=== PATIENT | female | born 1990 | race Caucasian/White ===

== ENCOUNTER 2020-06-01 07:45 | Emergency (ER) | payer MEDICAID, SELFPAY ==
[2020-06-01 07:48] VITALS: BP 160/118; PULSE 83; RESP 16; TEMP 36.3; O2SAT 98; BMI 36.2
--- NOTE | 2020-06-01 09:06 | ED.GENADULT ---
HPI - General Adult General Chief complaint: General Medical Stated complaint: breast issue Time Seen by Provider: 06/01/20 09:06 Source: patient Mode of arrival: ambulatory Limitations: no limitations History of Present Illness MD complaint: R breast pain Onset (ago): month(s) (3) Location: chest (R breast) Radiation: non-radiation Severity: moderate Quality: aching Pain Consistency: constant Relieving factors: none Exacerbating factors: none Associated symptoms: other (lump felt, red area, removed nipple ring in February and noted discharge at that time, + fam hx of breast cancer) Treatments prior to arrival: none Related Data Previous Rx's Medication Instructions Recorded cephalexin 500 mg PO TID 7 Days #21 cap 06/01/20 doxycycline hyclate 100 mg PO BID 7 Days #14 cap 06/01/20 hydrocodone-acetaminophen 1 tab PO Q6H PRN #12 tab 06/01/20 ondansetron 4 mg PO Q8H PRN #20 tab 06/01/20 Allergies Allergy/AdvReac Type Severity Reaction Status Date / Time No Known Allergies Allergy Unverified 03/05/20 15:55 Review of Systems Review of Systems: Constitutional : No Fever, No Chills ENT/Mouth : No sore throat, No Rhinorrhea Eyes: No Eye Pain, No Swelling, No Redness Cardiovascular : No Chest Pain, No SOB Respiratory : No Cough, No Sputum Gastrointestinal : No Nausea, No Vomiting, No Diarrhea, No abdominal Pain Genitourinary : No Dysuria, No Hematuria Musculoskeletal : No joint pain, No Myalgias, No Joint Swelling Skin : No Skin Lesions, no skin rash Neuro : No Weakness, No Numbness, No Headache Psych : No Anxiety, No Depression Heme/Lymph: No Bruising, No Bleeding,No Lymphadenopathy Endocrine : No Polyuria, No Polydipsia All other systems reviewed and are negative PMFSH Past Medical History Attestation statement: The following information was validated with the patient. Medical History Hypertension Social History Social History (Updated 06/01/20 @ 09:17 by Uma Emery DO) Smoking Status: Current every day smoker Use of substances other than those prescribed or required for medical reasons: No Advance Directives: No Advance Directives Information Provided: No Physical Exam Vital Signs: Vital Signs: Last Vital Signs Temp 97.3 F 06/01/20 07:48 Pulse 83 06/01/20 07:48 Resp 16 06/01/20 07:48 BP 160/118 H 06/01/20 07:48 Pulse Ox 98 06/01/20 07:48 Body Mass Index 36.2 Appearance: Alert. Oriented X3. No acute distress. Eyes: Pupils equal, round and reactive to light. ENT: Pharynx normal. Neck: Normal inspection. Neck supple. CVS: Normal heart rate and rhythm. Pulses normal. Chest: R breast lump felt 4cm under R areola, mild erythema, no discharge, no retraction of skin, ttp Respiratory: No respiratory distress. Breath sounds normal. Abdomen: Soft and nontender. Skin: Skin warm and dry. Normal skin color. Normal skin turgor. Extremities: No lower extremity edema. No calf ttp Neuro: Oriented X 3. No motor deficit. No sensory deficit. Course Course Course Narrative: will start on antibiotics and refer to Dr. Oakes for aspiration, I/D. Medical Decision Making MDM Narrative Medical decision making narrative: 29 yo female with R breast lump more painful now for the past few months, could be cyst/abscess though no extensive cellulitis, aware she needs to see PCP for mammogram, will order US and refer to Dr. Oakes for further management. Discharge Plan Discharge Clinical Impression: Abscess of breast Patient Disposition: Home, Self-Care Instructions: Abscess (ED) Additional Instructions: return to ED for any worsening symptoms or concerns PLEASE CALL DR. OAKES SOON POSSIBLE Prescriptions: New hydrocodone-acetaminophen 5-325 mg tablet 1 tab PO Q6H PRN (Reason: pain) Qty: 12 RF: 0 ondansetron 4 mg tablet,disintegrating 4 mg PO Q8H PRN (Reason: nausea and vomiting) Qty: 20 RF: 0 cephalexin 500 mg capsule 500 mg PO TID 7 Days Qty: 21 RF: 0 doxycycline hyclate 100 mg capsule 100 mg PO BID 7 Days Qty: 14 RF: 0 Referrals: Loretta Oakes MD [Physician] - 2 days Stand Alone Forms: Work/School Release
--- NOTE | 2020-06-01 09:13 | US_ITS ---
EXAMINATION: US DIAGNOSTIC ULTRASOUND BREAST, RIGHT CLINICAL INFORMATION: 29-year-old with pain discharge anterior right breast since nipple piercing removal. Emergency room visit. COMPARISON: None. TECHNIQUE: Ultrasound was performed of the hospital. Grayscale imaging and color Doppler are targeted to the area of clinical concern. [facility] FINDINGS: There is an irregular subareolar hypoechoic area with strong increased peripheral or internal vascularity and overall size approximately 2.6 x 2.1 x 2.5 cm. Finding is consistent with abscess and probable associated granulation tissue. There is no additional edema tracking in soft tissue planes. No other finding on submitted images. Results are discussed with the patient at time of visit. US/US breast RT limited IMPRESSION: Subareolar access and probable associated granulation tissue 2.6 x 2.1 x 2.5 cm. ASSESSMENT: BI-RADS 3: Probably Benign RECOMMENDATION: 1. Antibiotic coverage for subareolar abscess/granulation tissue and clinical follow-up. 2. Area would be amenable to ultrasound-guided fine-needle aspiration for Gram stain, culture and sensitivity. 3. Suggest follow up targeted ultrasound in 5- 14 days to confirm improvement.
--- NOTE | 2020-06-01 09:20 | PC.NURSE ---
ambulatory to main ed rm 19, changed in to hospital gown awaiting us
--- NOTE | 2020-06-01 09:42 | PC.NURSE ---
bedside us in progress
== END 2020-06-01 10:53 | disposition home or self-care (01) ==
PROVIDERS: Emergency Provider Emergency Medicine; PCP Internal Medicine
DX: N61.1 Abscess of the breast and nipple (principal); I10 Essential (primary) hypertension; Z80.3 Family history of malignant neoplasm of breast; F17.200 Nicotine dependence, unspecified, uncomplicated
CPT/HCPCS: 76642; 99202; 99283; 99284

== ENCOUNTER 2020-06-02 08:01 | Outpatient (REF) | payer MEDICAID, SELFPAY ==
--- NOTE | 2020-06-02 08:06 | US_ITS ---
EXAMINATION: US ULTRASOUND-GUIDED ASPIRATION BREAST, RIGHT CLINICAL INFORMATION: 29-year-old with pain anterior right breast since nipple piercing removal several months ago. Subareolar abscess/granulation tissue noted on diagnostic ultrasound performed at ER visit.. Patient has appointment with surgeon yesterday. Antibiotics begun last evening 2000 hours. COMPARISON: Diagnostic ultrasound right breast 06/01/2020 FINDINGS: Proper informed consent is obtained from the patient after discussion of the procedure, potential risks and complications, and alternatives. Patient was given an opportunity for questions. The patient appeared to understand. The patient consented to the procedure and signed the consent form. LOCATION: Retroareolar GUIDANCE: Ultrasound-guided; aseptic technique. LESION: Retroareolar abscess and probable associated granulation tissue irregular shaped, approximately 2.6 cm in greatest dimension with hyperemia on color Doppler. APPROACH: Lateral medial ANESTHESIA: 10 mL 1% lidocaine NEEDLE: 18-gauge straight. ASPIRATION: 1 CC cloudy blood-tinged fluid aspirated and sent to lab for Gram stain, culture and sensitivity. No additional fluid able to be aspirated. Aspiration at approximately 0853 hours. Procedure findings discussed with patient. Patient has upcoming appointment with surgeon next week. US/US breast cyst asp RT IMPRESSION: 1 CC cloudy blood-tinged fluid aspirated. Microbiology pending. No additional fluid able to be aspirated. ASSESSMENT: BI-RADS 3: Probably Benign RECOMMENDATION: 1. Continue with prescribed antibiotics. 2. Follow-up appointment with surgeon (scheduled next week), with follow-up ultrasound.
== END 2020-06-02 08:02 | disposition home or self-care (01) ==
LOC: HO.MAMMO 08:01
PROVIDERS: PCP Internal Medicine; Visit Provider Surgery
DX: N61.1 Abscess of the breast and nipple (principal); B96.89 Other specified bacterial agents as the cause of diseases classified elsewhere
CPT/HCPCS: 19000; 87071; 87205

== ENCOUNTER 2020-06-26 11:41 | Outpatient (REF) | payer MEDICAID, SELFPAY ==
[2020-06-26 13:53] LABS: MANUAL DIFF FLAG NO
[2020-06-26 14:01] LABS: Basophils Absolute Auto 0.1 X10*3/uL (0.0-0.2); Basophils Percent Auto 0.7 % (0-2); Eosinophils Absolute Auto 0.4 X10*3/uL (0.0-0.4); Eosinophils Percent Auto 3.3 % (0-4); Hematocrit 37.9 % (37-47); Hemoglobin 12.5 g/dl (12.0-16.0); Imm Gran Abs Auto 0.04 X10*3/uL (0.00-0.03); Imm Gran Pct Auto 0.4 % (0.0-0.4); Lymphocytes Absolute Auto 2.4 X10*3/uL (1.2-4.9); Lymphocytes Percent Auto 22.1 % (20-40); Mean Corpuscular Hemoglobin 30.4 pg (27.0-33.0); Mean Corpuscular Volume 92.2 fL (80-98); Mean Platelet Volume 10.7 fL (9.4-12.3); Monocytes Absolute Auto 0.7 X10*3/uL (0.1-1.2); Monocytes Percent Auto 6.4 % (2-11); Neutrophils Absolute Auto 7.1 X10*3/uL (2.0-8.3); Neutrophils Percent Auto 67.1 % (45-73); Platelet Count 282 X10*3/uL (160-400); Red Blood Count 4.11 X10*6/uL (4.20-5.50); White Blood Count 10.6 X10*3/uL (4.8-10.8)
[2020-06-26 14:29] LABS: Anion Gap 12 (12-20); Blood Urea Nitrogen 11 mg/dL (9-16); C Reactive Protein 0.26 mg/dL (< or = 0.50); Calcium 9.9 mg/dL (8.4-10.2); Carbon Dioxide 22 mmol/L (22-29); Chloride 105 mmol/L (96-108); Estimated Glomerular Filt Rate > 60; Glucose Fasting 110 mg/dL (60-99); Potassium 4.3 mmol/l (3.3-5.1); Sodium 135 mmol/L (135-145)
[2020-06-26 14:54] LABS: Thyroid Stimulating Hormone 0.81 uIU/mL (0.32-4.0)
== END 2020-06-26 11:42 | disposition home or self-care (01) ==
LOC: HO.10HDL 11:41
PROVIDERS: Visit Provider Internal Medicine
DX: I10 Essential (primary) hypertension (principal); R51.9 Headache, unspecified; R63.4 Abnormal weight loss
CPT/HCPCS: 36415; 80048; 84443; 85025; 86140

== ENCOUNTER → 2020-07-01 15:35 | Outpatient (BNVA) | payer MEDICAID, SELFPAY | PROVIDERS: PCP Internal Medicine; Visit Provider Surgery | DX: N61.1 Abscess of the breast and nipple (principal) | CPT/HCPCS: 99212 ==

== ENCOUNTER 2020-07-02 15:07 | Outpatient (REF) | payer MEDICAID, SELFPAY ==
--- NOTE | 2020-07-02 15:14 | US_ITS ---
EXAMINATION: US DIAGNOSTIC ULTRASOUND BREAST, RIGHT US ULTRASOUND-GUIDED ASPIRATION BREAST, RIGHT CLINICAL INFORMATION: Subareolar abscess and granulation tissue right breast with significant persistent pain. Symptoms since nipple piercing. Prior ultrasound guided aspiration 06/02/2020 (Gram stain: 4+ polys; 2+ gram-positive cocci. Routine culture: no growth after 2 days). Antibiotics completed several weeks ago. Request follow-up ultrasound and re-aspirate prior to new coarse antibiotics. COMPARISON: Ultrasound right breast 06/01/2020, ultrasound guided aspiration right breast 06/02/2020. DIAGNOSTIC ULTRASOUND, RIGHT TECHNIQUE: Ultrasound right breast is performed using real time eldridge scale imaging and color Doppler without and with harmonics. FINDINGS: There is a irregular shaped subareolar strongly hypoechoic area with surrounding hyperemia similar to prior ultrasound. Dimensions are approximately 2.0 x 1.8 x 1.6 cm compared with prior measurements 2.6 x 2.5 x 2.1 cm. No new fluid collection. Results are discussed with the patient at time of visit and also called and discussed with Dr. Malcolm. ULTRASOUND-GUIDED ASPIRATION, RIGHT: FINDINGS: Proper informed consent is obtained from the patient after discussion of the procedure, potential risks and complications, and alternatives. Patient was given an opportunity for questions. The patient appeared to understand. The patient consented to the procedure and signed the consent form. LOCATION: Subareolar GUIDANCE: Ultrasound-guided; aseptic technique. LESION: Irregular strongly hypoechoic area of fluid/granulation tissue with surrounding hyperemia. APPROACH: Lateral medial ANESTHESIA: 5 mL 1% lidocaine NEEDLE: 18-gauge straight. ASPIRATION: Only several drops of bloody fluid are retrieved. Material sent to lab for Gram stain and culture. US/US breast cyst asp RT IMPRESSION: 1. Subareolar abscess/granulation tissue with surrounding hyperemia slightly decreased in size. 2. Aspiration only provided several drops of bloody fluid. Microbiology pending. ASSESSMENT: BI-RADS 3: Probably Benign RECOMMENDATION: Clinical follow-up with Dr. Malcolm next week and follow-up right breast ultrasound same day.
== END 2020-07-02 15:08 | disposition home or self-care (01) ==
LOC: HO.MAMMO 15:07
PROVIDERS: Visit Provider Surgery
DX: N61.1 Abscess of the breast and nipple (principal)
CPT/HCPCS: 19000; 76642; 87071; 87205

== ENCOUNTER 2020-07-09 13:02 | Outpatient (REF) | payer MEDICAID, SELFPAY ==
--- NOTE | 2020-07-09 13:07 | US_ITS ---
EXAMINATION: US DIAGNOSTIC ULTRASOUND BREAST, RIGHT CLINICAL INFORMATION: Right breast subareolar abscess. COMPARISON: 07/02/2020 and studies dating back to 06/01/2020. TECHNIQUE: Ultrasound of the breast is performed with real-time eldridge scale imaging and color Doppler. FINDINGS: There is again noted to be heterogeneous hypoechoic structure in the subareolar region of the right breast which is smaller in size and now measures approximately 1.6 x 1.3 cm, previously on study of 07/02/2020, 2.0 x 1.8 x 1.6 cm, and on prior study of 06/01/2022, 2.6 x 2.5 x 2.1 cm in size. There is no significant fluid component. No new fluid collections identified. On the provided imaging I do not see any Doppler images so I cannot comment on if there is hyperemia or not. There is improvement in previously noted adjacent edema. Results are discussed with the patient at time of visit. US/US breast RT limited IMPRESSION: Resolving retroareolar right breast abscess with residual component as described. ASSESSMENT: BI-RADS 2: Benign. RECOMMENDATION: Patient to follow up with Dr. Malcolm.
== END 2020-07-09 13:03 | disposition home or self-care (01) ==
LOC: HO.MAMMO 13:02
PROVIDERS: Visit Provider Surgery
DX: N61.1 Abscess of the breast and nipple (principal)
CPT/HCPCS: 76642; 99212

== ENCOUNTER → 2020-08-12 08:21 | Outpatient (BNVA) | payer MEDICAID, SELFPAY | PROVIDERS: PCP Internal Medicine; Visit Provider Surgery | DX: N61.1 Abscess of the breast and nipple (principal) | CPT/HCPCS: 99212 ==

== ENCOUNTER → 2020-08-13 10:18 | Day surgery (SDC) | payer MEDICAID, SELFPAY ==
--- NOTE | 2020-08-12 10:48 | HO.ANESPROP2 ---
HPI - Anesthesia Eval Consult details Narrative: 30yo F for Right I&D Abscess breast Cx'd 08/13/20 d/t elevated bp. Declined ED. PMF Active Problems Active Problems: All Active Problems (Updated 06/02/20 @ 10:38 by Taz Schafer RN) Abscess of breast, right (Acute) Past Medical History Medical History Hypertension Family History Family History Maternal Grandmother History of breast cancer Surgical History Surgical History (Updated 08/13/20 @ 10:41 by Hannah Perry RN) H/O tubal ligation History of bunionectomy History of facial surgery Social History Social History Smoking Status: Current every day smoker Cigarettes Per Day: 8 Use of substances other than those prescribed or required for medical reasons: Yes Substance Use Frequency: Daily Advance Directives: No Advance Directives Information Provided: Yes Meds Allergies Allergy/AdvReac Type Severity Reaction Status Date / Time No Known Allergies Allergy Verified 08/13/20 10:41 Home Medications Medication Instructions Recorded Confirmed Last Taken Type lisinopril 1 tab PO DAILY 08/13/20 08/13/20 Unknown History Exam Exam Date and Time: August 12, 2020 1048 Pertinent Lab Results Pertinent Lab Results: Laboratory Tests 06/26/20 06/26/20 11:50 11:50 WBC 10.6 Hgb 12.5 Hct 37.9 Plt Count 282 Sodium 135 Potassium 4.3 Chloride 105 Carbon Dioxide 22 BUN 11 Creatinine 0.81 Assessment and Plan Assessment Anesthesia Assessment: Chart Reviewed
[2020-08-13 11:24] VITALS: BP 183/107; PULSE 61; RESP 18; O2SAT 97; BMI 37.5
[2020-08-13] MEDS: Lactated Ringers 1,000 ML 100 ML IVCONT (11:30)
--- NOTE | 2020-08-13 11:33 | PC.NURSE ---
anesthesia made aware of bp 183/107at 1110. no new orders at present. will come back to evauate.
--- NOTE | 2020-08-13 12:12 | PC.NURSE ---
bp remains high at 180/108. anesthesia made aware.
--- NOTE | 2020-08-13 12:37 | PC.NURSE ---
bp rechecked again while anesthesia present. 193/128 lt arm sitting, hr in low 60's, occ pvcs still seen.. anes to speak with surgeon.
--- NOTE | 2020-08-13 12:50 | PC.NURSE ---
surgeon at bedside and cancelled surgery due to high bp's, chance of stroke under anesthesia. told pt to go to emergency room for evaluation but pt refusing and going home. after surgeon left bedside, asked about what she should do about pain. md texted and pt told he will send a prescription to her pharmacy. pt aware . left home.
== END | disposition home or self-care (01) ==
PROVIDERS: PCP Internal Medicine; Visit Provider Surgery
DX: N61.1 Abscess of the breast and nipple (principal); Z53.9 Procedure and treatment not carried out, unspecified reason
CPT/HCPCS: J0690

== ENCOUNTER → 2020-08-25 15:52 | Outpatient (BNVA) | payer MEDICAID, SELFPAY | PROVIDERS: PCP Internal Medicine; Visit Provider Surgery | DX: N61.1 Abscess of the breast and nipple (principal) | CPT/HCPCS: 99212 ==

== ENCOUNTER 2021-06-24 11:44 | Outpatient (REF) | payer MEDICAID, SELFPAY ==
[2021-06-24 11:57] LABS: COVID-19 Test Positive (Negative)
== END 2021-06-24 11:45 | disposition home or self-care (01) ==
LOC: HO.LNP 11:44
PROVIDERS: Visit Provider Internal Medicine
DX: R51.9 Headache, unspecified (principal); R68.83 Chills (without fever); Z20.822 Contact with and (suspected) exposure to COVID-19
CPT/HCPCS: 87635

== ENCOUNTER 2022-03-08 14:19 | Outpatient (REF) | payer MEDICAID, SELFPAY ==
[2022-03-08 15:46] LABS: Influenza A PCR NEGATIVE (Negative); Influenza B PCR NEGATIVE (Negative); Resp Syncy Virus RNA Qual PCR NEGATIVE (Negative); SARS COV2 PCR INHOUSE NEGATIVE (Negative)
== END 2022-03-08 14:20 | disposition home or self-care (01) ==
LOC: HO.LNP 14:19
PROVIDERS: Visit Provider Internal Medicine
DX: Z20.822 Contact with and (suspected) exposure to COVID-19 (principal); J02.9 Acute pharyngitis, unspecified; R51.9 Headache, unspecified
CPT/HCPCS: 0241U

== ENCOUNTER 2022-10-05 13:58 | Outpatient (REF) | payer MEDICAID, SELFPAY ==
[2022-10-05 14:10] LABS: MANUAL DIFF FLAG NO
[2022-10-05 15:31] LABS: Basophils Absolute Auto 0.1 X10*3/uL (0.0-0.2); Basophils Percent Auto 0.6 % (0-2); Eosinophils Absolute Auto 0.3 X10*3/uL (0.0-0.4); Eosinophils Percent Auto 2.8 % (0-4); Hemoglobin 12.8 g/dl (12.0-16.0); Imm Gran Abs Auto 0.03 X10*3/uL (0.00-0.03); Imm Gran Pct Auto 0.3 % (0.0-0.4); Lymphocytes Absolute Auto 2.2 X10*3/uL (1.2-4.9); Lymphocytes Percent Auto 22.3 % (20-40); Mean Corpuscular HGB Conc 32.8 g/dl (31.0-35.0); Mean Corpuscular Hemoglobin 29.1 pg (27.0-33.0); Mean Corpuscular Volume 88.6 fL (80.0-98.0); Monocytes Absolute Auto 0.7 X10*3/uL (0.1-1.2); Monocytes Percent Auto 6.8 % (2-11); Neutrophils Absolute Auto 6.6 x10*3/uL (2.0-8.3); Neutrophils Percent Auto 67.2 % (45-73); Platelet Count 295 X10*3/uL (160-400); Red Cell Distribution Width 12.8 % (11.0-16.0); White Blood Count 9.8 X10*3/uL (4.8-10.8)
[2022-10-05 15:41] LABS: Estimated Average Glucose 105 mg/dL; Hemoglobin A1c % 5.3 %
[2022-10-05 15:59] LABS: Alanine Aminotransferase 27 U/L (0-31); Albumin Level 4.1 g/dL (3.5-5.0); Alkaline Phosphatase 98 U/L (39-117); Anion Gap 9 (12-20); Aspartate Amino Transferase 22 U/L (5-31); Bilirubin Total 0.5 mg/dL (0.0-1.0); Blood Urea Nitrogen 13 mg/dL (9-16); Calcium 10.1 mg/dL (8.4-10.2); Carbon Dioxide 28 mmol/L (22-29); Chloride 105 mmol/L (96-108); Cholesterol 131 mg/dL; Estimated Glomerular Filt Rate > 60; Glucose Random 89 mg/dL (60-115); Potassium 4.2 mmol/L (3.3-5.1); Sodium 138 mmol/L (135-145); Total Protein 7.1 g/dL (6.5-8.0)
[2022-10-05 16:15] LABS: Thyroid Stimulating Hormone 0.71 uIU/mL (0.32-4.0)
[2022-10-05 16:16] LABS: Free T4 (Free Thyroxine) 0.94 ng/dL (0.71-1.85)
== END 2022-10-05 13:59 | disposition home or self-care (01) ==
LOC: HO.LAB 13:58
PROVIDERS: PCP Internal Medicine; Visit Provider Internal Medicine
DX: I10 Essential (primary) hypertension (principal); R63.5 Abnormal weight gain; R53.83 Other fatigue; E11.9 Type 2 diabetes mellitus without complications
CPT/HCPCS: 36415; 80053; 82465; 83036; 84439; 84443; 85025; 86140

== ENCOUNTER 2022-12-06 12:38 | Emergency (ER) | payer MEDICAID, SELFPAY ==
--- NOTE | ~2022-12-06 | XR_ITS ---
EXAMINATION: XR LUMBOSACRAL SPINE CLINICAL INFORMATION: Pain COMPARISON: None available. TECHNIQUE: Three views of the lumbosacral spine. FINDINGS: The vertebral bodies and posterior elements are normal. The disc spaces are preserved and the vertebral alignment is normal. The paraspinal soft tissues are normal. XR/XR lumbar spine 2-3V IMPRESSION: Unremarkable examination.
[2022-12-06 13:16] VITALS: BP 188/116; PULSE 69; RESP 16; TEMP 36.4; O2SAT 98; BMI 41.6
[2022-12-06] MEDS: Ketorolac Tromethamine 30 MG/ML VIAL IM (14:25)
[2022-12-06 14:29] VITALS: BP 218/124; PULSE 70; RESP 16; O2SAT 99
[2022-12-06] MEDS: lisinopriL 10 MG TABLET PO (14:42)
[2022-12-06] MEDS: Acetaminophen 325 MG TABLET 975 MG PO (15:51)
[2022-12-06 15:55] VITALS: BP 181/118; PULSE 90; RESP 20; TEMP 36.7; O2SAT 98
--- NOTE | 2022-12-06 16:04 | ED_ITS ---
HPI - Back Pain/Injury General Chief Complaint: Back Pain/Injury Stated Complaint: work injury Time Seen by Provider: 12/06/22 13:39 Source: patient and RN notes reviewed Mode of arrival: ambulatory Limitations: no limitations History of Present Illness HPI Narrative: This is a 32-year-old female, with a past medical history of hypertension, presenting to the emergency department for evaluation of back pain since today. Patient reports that she was caring a large heavy been 1 and suddenly she developed back pain. Denies any weakness. Denies saddle anesthesia. No urinary or bowel incontinence. No numbness tingling or weakness. Denies history of similar symptoms in the past. Denies taking any medications at home to treat her current symptoms. Denies any other complaints or concerns at this time. MD elicited complaint: back pain Timing: constant Similar Symptoms Previously: No Quality: aching Location: lumbar spine Radiation: none Exacerbating factors: movement Relieving factors: immobilization Context: while lifting Associated symptoms: denies other symptoms Work related injury: Yes Related Data Home Medications Medication Instructions Recorded Confirmed lisinopril 5 mg tablet 1 tab PO DAILY 08/13/20 08/25/20 Previous Rx's Medication Instructions Recorded ondansetron 4 mg disintegrating 4 mg PO Q8H PRN nausea and 06/01/20 tablet vomiting #20 tabs oxycodone 5 mg tablet 5 mg PO Q6H PRN pain #10 tabs 08/13/20 amoxicillin 500 mg-potassium 1 tab PO Q8H #30 tabs 08/25/20 clavulanate 125 mg tablet (Augmentin) cyclobenzaprine 5 mg tablet 5 mg PO TID PRN muscle spasm #14 12/06/22 tabs ibuprofen 600 mg tablet 600 mg PO Q6H PRN pain #45 tabs 12/06/22 lisinopril 10 mg tablet 10 mg PO DAILY #10 tabs 12/06/22 prednisone 20 mg tablet 40 mg PO DAILY 3 days #6 tabs 12/06/22 Allergies Allergy/AdvReac Type Severity Reaction Status Date / Time No Known Allergies Allergy Verified 08/13/20 10:41 Review of Systems Review of Systems: Constitutional: No Weight loss, No Fever, No Chills ENT/Mouth: No Ear Pain, No Nasal Congestion, No Sinus Pain, No Hoarseness, No sore throat, No Rhinorrhea, No Swallowing Difficulty Cardiovascular: No Chest Pain, No SOB Respiratory: No Cough, No Sputum, No Wheezing Gastrointestinal: No Nausea, No Vomiting, No Diarrhea, No Constipation, No Abdominal pain Genitourinary: No Dysuria, No Urinary Frequency, No Hematuria, No Urinary Incontinence/retention, No Urgency, No Flank Pain Musculoskeletal: +Back pain, No joint pain, No Myalgias, No Joint Swelling Skin: No Skin Lesions, No rash Neuro: No Weakness, No Numbness, No Paresthesias Yes all other systems are reviewed and are negative Constitutional: Constitutional: Reports as per [facility] Past Medical History Medical History (Updated 12/06/22 @ 17:15 by SERENITY Rodas) Hypertension Surgical History (Updated 08/13/20 @ 10:41 by Hannah Perry RN) H/O tubal ligation History of bunionectomy History of facial surgery Family History Family History Maternal Grandmother History of breast cancer Social History Social History Cigarettes Per Day: 8 Advance Directives: No Advance Directives Information Provided: Yes Physical Exam Vital Signs: Vital Signs: Last Vital Signs Temp 98.1 F 12/06/22 15:55 Pulse 90 12/06/22 15:55 Resp 20 12/06/22 15:55 BP 181/118 H 12/06/22 15:55 Pulse Ox 98 12/06/22 15:55 O2 Del Method Room Air 12/06/22 15:55 BMI result Body Mass Index 41.6 Const: General: cooperative, comfortable and no acute distress Orientation/consciousness: patient oriented x3 Limitations: no limitations HEENT: Head: Yes normal to inspection, Yes normocephalic and Yes atraumatic Ears: hearing grossly normal bilaterally General nose exam: Normal external nose present Face and sinus: Yes normal facial exam Mouth: Normal oral and palatal mucosa present, oropharynx normal and moist mucous membranes Throat: Yes posterior oropharynx normal Eyes: General: appearance normal, both eyes and all related structures Eyelids: Yes eyelids normal Conjunctivae: conjunctivae normal Sclerae: sclerae normal Pupils: Equal, round and reactive pupils present EOM: EOMs intact bilaterally Neck: Neck: Yes normal visual inspection, Yes full ROM and Yes no lymphadenopathy Lymphatic: no lymphadenopathy noted Chest: Chest palpation & inspection: normal inspection of the chest Resp: Effort & Inspection: normal respiratory effort and able to speak in complete sentences Auscultation: clear to auscultation bilaterally, no crackles, no rales, no rhonchi and no wheezes Cardio: Rate: regular rate Rhythm: regular rhythm Heart sounds: S1 normal heart sound present and S2 normal heart sound present GI: Inspection: Yes normal to inspection Back/Spine/Pelvis: Other: Tenderness palpation along the midline lumbar spine, and lumbar paraspinous muscles. Able to flex knee and flex at hip bilaterally. Negative straight leg raise. Distal sensation circulation intact. Patellar reflexes 2+ Skin: General skin exam: no rashes or lesions noted Trauma: no lacerations or abrasions Wounds: no wounds Neuro: General: patient oriented x3 and moves all extremities Cranial nerves: Yes Equal, round and reactive pupils present Extrem: General: Yes normal to inspection Right upper extremity: normal to inspection Left upper extremity: normal to inspection Right lower extremity: normal to inspection Left lower extremity: normal to inspection Course Reevaluation(s) Reevaluation #1: Patient's pain improves slightly. Patient's blood pressure improved after receiving lisinopril however still high. Patient has no blurred vision, chest pain, headaches, dizziness. I advised patient to follow-up with her primary care physician as lisinopril may not be the appropriate drug of choice for management of her high blood pressure. However given patient is asymptomatic, elevated blood pressure today may be secondary due to pain. Patient given red flag warning signs of when to return. Patient understands and agrees with plan. Discharge patient with 1 week course of lisinopril as patient ran out and is waiting for her doctor to refill this medication. Patient stable for discharge. Medications Administered Discontinued Medications Generic Name Dose Route Start Last Admin Trade Name Sammyq PRN Reason Stop Dose Admin Acetaminophen 975 mg 12/06/22 15:36 12/06/22 15:51 Acetaminophen 325 Mg Tablet PO 12/06/22 15:37 975 mg ONCE ONE Administration Ketorolac Tromethamine 30 mg 12/06/22 14:22 12/06/22 14:25 Ketorolac Tromethamine 30 Mg/Ml Vial IM 12/06/22 14:23 30 mg ONCE ONE Administration Lisinopril 10 mg 12/06/22 14:37 12/06/22 14:42 Lisinopril 10 Mg Tablet PO 12/06/22 14:38 10 mg ONCE ONE Administration Protocol Medical Decision Making Medical Decision Making MDM Narrative: 32-year-old female presenting to the emergency department for evaluation of back pain since today after lifting a heavy object at work. On arrival, patient's blood pressure 188/116. She reports that she has a history of high blood pressure and has been without her medications for the last week. I suspect that her blood pressure is elevated due to pain as well as medication noncompliance. On examination, patient does have mild tenderness to palpation along the lumbar midline spine. No red flag symptoms. Plan: X-ray lumbar spine, Toradol 30 mg IM, lisinopril 10 mg (patient takes this at home) Differential Diagnosis Differential Diagnoses: The differential diagnosis associated with the presentation includes Sciatica, lumbar strain, lumbar sprain, spasm, disc herniation Radiology Impression Discussion of test interpretation with radiology: I have reviewed the radiologist's reading. Radiologist Impression: EXAMINATION: XR LUMBOSACRAL SPINE CLINICAL INFORMATION: Pain COMPARISON: None available. TECHNIQUE: Three views of the lumbosacral spine. FINDINGS: The vertebral bodies and posterior elements are normal. The disc spaces are preserved and the vertebral alignment is normal. The paraspinal soft tissues are normal. XR/XR lumbar spine 2-3V IMPRESSION: Unremarkable examination. Discharge Plan Discharge Clinical Impression: Back pain Patient Disposition: Home, Self-Care Instructions: Back Pain (ED) Additional Instructions: Please take prescribed medications as directed. Please be aware that Flexeril can cause drowsiness, do not drink alcohol or drive while taking this medication. If any new or worsening symptoms occur including but not limited to urinary or bowel incontinence, numbness or tingling, please return for re-evaluation. Follow-up with your primary care physician as they may want to refer you to physical therapy for further management. Prescriptions: New cyclobenzaprine 5 mg tablet 5 mg PO TID PRN (Reason: muscle spasm) Qty: 14 0RF ibuprofen 600 mg tablet 600 mg PO Q6H PRN (Reason: pain) Qty: 45 0RF prednisone 20 mg tablet 40 mg PO DAILY 3 Days Qty: 6 0RF lisinopril 10 mg tablet 10 mg PO DAILY Qty: 10 0RF No Action ondansetron 4 mg tablet,disintegrating 4 mg PO Q8H PRN (Reason: nausea and vomiting) Qty: 20 0RF lisinopril 5 mg tablet 1 tab PO DAILY oxycodone 5 mg tablet 5 mg PO Q6H PRN (Reason: pain) Qty: 10 0RF amoxicillin-pot clavulanate [Augmentin] 500-125 mg tablet 1 tab PO Q8H Qty: 30 0RF Stand Alone Forms: Work/School Release Interventions: ED Discharge Assessment Last Done: 12/06/22 17:23 Discharge Date/Time: 12/06/22 17:28
== END 2022-12-06 17:28 | disposition home or self-care (01) ==
PROVIDERS: Emergency Provider Emergency Medicine; PCP Internal Medicine
DX: M54.50 Low back pain, unspecified (principal); Z79.899 Other long term (current) drug therapy
CPT/HCPCS: 72100; 96372; 99283; 99284; J1885

== ENCOUNTER 2023-01-31 08:13 | Emergency (ER) | payer MEDICAID, SELFPAY ==
--- NOTE | ~2023-01-31 | CT_ITS ---
EXAMINATION: CT ABDOMEN AND PELVIS WITHOUT CONTRAST CLINICAL INFORMATION: Back and right flank pain COMPARISON: None available. TECHNIQUE: Multidetector volumetric imaging was performed from the superior aspect of the liver through the pubic symphysis. Sagittal and coronal reformatted images were obtained on the technologist's workstation. This CT examination was performed using dose optimization techniques as appropriate, variously including the following: *Automated exposure control *Adjustment of mA and/or kV according to patient size (this includes techniques or standardized protocols for targeted exams where dose is matched to indication/reason for exam; i.e. 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 Nonobstructive bowel pattern. LUNG BASES: The visualized lung bases are unremarkable. LIVER, GALLBLADDER, AND BILIARY TREE: The liver is normal in size, shape, and attenuation. No focal hepatic lesion or biliary ductal dilatation is present. The gallbladder is unremarkable with no evidence of radiopaque gallstones, gallbladder wall thickening, or obvious pericholecystic inflammatory changes. PANCREAS: Unremarkable. SPLEEN: Unremarkable. Splenule. ADRENAL GLANDS: Unremarkable. KIDNEYS AND URETERS: The kidneys are normal in size, shape, and attenuation. No hydronephrosis, hydroureter, or calculi seen. No perinephric stranding. BLADDER: Unremarkable. GASTROINTESTINAL TRACT: Stomach is decompressed. Nonobstructive bowel pattern. Unremarkable appendix. Mild fecal retention. ABDOMINAL WALL: Large rectus diastasis with protrusion of the mesenteric fat. Small umbilical hernia with surrounding stranding. LYMPH NODES: Normal. VASCULAR: Unremarkable. PELVIC VISCERA: Unremarkable. Phleboliths. OSSEOUS STRUCTURES: Unremarkable. CT/CT abdomen pelvis wo IV con IMPRESSION: No acute intra-abdominal or pelvic pathology. Fleischner guidelines were followed.
[2023-01-31 08:20] VITALS: BP 180/120; PULSE 79; RESP 18; TEMP 36.7; O2SAT 99; BMI 44.4
--- NOTE | 2023-01-31 09:36 | ED.BACK ---
HPI - Back Pain/Injury General Chief Complaint: Back Pain/Injury Stated Complaint: Lower back pain Time Seen by Provider: 01/31/23 09:15 Source: patient and RN notes reviewed Mode of arrival: ambulatory Limitations: no limitations History of Present Illness HPI Narrative: This is a 32-year-old female, with a past medical history of hypertension, presenting to the emergency department with complaints of low back pain x1.5 weeks. Patient denies any recent trauma or injury to her back. States that her pain hasa been progressively worsening since onset. Patient states that the pain radiates into her right flank and right groin. Pain worsens with movement and ambulation. Patient reporting some urinary urgency and frequency. Denies dysuria or hematuria. She has been taking [id number] ibuprofen without any relief. No urinary or or retention. No saddle anesthesia. No history of kidney stones. She was seen here 2 months ago for back pain however patient reports that this pain is much worse, and in a different location. No other complaints or concerns at this time. MD elicited complaint: back pain Pertinent past history: prior back pain Onset (ago): day(s) Timing: constant Severity: moderate Pain scale (0-10): 8 Quality: stabbing Location: lumbar spine and thoracic spine Radiation: abdomen and groin Exacerbating factors: movement Relieving factors: immobilization Associated symptoms: increased urinary urgency and increased urinary frequency Related Data Home Medications Medication Instructions Recorded Confirmed lisinopril 5 mg tablet 1 tab PO DAILY 08/13/20 08/25/20 Previous Rx's Medication Instructions Recorded ondansetron 4 mg disintegrating 4 mg PO Q8H PRN nausea and 06/01/20 tablet vomiting #20 tabs oxycodone 5 mg tablet 5 mg PO Q6H PRN pain #10 tabs 08/13/20 amoxicillin 500 mg-potassium 1 tab PO Q8H #30 tabs 08/25/20 clavulanate 125 mg tablet (Augmentin) cyclobenzaprine 5 mg tablet 5 mg PO TID PRN muscle spasm #14 12/06/22 tabs ibuprofen 600 mg tablet 600 mg PO Q6H PRN pain #45 tabs 12/06/22 lisinopril 10 mg tablet 10 mg PO DAILY #10 tabs 12/06/22 prednisone 20 mg tablet 40 mg PO DAILY 3 days #6 tabs 12/06/22 acetaminophen 325 mg capsule 650 mg PO QID PRN pain #30 caps 01/31/23 (Tylenol) amlodipine 5 mg tablet 5 mg PO DAILY 30 days #30 tabs 01/31/23 cyclobenzaprine 5 mg tablet 5 mg PO TID PRN muscle spasm #14 01/31/23 tabs prednisone 20 mg tablet 40 mg PO DAILY 5 days #10 tabs 01/31/23 Allergies Allergy/AdvReac Type Severity Reaction Status Date / Time No Known Allergies Allergy Verified 08/13/20 10:41 Review of Systems Review of Systems: Yes all other systems are reviewed and are negative Constitutional: Constitutional: Reports as per HPI [facility] Past Medical History Medical History Hypertension Surgical History H/O tubal ligation History of bunionectomy History of facial surgery Family History Family History Maternal Grandmother History of breast cancer Social History Social History Cigarettes Per Day: 8 Advance Directives: No Physical Exam Vital Signs: Vital Signs: Last Vital Signs Temp 98.1 F 01/31/23 08:20 Pulse 79 01/31/23 08:20 Resp 18 01/31/23 08:20 BP 182/90 H 01/31/23 13:59 Pulse Ox 99 01/31/23 08:20 O2 Del Method Room Air 01/31/23 08:20 BMI result Body Mass Index 44.4 Const: General: cooperative, comfortable and no acute distress Orientation/consciousness: patient oriented x3 Limitations: no limitations HEENT: Head: Yes normal to inspection, Yes normocephalic and Yes atraumatic Ears: hearing grossly normal bilaterally General nose exam: Normal external nose present Face and sinus: Yes normal facial exam Mouth: Normal oral and palatal mucosa present, oropharynx normal and moist mucous membranes Throat: Yes posterior oropharynx normal Eyes: General: appearance normal, both eyes and all related structures Eyelids: Yes eyelids normal Conjunctivae: conjunctivae normal Sclerae: sclerae normal Pupils: Equal, round and reactive pupils present EOM: EOMs intact bilaterally Neck: Neck: Yes normal visual inspection, Yes full ROM and Yes no lymphadenopathy Lymphatic: no lymphadenopathy noted Chest: Chest palpation & inspection: normal inspection of the chest Resp: Effort & Inspection: normal respiratory effort and able to speak in complete sentences Auscultation: clear to auscultation bilaterally, no crackles, no rales, no rhonchi and no wheezes Cardio: Rate: regular rate Rhythm: regular rhythm Heart sounds: S1 normal heart sound present and S2 normal heart sound present GI: Other: Abdomen is soft, with tenderness to palpation in the right upper and lower abdomen. No rebound or guarding. Normoactive bowel sounds present in all 4 quadrants. Inspection: Yes normal to inspection : Other: No CVA tenderness Back/Spine/Pelvis: Other: Exquisite tenderness to palpation the midline thoracic spine. Pain exacerbating with movement. Skin: General skin exam: no rashes or lesions noted Trauma: no lacerations or abrasions Wounds: no wounds Neuro: General: patient oriented x3 and moves all extremities Cranial nerves: Yes Equal, round and reactive pupils present Extrem: General: Yes normal to inspection Right upper extremity: normal to inspection Left upper extremity: normal to inspection Right lower extremity: normal to inspection Left lower extremity: normal to inspection Course Reevaluation(s) Reevaluation #1: Abdominal/pelvis CT unremarkable. Urinalysis without any tract infection. HCG negative. Symptoms likely due to muscle spasm. Discussed workup with patient and answered all questions appropriately. Will discharge patient prednisone, Tylenol, and muscle relaxants. Patient urged the importance of following up with primary care physician she likely needs additional MRI physical therapy for management of acute exacerbations of back pain. Patient understands and agrees with plan. Patient has a history of hypertension, repeat blood pressure 196/120. She has no chest pain, shortness of breath, headache, dizziness, or vision changes. Given this reading, will medicate with amlodipine 2.5 mg p.o. and recheck blood pressure Time: 11:08 Reevaluation #2: Repeat blood pressure not improved, discussed case with attending physician, Dr. Medina. Given amlodipine 5mg PO. Time: 12:10 Reevaluation #3: BP improved to 182/90. Pt remains asymptomatic, no chest pain, shortness of breath, headache, dizziness or blurred vision. Urged the importance of taking prescribed HTN medications. Given rx for amlodipine and advised to f/u with PCP CURT. Pt understands and agrees with plan. Pt stable for d/c. Medications Administered Discontinued Medications Generic Name Dose Route Start Last Admin Trade Name Thomas PRN Reason Stop Dose Admin Amlodipine Besylate 2.5 mg 01/31/23 11:20 01/31/23 11:36 Amlodipine Besylate 2.5 Mg Tablet PO 01/31/23 11:21 2.5 mg ONCE ONE Administration Protocol Amlodipine Besylate 5 mg 01/31/23 12:38 01/31/23 13:03 Amlodipine Besylate 5 Mg Tablet PO 01/31/23 12:39 5 mg ONCE ONE Administration Protocol Ketorolac Tromethamine 30 mg 01/31/23 09:33 01/31/23 09:39 Ketorolac Tromethamine 30 Mg/Ml Vial IM 01/31/23 09:34 30 mg ONCE ONE Administration Medical Decision Making Medical Decision Making [facility] Narrative: 32-year-old female presenting to the emergency department for evaluation atraumatic back pain x1 and half weeks. This patient presents with back pain most consistent with lumbar back spasm, however given urinary symptoms including urgency and frequency, as well as right sided flank pain, will order CT abdomen and pelvis to rule out kidney stone. Differential diagnoses includes lumbago versus musculoskeletal spasm / strain versus sciatica.No back pain red flags on history or physical. Presentation not consistent with malignancy (lack of history of malignancy, lack of B symptoms), fracture (no trauma, no bony tenderness to palpation), cauda equina (no bowel or urinary incontinence/retention, no saddle anesthesia, no distal weakness), pyelonephritis (afebrile, no CVAT). Patient has a history of hypertension reports that she has been without her lisinopril medication for couple of weeks states that her medications spilled in her purse. She has not followed up with her primary care physician. Blood pressure elevated at 180/120, will repeat once given Toradol Plan: UA, abd/pelvis CT ordered given r flank pain Differential Diagnosis Differential Diagnoses: The differential diagnosis associated with the presentation includes See above Admission/Observation Consideration of admission/observation: Escalation of care including admission/observation considered Patient would have been admitted to the hospital had her work up had any findings where hospital admission was appropriate and her clinical presentation warranted hospital admission. Lab Data [facility] Lab Attestation statement: I reviewed the patient's lab results. Mildly elevated WBC, likely reactive due to pain. UA appears contaminated, will not treat as UTI. 01/31/23 12:50 01/31/23 12:50 Labs: Lab Results 01/31/23 01/31/23 01/31/23 Range/Units 09:32 09:32 12:50 WBC 12.5 H (4.8-10.8) X10*3/uL RBC 4.20 (4.20-5.50) X10*6/uL Hgb 12.3 (12.0-16.0) g/dl Hct 37.0 (37.0-47.0) % MCV 88.1 (80.0-98.0) fL MCH 29.3 (27.0-33.0) pg MCHC 33.2 (31.0-35.0) g/dl RDW 12.9 (11.0-16.0) % Plt Count 261 (160-400) X10*3/uL MPV 9.2 L (9.4-12.3) fL Immature Gran % (Auto) 0.3 (0.0-0.4) % Neut % (Auto) 71.8 (45-73) % Lymph % (Auto) 18.1 L (20-40) % [place] % (Auto) 6.5 (2-11) % Eos % (Auto) 2.7 (0-4) % Baso % (Auto) 0.6 (0-2) % Lymph # (Auto) 2.3 (1.2-4.9) X10*3/uL [place] # (Auto) 0.8 (0.1-1.2) X10*3/uL Eos # (Auto) 0.3 (0.0-0.4) X10*3/uL Baso # (Auto) 0.1 (0.0-0.2) X10*3/uL Abs Immat Gran (auto) 0.04 H (0.00-0.03) X10*3/uL Absolute Neuts (auto) 9.0 H (2.0-8.3) x10*3/uL Absolute Nucleated RBC 0.000 (0.0-0.012) X10*3/uL Nucleated RBC % (auto) 0.0 (0.0-0.2) /100WBC Sodium (135-145) mmol/L Potassium (3.3-5.1) mmol/L Chloride (96-108) mmol/L Carbon Dioxide (22-29) mmol/L Anion Gap (12-20) BUN (9-16) mg/dL Creatinine (0.5-1.4) mg/dL Estim Creat Clear Calc Estimated GFR Random Glucose (60-115) mg/dL Calcium (8.4-10.2) mg/dL Magnesium (1.6-2.6) mg/dL Total Bilirubin (0.0-1.0) mg/dL Direct Bilirubin (0.0-0.5) mg/dL AST (5-31) U/L ALT (0-31) U/L Alkaline Phosphatase (39-117) U/L Total Protein (6.5-8.0) g/dL Albumin (3.5-5.0) g/dL Urine Color Yellow Urine Appearance Clear Urine pH 7.0 (5.0-9.0) Ur Specific [place] 1.015 (1.005-1.025) Urine Protein 30 (1+) H (Neg-Trace) mg/dL Urine Glucose (UA) Negative (Negative) mg/dL Urine Ketones Negative (Negative) mg/dL Urine Blood Negative (Negative) Urine Nitrite Negative (Negative) Ur Leukocyte Esterase Negative (Negative) Urine RBC 0-2 (0-2) /HPF Urine WBC 0-5 (0-5) /HPF Ur Squamous Epith Cells 6-10 (0-2) /HPF Urine Bacteria Trace (None Seen) Hyaline Casts 0-2 (0-2) /LPF Urine Test NEGATIVE (NEGATIVE) 01/31/23 Range/Units 12:50 WBC (4.8-10.8) X10*3/uL RBC (4.20-5.50) X10*6/uL Hgb (12.0-16.0) g/dl Hct (37.0-47.0) % MCV (80.0-98.0) fL MCH (27.0-33.0) pg MCHC (31.0-35.0) g/dl RDW (11.0-16.0) % Plt Count (160-400) X10*3/uL MPV (9.4-12.3) fL Immature Gran % (Auto) (0.0-0.4) % Neut % (Auto) (45-73) % Lymph % (Auto) (20-40) % [place] % (Auto) (2-11) % Eos % (Auto) (0-4) % Baso % (Auto) (0-2) % Lymph # (Auto) (1.2-4.9) X10*3/uL [place] # (Auto) (0.1-1.2) X10*3/uL Eos # (Auto) (0.0-0.4) X10*3/uL Baso # (Auto) (0.0-0.2) X10*3/uL Abs Immat Gran (auto) (0.00-0.03) X10*3/uL Absolute Neuts (auto) (2.0-8.3) x10*3/uL Absolute Nucleated RBC (0.0-0.012) X10*3/uL Nucleated RBC % (auto) (0.0-0.2) /100WBC Sodium 137 (135-145) mmol/L Potassium 4.0 (3.3-5.1) mmol/L Chloride 104 (96-108) mmol/L Carbon Dioxide 26 (22-29) mmol/L Anion Gap 11 L (12-20) BUN 10 (9-16) mg/dL Creatinine 0.81 (0.5-1.4) mg/dL Estim Creat Clear Calc 110.1 Estimated GFR > 60 Random Glucose 107 (60-115) mg/dL Calcium 10.2 (8.4-10.2) mg/dL Magnesium 1.9 (1.6-2.6) mg/dL Total Bilirubin 0.6 (0.0-1.0) mg/dL Direct Bilirubin 0.2 (0.0-0.5) mg/dL AST 16 (5-31) U/L ALT 14 (0-31) U/L Alkaline Phosphatase 92 (39-117) U/L Total Protein 7.2 (6.5-8.0) g/dL Albumin 3.8 (3.5-5.0) g/dL Urine Color Urine Appearance Urine pH (5.0-9.0) Ur Specific [place] (1.005-1.025) Urine Protein (Neg-Trace) mg/dL Urine Glucose (UA) (Negative) mg/dL Urine Ketones (Negative) mg/dL Urine Blood (Negative) Urine Nitrite (Negative) Ur Leukocyte Esterase (Negative) Urine RBC (0-2) /HPF Urine WBC (0-5) /HPF Ur Squamous Epith Cells (0-2) /HPF Urine Bacteria (None Seen) Hyaline Casts (0-2) /LPF Urine Test (NEGATIVE) Radiology Impression Discussion of test interpretation with radiology: I have reviewed the radiologist's reading. Radiologist Impression: EXAMINATION: CT ABDOMEN AND PELVIS WITHOUT CONTRAST? CLINICAL INFORMATION: Back and right flank pain? COMPARISON: None available. TECHNIQUE: Multidetector volumetric imaging was performed from the superior aspect of the liver through the pubic symphysis. Sagittal and coronal reformatted images were obtained on the technologist's workstation.? This CT examination was performed using dose optimization techniques as appropriate, variously including the following: *Automated exposure control *Adjustment of mA and/or kV according to patient size (this includes techniques or standardized protocols for targeted exams where dose is matched to indication/reason for exam; i.e. extremities or head) *Use of iterative reconstruction technique DLP: 888 mGy-cm FINDINGS: [employer] WORKER: Mild fecal retention. Nonobstructive bowel pattern. LUNG BASES: The visualized lung bases are unremarkable.? LIVER, GALLBLADDER, AND BILIARY TREE: The liver is normal in size, shape, and attenuation. No focal hepatic lesion or biliary ductal dilatation is present. The gallbladder is unremarkable with no evidence of radiopaque gallstones, gallbladder wall thickening, or obvious pericholecystic inflammatory changes.? PANCREAS: Unremarkable.? SPLEEN: Unremarkable. Splenule. ADRENAL GLANDS: Unremarkable.? KIDNEYS AND URETERS: The kidneys are normal in size, shape, and attenuation. No hydronephrosis, hydroureter, or calculi seen. No perinephric stranding. ? BLADDER: Unremarkable.? GASTROINTESTINAL TRACT: Stomach is decompressed. Nonobstructive bowel pattern. Unremarkable appendix. Mild fecal retention. ABDOMINAL WALL: Large rectus diastasis with protrusion of the mesenteric fat. Small umbilical hernia with surrounding stranding. LYMPH NODES: Normal. VASCULAR: Unremarkable. PELVIC VISCERA: Unremarkable. Phleboliths. OSSEOUS STRUCTURES: Unremarkable.? CT/CT abdomen pelvis wo IV con IMPRESSION: No acute intra-abdominal or pelvic pathology. ? Fleischner guidelines were followed. Dictated By: Radhika Julien MD Discharge Plan Discharge Clinical Impression: Strain of lumbar region Patient Disposition: Home, Self-Care Instructions: Back Pain (ED) Additional Instructions: Your CT scan was normal today. Her symptoms are likely due to a back spasm. Your blood pressure was very high today. Having an elevated blood pressure can lead to very serious consequences if not treated, these consequences include stroke, heart attack, and even . It is critical that you treat your hypertension taking your medication every day. Please take prescribed medication as directed. Please be advised that muscle relaxants can cause drowsiness, do not drink alcohol or drive while taking this medication. Please follow-up with your primary care physician regarding this visit. If any new or worsening symptoms occur including but not limited to chest pain, shortness breath, worsening back pain, loss of bowel or bladder control, please return for re-evaluation. Prescriptions: New amlodipine 5 mg tablet 5 mg PO DAILY 30 Days Qty: 30 0RF prednisone 20 mg tablet 40 mg PO DAILY 5 Days Qty: 10 0RF cyclobenzaprine 5 mg tablet 5 mg PO TID PRN (Reason: muscle spasm) Qty: 14 0RF acetaminophen [Tylenol] 325 mg capsule 650 mg PO QID PRN (Reason: pain) Qty: 30 0RF No Action ondansetron 4 mg tablet,disintegrating 4 mg PO Q8H PRN (Reason: nausea and vomiting) Qty: 20 0RF lisinopril 5 mg tablet 1 tab PO DAILY oxycodone 5 mg tablet 5 mg PO Q6H PRN (Reason: pain) Qty: 10 0RF cyclobenzaprine 5 mg tablet 5 mg PO TID PRN (Reason: muscle spasm) Qty: 14 0RF ibuprofen 600 mg tablet 600 mg PO Q6H PRN (Reason: pain) Qty: 45 0RF prednisone 20 mg tablet 40 mg PO DAILY 3 Days Qty: 6 0RF lisinopril 10 mg tablet 10 mg PO DAILY Qty: 10 0RF amoxicillin-pot clavulanate [Augmentin] 500-125 mg tablet 1 tab PO Q8H Qty: 30 0RF Interventions: ED Discharge Assessment Last Done: 01/31/23 14:04 Discharge Date/Time: 01/31/23 14:04
[2023-01-31] MEDS: Ketorolac Tromethamine 30 MG/ML VIAL IM (09:39)
[2023-01-31 09:41] LABS: Appearance Urine Clear; Color Urine Yellow; Glucose Urine UA Negative (Negative); Leukocyte Esterase Urine Negative (Negative); Nitrite Urine Negative (Negative); Specific Gravity - Urine 1.015 (1.005-1.025); UMIC TRIGGER UACC YES; UPreg QC Valid YES; Urine Blood Negative (Negative); Urine Ketones Negative (Negative); Urine Pregnancy NEGATIVE (NEGATIVE); Urine Protein 30 (1+) mg/dL (Neg-Trace)
[2023-01-31 09:43] LABS: Bacteria Urine Trace (None Seen); Hyaline Casts Urine 0-2 /LPF (0-2); RBC Urine 0-2 /HPF (0-2); WBC Urine 0-5 /HPF (0-5)
[2023-01-31 11:11] VITALS: BP 196/120
[2023-01-31] MEDS: amLODIPine Besylate 2.5 MG TABLET PO (11:36)
[2023-01-31 12:55] LABS: MANUAL DIFF FLAG NO
[2023-01-31 12:56] LABS: Basophils Absolute Auto 0.1 X10*3/uL (0.0-0.2); Basophils Percent Auto 0.6 % (0-2); Eosinophils Absolute Auto 0.3 X10*3/uL (0.0-0.4); Eosinophils Percent Auto 2.7 % (0-4); Hemoglobin 12.3 g/dl (12.0-16.0); Imm Gran Abs Auto 0.04 X10*3/uL (0.00-0.03); Imm Gran Pct Auto 0.3 % (0.0-0.4); Lymphocytes Absolute Auto 2.3 X10*3/uL (1.2-4.9); Lymphocytes Percent Auto 18.1 % (20-40); Mean Corpuscular HGB Conc 33.2 g/dl (31.0-35.0); Mean Corpuscular Hemoglobin 29.3 pg (27.0-33.0); Mean Corpuscular Volume 88.1 fL (80.0-98.0); Mean Platelet Volume 9.2 fL (9.4-12.3); Monocytes Absolute Auto 0.8 X10*3/uL (0.1-1.2); Monocytes Percent Auto 6.5 % (2-11); Neutrophils Percent Auto 71.8 % (45-73); Platelet Count 261 X10*3/uL (160-400); Red Cell Distribution Width 12.9 % (11.0-16.0); White Blood Count 12.5 X10*3/uL (4.8-10.8)
[2023-01-31] MEDS: amLODIPine Besylate 5 MG TABLET PO (13:03)
[2023-01-31 13:17] LABS: Alanine Aminotransferase 14 U/L (0-31); Albumin Level 3.8 g/dL (3.5-5.0); Alkaline Phosphatase 92 U/L (39-117); Anion Gap 11 (12-20); Aspartate Amino Transferase 16 U/L (5-31); Bilirubin Direct 0.2 mg/dL (0.0-0.5); Bilirubin Total 0.6 mg/dL (0.0-1.0); Blood Urea Nitrogen 10 mg/dL (9-16); Calcium 10.2 mg/dL (8.4-10.2); Carbon Dioxide 26 mmol/L (22-29); Chloride 104 mmol/L (96-108); Creatinine Clr Calc Pharmacy 110.1; Estimated Glomerular Filt Rate > 60; Glucose Random 107 mg/dL (60-115); Magnesium 1.9 mg/dL (1.6-2.6); Sodium 137 mmol/L (135-145); Total Protein 7.2 g/dL (6.5-8.0)
[2023-01-31 13:59] VITALS: BP 182/90
== END 2023-01-31 14:04 | disposition home or self-care (01) ==
PROVIDERS: Physician Assistant Medical; Emergency Provider Emergency Medicine; PCP Internal Medicine
DX: M54.50 Low back pain, unspecified (principal); I10 Essential (primary) hypertension; Z79.899 Other long term (current) drug therapy
CPT/HCPCS: 36415; 74176; 80048; 80076; 81001; 81025; 83735; 85025; 96372; 99283; 99284; J1885

== ENCOUNTER 2023-09-18 11:41 | Outpatient (REF) | payer MEDICAID, SELFPAY ==
[2023-09-18 11:52] LABS: MANUAL DIFF FLAG NO
[2023-09-18 12:37] LABS: Basophils Absolute Auto 0.1 X10*3/uL (0.0-0.2); Basophils Percent Auto 0.7 % (0-2); Eosinophils Absolute Auto 0.3 X10*3/uL (0.0-0.4); Eosinophils Percent Auto 2.9 % (0-4); Hematocrit 35.3 % (37.0-47.0); Hemoglobin 11.7 g/dl (12.0-16.0); Imm Gran Abs Auto 0.05 X10*3/uL (0.00-0.03); Imm Gran Pct Auto 0.5 % (0.0-0.4); Lymphocytes Percent Auto 18.8 % (20-40); Mean Corpuscular HGB Conc 33.1 g/dl (31.0-35.0); Mean Corpuscular Hemoglobin 30.2 pg (27.0-33.0); Mean Corpuscular Volume 91.2 fL (80.0-98.0); Mean Platelet Volume 10.1 fL (9.4-12.3); Monocytes Absolute Auto 0.5 X10*3/uL (0.1-1.2); Monocytes Percent Auto 5.1 % (2-11); Neutrophils Absolute Auto 7.5 x10*3/uL (2.0-8.3); Platelet Count 286 X10*3/uL (160-400); Red Blood Count 3.87 X10*6/uL (4.20-5.50); Red Cell Distribution Width 12.1 % (11.0-16.0); White Blood Count 10.4 X10*3/uL (4.8-10.8)
[2023-09-18 13:05] LABS: Alanine Aminotransferase 13 U/L (0-31); Albumin Level 3.7 g/dL (3.5-5.0); Alkaline Phosphatase 97 U/L (39-117); Anion Gap 11 (12-20); Aspartate Amino Transferase 13 U/L (5-31); Bilirubin Total 0.4 mg/dL (0.0-1.0); Blood Urea Nitrogen 12 mg/dL (9-16); Calcium 9.9 mg/dL (8.4-10.2); Carbon Dioxide 26 mmol/L (22-29); Chloride 106 mmol/L (96-108); Cholesterol 125 mg/dL (<200); Estimated Glomerular Filt Rate > 60; Glucose Random 169 mg/dL (60-115); Potassium 3.8 mmol/L (3.3-5.1); Sodium 139 mmol/L (135-145)
[2023-09-18 13:26] LABS: Free T4 (Free Thyroxine) 0.95 ng/dL (0.71-1.85); Thyroid Stimulating Hormone 0.65 uIU/mL (0.32-4.0)
== END 2023-09-18 11:42 | disposition home or self-care (01) ==
LOC: HO.LAB 11:41
PROVIDERS: PCP Internal Medicine; Visit Provider Internal Medicine
DX: I10 Essential (primary) hypertension (principal); R51.9 Headache, unspecified
CPT/HCPCS: 36415; 80053; 82465; 84439; 84443; 85025

== ENCOUNTER → 2023-11-15 12:47 | Outpatient (REF) | payer MEDICAID, SELFPAY ==
--- NOTE | 2023-11-15 12:51 | CA_ITS ---
Transthoracic Echocardiogram Patient (Last, First, Middle): Batsheva Gillespie M Gender: Female Date of : 1990 Age: 33 Procedure Date: 11/15/2023 Procedure Type: Transthoracic Echocardiogram Location: OP Height: 154.94 cm Weight: 102.06 kg BSA: 1.99 m2 Heart Rate: 70 bpm BP: 168 / 92 mmHg Residential Housekeeper: SB Referring MD: Chuck Her MD Symptoms: R/O LEFT VENTRICULAR HYPERTROPHY Study Quality: Adequate ECG Rhythm: Sinus Conclusions: - The left ventricular systolic function is normal. The visually estimated ejection fraction is between 55-60%. - The basal inferior and basal inferolateral segments are akinetic. - No obvious valvular pathology seen on this study. Findings Left Ventricle Normal left ventricular cavity size. There is mildly increased left ventricular wall thickness. The left ventricular systolic function is normal. The visually estimated ejection fraction is between 55-60%. There is evidence of regional wall motion abnormalities. Evidence suggests grade I (mild) diastolic dysfunction. LV peak GLS -13.1%. Wall Motion Rest Echo Findings The basal inferior and basal inferolateral segments are akinetic. Right Ventricle Normal right ventricular cavity size and systolic function. Atria Both atria are normal in size. Aortic Valve The aortic valve was not well visualized. There is no aortic valve stenosis. There is no aortic valve regurgitation. Mitral Valve There is mild mitral annular calcification. There is no mitral valve regurgitation. There is no mitral valve stenosis. Pulmonic Valve The pulmonic valve is likely normal. Tricuspid Valve There is no tricuspid valve regurgitation. Tricuspid regurgitation envelope is inadequate for calculation of right ventricular systolic pressure. Great Vessels The asc aorta and aortic arch are normal in size. Venous The inferior vena cava is normal in size. Pericardium/Pleural There is no evidence of pericardial effusion. Prior Study Comparison No prior study available for comparison. Recommendations, Care & Conclusions No obvious valvular pathology seen on this study. Measurements 2D Linear Measurements IVSd: 1.24 0.6-0.9/0.6-1.0 cm LVIDd: 5.30 3.9-5.3/4.2-5.9 cm LVIDd Index: 2.66 2.4-3.2/2.2-3.1 cm/m2 LVIDs: 3.19 2.0-3.6 cm LVPWd: 1.14 0.7-1.1 cm LA Diam: 3.90 2.7-3.8/3.0-4.0 cm LAIDs Index: 1.96 1.5-2.3 cm/m2 LV Mass: 316.27 67-162/88-224 g LV Mass Index: 158.93 43-95/49-115 g/m2 LVOT Diam: 2.20 3.0+(-)1.3 cm 2D Systolic Function EF 4C: 60.50 >55% EF 2C: 44.00 >55% EF BiP: 53.60 >55% Mitral Valve MV Pk E: 0.48 MV PK A: 0.72 MV Decel Time: 279.00 E/A: 0.70 E'Lateral: 5.77 E'Medial: 3.26 E/E' Med: 14.60 E/E' Lat: 8.20 PHT: 82.00 MVA PHT: 2.68 Decel [place]: 1.71 Aortic Valve AoV Pk Cristian: 1.17 AoV Pk Grad: 5.00 ARIEL: 3.18 LVOT LVOT Pk Cristian: 0.98 LVOT Mn Cristian: 0.67 LVOT VTI: 0.16 LVOT Pk Grad: 4.00 LVOT Mn Grad: 2.00 LVOT Diam: 2.20 LVOT Area: 3.80 Diastolic Function MV Pk E: 0.48 MV Pk A: 0.72 E/A: 0.70 E'Medial: 3.26 E/E' Med: 14.60 E' Laterial: 5.77 E/E' Lat: 8.20 Right Ventricle TAPSE (mm): 25.40 TVS' Cristian: 12.50 Tricuspid Valve RA Press: 3.00 Great Vessels Aorta Sinus of Valsalva: 3.00 2.0-3.5 cm Ao Asc: 3.30 2.1-3.4 cm Ao Arch: 2.80 Pulmonary Valve PV Pk Cristian: 0.88 Peak PV Grad: 3.00 Updated in Other Vendor System with Status of Final Sanford Rachel MD electronically signed on 11/16/2023 11:47:38 AM with status of Final
== END ==
LOC: HO.CARD 12:47
PROVIDERS: PCP Internal Medicine; Visit Provider Internal Medicine
DX: I10 Essential (primary) hypertension (principal)
CPT/HCPCS: 93306; 93356

== ENCOUNTER → 2023-11-15 12:51 | Outpatient (BNV) | payer MEDICAID, SELFPAY | PROVIDERS: PCP Internal Medicine; Visit Provider Internal Medicine | DX: I34.81 Nonrheumatic mitral (valve) annulus calcification (principal) | CPT/HCPCS: 93306; 93356 ==

== ENCOUNTER 2023-12-04 09:57 | Inpatient (IN) | payer MEDICAID, SELFPAY ==
[2023-12-04] VITALS (21 sets, daily range): BP systolic 129–211; BP diastolic 71–132; PULSE 54–100; RESP 16–23; TEMP 36.4–37.7; O2SAT 90–99; BMI 45.8
--- NOTE | ~2023-12-04 | CT_ITS ---
EXAMINATION: CT ANGIOGRAM HEAD CT ANGIOGRAM NECK CLINICAL INFORMATION: Severe headache. Dizziness. Hypertension. Dissection. COMPARISON: None available. TECHNIQUE: Initial noncontrast calculus teacher imaging of the head and neck was performed. Comparison is made with noncontrast head CT from earlier today. Test bolus sequences followed by intravenous administration 65 mL of Omnipaque 350. Helical imaging was performed in the axial plane from the aortic arch to the skull vertex. Delayed postcontrast imaging of the head was also performed. The data was processed at the soil technologist's workstation for generation of MIP sequences. Angled MIPs and volume rendered reformatted images were also generated at an offline 3D workstation. Stenoses are assessed in accordance with NASCET criteria unless otherwise indicated. This CT examination was performed using dose optimization techniques as appropriate, variously including the following: *Automated exposure control. *Adjustment of mA and/or kV according to patient size (this includes techniques or standardized protocols for targeted exams where dose is matched to indication/reason for exam; i.e. extremities or head). *Use of iterative reconstruction technique. DLP: 1391 mGy-cm FINDINGS: CT Head: There is no evidence of acute intracranial hemorrhage or edematous territorial infarction. Bassett-white matter differentiation is preserved. There is no abnormal attenuation within the brain parenchyma. The ventricles are normal in morphology and size. No evidence for obstructive hydrocephalus. No abnormal mass effect or midline shift. No extra-axial fluid collections. No pathologic intra-axial enhancement or regional oligemia. No acute soft tissue or osseous abnormalities. Mild mucosal thickening of the paranasal sinuses. Moderate rightward nasal septal deviation with spurring. The mastoid air cells and middle ear cavities are clear. CT Neck: The thyroid gland and remaining cervical soft tissues are within normal limits. No significant abnormalities of the cervical spine. CT Upper Chest: The visualized lung apices and upper mediastinum are within normal limits. Neck CTA: Aortic Arch: Normal contour and caliber. Classic 3 vessel branching pattern of the aortic arch. Great Vessel Origins: No significant stenosis of the branch origins. Right Common Carotid Artery: No focal stenosis or occlusion. Cervical Right Internal Carotid Artery: Normal opacification without focal stenosis or occlusion. Left Common Carotid Artery: No focal stenosis or occlusion. Cervical Left Internal Carotid Artery: Normal opacification without focal stenosis or occlusion. Cervical Right Vertebral Artery: Co-dominant. No focal stenosis or occlusion. Cervical Left Vertebral Artery: Co-dominant. No focal stenosis or occlusion. Brain CTA: Intracranial Internal Carotid Arteries: No focal stenosis or occlusion. Right Anterior Cerebral Artery: Normal A1 segment. Normal opacification of the distal [place]DELL segments. Left Anterior Cerebral Artery: Normal A1 segment. Normal opacification of the distal [place]DELL segments. Anterior Communicating Artery: Normal. Right Middle Cerebral Artery: Normal M1 segment of the MCA without focal stenosis or occlusion. Normal arborization of the distal segments. Left Middle Cerebral Artery: Normal M1 segment of the MCA without focal stenosis or occlusion. Normal arborization of the distal segments. Right Vertebral Artery: Normal V4 segment. Normal opacification of the proximal segments of the posterior inferior cerebellar artery. Left Vertebral Artery: Normal V4 segment. Normal opacification of the proximal segments of the posterior inferior cerebellar artery. Basilar Artery: Normal without focal stenosis or occlusion. Normal appearance of the proximal superior cerebellar arteries. Right Posterior Cerebral Artery: Normal P1 segment. Normal opacification of the distal [employer]OR [employer]AR [employer]OP segments. Left Posterior Cerebral Artery: Normal P1 segment. Normal opacification of the distal [employer]OP segments. Normal opacification of the superior sagittal, straight, transverse, and sigmoid sinuses. CT/CT angio head neck stroke IMPRESSION: 1. No evidence of acute intracranial hemorrhage or edematous territorial infarction. 2. CTA of the head and neck without proximal occlusion or flow-limiting stenosis.
--- NOTE | ~2023-12-04 | FL_ITS ---
FLUOROSCOPIC LUMBAR PUNCTURE Indication: Concern for meningitis Risks and benefits and possible complications were discussed with the patient and the consent form was signed. Patient was placed prone on the fluoroscopy table. The back was prepped and draped in routine sterile fashion. Betadine was used as a skin antiseptic. Utilizing fluoroscopic guidance, the L2-3 interlaminar space was accessed with a 22 gague quinkie spinal needle and clear CSF fluid obtained. Opening pressure was 19 cm H20. 8 cc of fluid was sent for analysis. The needle was removed without immediate complications. Total fluoroscopy time: 0.8 min FL/FL guided lumbar puncture LP Impression: Successful fluoroscopic lumbar puncture This procedure was performed by Jesús Lopez PA-C and supervised by Dr. Alejandro.
--- NOTE | ~2023-12-04 | CT_ITS ---
EXAMINATION: CT HEAD WITHOUT CONTRAST CLINICAL INFORMATION: Headache. Hypertension. COMPARISON: No recent comparison. TECHNIQUE: Contiguous axial imaging was performed from the skull base to vertex without intravenous administration of contrast. This CT examination was performed using dose optimization techniques as appropriate, variously including the following: *Automated exposure control *Adjustment of mA and/or kV according to patient size (this includes techniques or standardized protocols for targeted exams where dose is matched to indication/reason for exam; i.e. extremities or head) *Use of iterative reconstruction technique DLP: 676 mGy-cm FINDINGS: The brain parenchyma has normal attenuation. The eldridge-white matter differentiation is well preserved. No evidence of an acute major vascular territory infarction. No intracranial hemorrhage, extra-axial fluid collection, focal mass effect or midline shift. The ventricles have normal size and configuration; no hydrocephalus. The brainstem and cerebellum have a normal appearance. The cerebellar tonsils are in normal position. The calvarium is intact. The visualized paranasal sinuses, mastoid air cells and middle ear cavities are well aerated. The orbits and globes are unremarkable. The temporomandibular joints are normal. CT/CT head/brain wo IV con IMPRESSION: No acute intracranial pathology.
--- NOTE | 2023-12-04 10:53 | ECG_ITS ---
Test Reason : HTN Blood Pressure : / mmHG Vent. Rate : 060 BPM Atrial Rate : 060 BPM P-R Int : 130 ms QRS Dur : 104 ms QT Int : 450 ms P-R-T Axes : -25 -18 -20 degrees QTc Int : 450 ms Sinus rhythm with Premature ventricular complexes Moderate voltage criteria for LVH, may be normal variant ( R in aVL , Quinten product ) Possible Lateral infarct , age undetermined Abnormal ECG No previous ECGs available Referred By: Candida Emery Electronically Signed By:MORELIA CUNHA MD
--- NOTE | 2023-12-04 11:26 | ED.HA ---
HPI - Headache General Chief Complaint: Headache Stated Complaint: dizzy Time Seen by Provider: 12/04/23 10:31 Source: patient and old records reviewed Mode of arrival: ambulatory Limitations: other (poor historian) History of Present Illness ED Provider: PHILIPP ANDERSON Narrative: 33 yo female with PMH of obesity, HTN not on meds for 1+ year, abscess here with 2 hours of abrupt onset chills, headaches, not feeling well, dizzy, body aches. No travel, sick contacts had to leave work. BP is high but she states when she checks it at home both numbers are high like 180/100s. She states her symptoms started a few hours but cannot give me an exact timeline of when symptoms started. She is very vague. She has had headaches like this before but not dizzy. MD elicited complaint: headache Onset (ago): hour(s) (2) Onset description: suddenly Location: frontal Severity: moderate Quality & Timing: throbbing Exacerbating factors: movement of head/neck, light and noise Relieving factors: nothing Context: occurred at rest Associated symptoms: nausea, vomiting, photophobia, weakness and other (chills body aches doesn't feel well asking for warm blankets) Treatments prior to arrival: none Related Data Home Medications ?Medication ?Instructions ?Recorded ?Confirmed lisinopril 5 mg tablet 1 tab PO DAILY 08/13/20 08/25/20 Previous Rx's ?Medication ?Instructions ?Recorded ondansetron 4 mg disintegrating 4 mg PO Q8H PRN nausea and 06/01/20 tablet vomiting #20 tabs oxycodone 5 mg tablet 5 mg PO Q6H PRN pain #10 tabs 08/13/20 amoxicillin 500 mg-potassium 1 tab PO Q8H #30 tabs 08/25/20 clavulanate 125 mg tablet (Augmentin) cyclobenzaprine 5 mg tablet 5 mg PO TID PRN muscle spasm #14 12/06/22 tabs ibuprofen 600 mg tablet 600 mg PO Q6H PRN pain #45 tabs 12/06/22 lisinopril 10 mg tablet 10 mg PO DAILY #10 tabs 12/06/22 prednisone 20 mg tablet 40 mg (2 x 20 mg) PO DAILY 3 days 12/06/22 #6 tabs acetaminophen 325 mg capsule 650 mg (2 x 325 mg) PO QID PRN 01/31/23 (Tylenol) pain #30 caps amlodipine 5 mg tablet 5 mg PO DAILY 30 days #30 tabs 01/31/23 cyclobenzaprine 5 mg tablet 5 mg PO TID PRN muscle spasm #14 01/31/23 tabs prednisone 20 mg tablet 40 mg (2 x 20 mg) PO DAILY 5 days 01/31/23 #10 tabs Allergies Allergy/AdvReac Type Severity Reaction Status Date / Time No Known Allergies Allergy Verified 12/04/23 10:19 Review of Systems Review of Systems: Constitutional : No Fever, pos Chills, pos Fatigue ENT/Mouth : No sore throat, No Rhinorrhea Eyes: No Eye Pain, No Swelling, No Redness Cardiovascular : No Chest Pain, No SOB, No Dyspnea on Exertion Respiratory : No Cough, No Sputum Gastrointestinal : pos Nausea, pos Vomiting, No Diarrhea, No abdominal Pain Genitourinary : No Dysuria, No Urinary Frequency, No Hematuria, Musculoskeletal : No joint pain, pos Myalgias, No Joint Swelling Skin : No Skin Lesions, No rash Neuro : pos Weakness, No Numbness, No Dizziness, positive Headache Psych : No Anxiety/Panic, No Depression All other systems reviewed and are negative [facility] Past Medical History Attestation statement: The following information was validated with the patient. Source: old records reviewed Medical History Hypertension Surgical History History of facial surgery H/O tubal ligation History of bunionectomy Family History Family History Maternal Grandmother History of breast cancer Social History Social History (Updated 12/04/23 @ 11:31 by Candida Emery DO) Patient Tobacco Use Status: Current everyday Tobacco user Cigarettes Per Day: 8 Advance Directives: No Advance Directives Information Provided: No Physical Exam Vital Signs: Vital Signs: Last Vital Signs Temp 99.0 F 12/04/23 16:04 Pulse 68 12/04/23 16:07 Resp 16 12/04/23 16:04 BP 211/108 H 12/04/23 16:07 Pulse Ox 99 12/04/23 16:04 O2 Del Method Room Air 12/04/23 16:04 BMI result Body Mass Index 45.8 Appearance: Alert. Oriented X3. very anxious will not answer questions at times flat affect mild acute distress. asking for a warm blanket Eyes: Pupils equal, round and reactive to light. ENT: Pharynx normal. normal TMs Neck: Normal inspection. Neck supple. no meningeal signs CVS: Normal heart rate and rhythm. Pulses normal. Respiratory: No respiratory distress. Breath sounds normal. Abdomen: Soft and nontender. Skin: Skin warm and dry. Normal skin color. Extremities: No lower extremity edema. Neuro: Oriented X 3. No motor deficit. No sensory deficit. steady gait to the bathroom NIH Stroke Scale Internal: Initial- Upon Arrival Level of Consciousness: Alert Level of Consciousness Questions: Answers both questions correctly Level of Consciousness Commands: Performs both tasks correctly Best Gaze: Normal Visual: No visual loss Facial Palsy: Normal Motor Arm (Right): No drift Motor Leg (Right): No drift Motor Leg (Left): No drift Limb Ataxia: Absent Sensory: Normal Best Language: No aphasia Dysarthia: Normal Extinction and Inattention: No abnormality Course Course Course Narrative: now states that she gets headaches like this in the past and has migraines all the time. she notes they present like this she is feeling somewhat better - I am going to order reglan benadryl as well Reevaluation(s) Reevaluation #1: BP goes up and down but is coming down she still has dizziness at this time I am going to order STAT CTA angio given BP and dizziness along with pain to rule out dissection BP continues to go up will give low dose labetalol and reassess. Reevaluation #2: will obtain LP at this time no edema on CT head repeat labetalol some improvement has WBC count and temp of [address] sign out to Dr. Puckett after LP to follow up on results IV hydralazine ordered as well after LP Reevaluation #3: I attempted to do LP and she states she has chronic severe back pain and she could not tolerate me palpating her back she kept yelling out fuck then moved away and would not tolerate puncture and repeat assessments of alignment I did not feel safe attempting LP as she could not even tolerate repeat landmark assessments to find spinous process. I did attempt x 1 stick but then she moved and instead I am going to start on empiric meds and Dr. Puckett is going to monitor after hydralazine and admit. Medications Administered Discontinued Medications Generic Name Dose Route Start Last Admin Trade Name Thomas PRN Reason Stop Dose Admin Amlodipine Besylate 5 mg 12/04/23 11:59 12/04/23 12:28 Amlodipine Besylate 5 Mg Tablet PO 12/04/23 12:00 5 mg ONCE ONE Administration Protocol Diphenhydramine HCl 25 mg 12/04/23 12:01 12/04/23 12:28 Diphenhydramine Hcl 50 Mg/Ml Vial IVPUSH 12/04/23 12:02 25 mg ONCE ONE Administration Sodium Chloride 1,000 mls @ 999 mls/hr 12/04/23 11:41 12/04/23 14:29 Ns IV 12/04/23 12:41 Infused .Q1H1M ONE Infusion Iohexol 100 ml 12/04/23 15:01 12/04/23 15:01 Iohexol 350 Mg/Ml 100 Ml Infus..Btl IV 12/04/23 15:02 85 ml ONCE ONE Administration Ketorolac Tromethamine 15 mg 12/04/23 15:42 12/04/23 16:04 Ketorolac Tromethamine 15 Mg/Ml Vial IVPUSH 12/04/23 15:43 15 mg ONCE ONE Administration Labetalol HCl 5 mg 12/04/23 15:20 12/04/23 15:32 Labetalol Hcl 100 Mg/20 Ml Vial IVPUSH 12/04/23 15:21 5 mg ONCE ONE Administration Labetalol HCl 10 mg 12/04/23 16:05 12/04/23 16:07 Labetalol Hcl 100 Mg/20 Ml Vial IVPUSH 12/04/23 16:06 10 mg ONCE ONE Administration Metoclopramide HCl 10 mg 12/04/23 12:01 12/04/23 12:28 Metoclopramide Hcl 10 Mg/2 Ml Vial IVPUSH 12/04/23 12:02 10 mg ONCE ONE Administration Morphine Sulfate 4 mg 12/04/23 10:52 12/04/23 11:37 Morphine Sulfate 4 Mg/Ml Cartridge IVPUSH 12/04/23 10:53 4 mg ONCE ONE Administration Protocol Ondansetron HCl 4 mg 12/04/23 10:52 12/04/23 11:38 Ondansetron Hcl 4 Mg/2 Ml Vial IVPUSH 12/04/23 10:53 4 mg ONCE ONE Administration Medical Decision Making Medical Decision Making [facility] Narrative: 33 yo female with PMH of obesity, HTN not on meds for 1+ year, abscess here c/o not feeling well abrupt onset chills, body aches, headaches n/v that all started together it seem atypical for a HTN crisis but it is possible and she is poor historian. She is vague in history but given BP and headache I can get a CT scan within 3 hours of onset for SAH which would rule out. I have ordered nausea mediactions, pain medications, labs, viral panel. She has no focal deficits on exam. I do not have an exact timeline of when this started she cannot tell me so she is not a candidate for TNK given no timeline as she just states she is not sure and a few hours. Her BP is also out of control this could be PRESS. Differential Diagnosis Differential Diagnoses: The differential diagnosis associated with the presentation includes viral syndrome uncontrolled HTN acute headache ICH - able to get CT scan within 3 hours Admission/Observation Consideration of admission/observation: Escalation of care including admission/observation considered Lab Data [facility] Lab Attestation statement: I reviewed the patient's lab results. 12/04/23 11:24 12/04/23 11:24 Labs: Lab Results 12/04/23 12/04/23 Range/Units 11:24 16:23 WBC 16.0 H (4.8-10.8) X10*3/uL RBC 4.34 (4.20-5.50) X10*6/uL Hgb 13.2 (12.0-16.0) g/dl Hct 39.6 (37.0-47.0) % MCV 91.2 (80.0-98.0) fL MCH 30.4 (27.0-33.0) pg MCHC 33.3 (31.0-35.0) g/dl RDW 12.4 (11.0-16.0) % Plt Count 286 (160-400) X10*3/uL MPV 9.5 (9.4-12.3) fL Immature Gran % (Auto) 0.5 H (0.0-0.4) % Neut % (Auto) 85.6 H (45-73) % Lymph % (Auto) 8.8 L (20-40) % [place] % (Auto) 4.0 (2-11) % Eos % (Auto) 0.7 (0-4) % Baso % (Auto) 0.4 (0-2) % Lymph # (Auto) 1.4 (1.2-4.9) X10*3/uL [place] # (Auto) 0.6 (0.1-1.2) X10*3/uL Eos # (Auto) 0.1 (0.0-0.4) X10*3/uL Baso # (Auto) 0.1 (0.0-0.2) X10*3/uL Abs Immat Gran (auto) 0.08 H (0.00-0.03) X10*3/uL Absolute Neuts (auto) 13.7 H (2.0-8.3) x10*3/uL Absolute Nucleated RBC 0.000 (0.0-0.012) X10*3/uL Nucleated RBC % (auto) 0.0 (0.0-0.2) /100WBC Sodium 140 (135-145) mmol/L Potassium 3.8 (3.3-5.1) mmol/L Chloride 104 (96-108) mmol/L Carbon Dioxide 28 (22-29) mmol/L Anion Gap 12 (12-20) BUN 10 (9-16) mg/dL Creatinine 0.99 (0.5-1.4) mg/dL Estim Creat Clear Calc 91.0 Estimated GFR > 60 Random Glucose 160 H (60-115) mg/dL Calcium 10.5 H D (8.4-10.2) mg/dL Magnesium 1.9 (1.6-2.6) mg/dL Total Bilirubin 0.4 (0.0-1.0) mg/dL Direct Bilirubin 0.2 (0.0-0.5) mg/dL AST 18 (5-31) U/L ALT 15 (0-31) U/L Alkaline Phosphatase 91 (39-117) U/L Troponin I High Sens 8.2 (<3.5-17.0) ng/L Total Protein 7.9 (6.5-8.0) g/dL Albumin 4.2 (3.5-5.0) g/dL Beta HCG, Quant < 2 mIU/mL Urine Color Yellow Urine Appearance Clear Urine pH 7.5 (5.0-9.0) Ur Specific [place] >= 1.030 H (1.005-1.025) Urine Protein Negative (Neg-Trace) mg/dL Urine Glucose (UA) Negative (Negative) mg/dL Urine Ketones Negative (Negative) mg/dL Urine Blood Negative (Negative) Urine Nitrite Negative (Negative) Ur Leukocyte Esterase Negative (Negative) Influenza Type A (PCR) NEGATIVE (Negative) Influenza Type B (PCR) NEGATIVE (Negative) RSV RNA Qual (PCR) NEGATIVE (Negative) SARS-CoV-2 RNA (RT-PCR) NEGATIVE (Negative) Independent Interpretation I performed an independent interpretation of an: EKG and CT Scan (no ICH) Interpretation: Rate: 60 Rhythm: NSR [place]: left, LVH Normal P waves. Normal SIMONE. Normal QRS complex. ST T wave : no SVETA, normal qTC: 450 prior studies: no acute ischemia The study has been interpreted contemporaneously by me. . Radiology Impression Discussion of test interpretation with radiology: I discussed test interpretation with the radiologist and I have reviewed the radiologist's reading. Radiologist Impression: 334pm call from Radiology CTA no LVO no vascular dissection External Record Review External record reviewed: Inpatient record Critical Care Time Critical Care Time Critical Care Time: Yes Total Critical Care Time: 60 Attestation: repeat IV BP medications, repeat assessments, IV morphine for pain I attest to this time spent taking care of the patient Discharge Plan Discharge Clinical Impression: Hypertension, uncontrolled, Dizziness, Encephalopathy, hypertensive Acute headache Qualifiers: Headache type: unspecified Intractability: not intractable Qualified Code(s): R51.9 - Headache, unspecified Patient Disposition: Still a Patient Prescriptions: No Action ondansetron 4 mg tablet,disintegrating 4 mg PO Q8H PRN (Reason: nausea and vomiting) Qty: 20 0RF lisinopril 5 mg tablet 1 tab PO DAILY oxycodone 5 mg tablet 5 mg PO Q6H PRN (Reason: pain) Qty: 10 0RF cyclobenzaprine 5 mg tablet 5 mg PO TID PRN (Reason: muscle spasm) Qty: 14 0RF ibuprofen 600 mg tablet 600 mg PO Q6H PRN (Reason: pain) Qty: 45 0RF prednisone 20 mg tablet 40 mg PO DAILY 3 Days Qty: 6 0RF lisinopril 10 mg tablet 10 mg PO DAILY Qty: 10 0RF amlodipine 5 mg tablet 5 mg PO DAILY 30 Days Qty: 30 0RF prednisone 20 mg tablet 40 mg PO DAILY 5 Days Qty: 10 0RF cyclobenzaprine 5 mg tablet 5 mg PO TID PRN (Reason: muscle spasm) Qty: 14 0RF acetaminophen [Tylenol] 325 mg capsule 650 mg PO QID PRN (Reason: pain) Qty: 30 0RF amoxicillin-pot clavulanate [Augmentin] 500-125 mg tablet 1 tab PO Q8H Qty: 30 0RF Print Language: Macedonian
[2023-12-04 11:31] LABS: MANUAL DIFF FLAG NO
[2023-12-04 11:36] LABS: Basophils Absolute Auto 0.1 X10*3/uL (0.0-0.2); Basophils Percent Auto 0.4 % (0-2); Eosinophils Absolute Auto 0.1 X10*3/uL (0.0-0.4); Eosinophils Percent Auto 0.7 % (0-4); Hematocrit 39.6 % (37.0-47.0); Hemoglobin 13.2 g/dl (12.0-16.0); Imm Gran Abs Auto 0.08 X10*3/uL (0.00-0.03); Imm Gran Pct Auto 0.5 % (0.0-0.4); Lymphocytes Absolute Auto 1.4 X10*3/uL (1.2-4.9); Lymphocytes Percent Auto 8.8 % (20-40); Mean Corpuscular HGB Conc 33.3 g/dl (31.0-35.0); Mean Corpuscular Hemoglobin 30.4 pg (27.0-33.0); Mean Corpuscular Volume 91.2 fL (80.0-98.0); Mean Platelet Volume 9.5 fL (9.4-12.3); Monocytes Absolute Auto 0.6 X10*3/uL (0.1-1.2); Neutrophils Absolute Auto 13.7 x10*3/uL (2.0-8.3); Neutrophils Percent Auto 85.6 % (45-73); Platelet Count 286 X10*3/uL (160-400); Red Blood Count 4.34 X10*6/uL (4.20-5.50); Red Cell Distribution Width 12.4 % (11.0-16.0)
[2023-12-04] MEDS: Morphine Sulfate 4 MG/ML CARTRIDGE IVPUSH (11:37)
[2023-12-04] MEDS: ondansetron HCL 4 MG/2 ML VIAL IVPUSH (11:38)
[2023-12-04] MEDS: 0.9 % Sodium Chloride 1,000 ML 999 ML IV (11:54)
[2023-12-04 12:00] LABS: Troponin-I High Sensitivity 8.2 ng/L (<3.5-17.0)
[2023-12-04 12:02] LABS: Alanine Aminotransferase 15 U/L (0-31); Albumin Level 4.2 g/dL (3.5-5.0); Alkaline Phosphatase 91 U/L (39-117); Anion Gap 12 (12-20); Aspartate Amino Transferase 18 U/L (5-31); Bilirubin Direct 0.2 mg/dL (0.0-0.5); Bilirubin Total 0.4 mg/dL (0.0-1.0); Blood Urea Nitrogen 10 mg/dL (9-16); Calcium 10.5 mg/dL (8.4-10.2); Carbon Dioxide 28 mmol/L (22-29); Chloride 104 mmol/L (96-108); Estimated Glomerular Filt Rate > 60; Glucose Random 160 mg/dL (60-115); HCG Quantitative < 2 mIU/mL; Magnesium 1.9 mg/dL (1.6-2.6); Potassium 3.8 mmol/L (3.3-5.1); Sodium 140 mmol/L (135-145); Total Protein 7.9 g/dL (6.5-8.0)
[2023-12-04 12:20] LABS: Influenza A PCR NEGATIVE (Negative); Influenza B PCR NEGATIVE (Negative); Resp Syncy Virus RNA Qual PCR NEGATIVE (Negative); SARS COV2 PCR INHOUSE NEGATIVE (Negative)
[2023-12-04] MEDS: diphenhydrAMINE HCL 50 MG/ML VIAL 25 MG IVPUSH (12:28)
[2023-12-04] MEDS: amLODIPine Besylate 5 MG TABLET PO (12:28)
[2023-12-04] MEDS: Metoclopramide HCl 10 MG/2 ML VIAL IVPUSH (12:28)
--- NOTE | 2023-12-04 14:49 | PC.NURSE ---
Addendum entered by Tammy Cabello 12/04/23 14:51: patient also endorsing dizziness at this time. off at ct scan Original Note: patient continues to be hypertensive w/ headache - endorses headache promptly falling back asleep. provider and this RN at bedside, patient falling asleep while checking blood pressure. unable to provide urine sample, has been ambulating independently to bathroom - drops urine sample cup in toilet. will provide hat for urine sample.
[2023-12-04] MEDS: iohexoL 350 MG/ML 100 ML INFUS..BTL IV (15:01)
[2023-12-04] MEDS: Labetalol HCL 100 MG/20 ML VIAL IVPUSH (15:32)
[2023-12-04] MEDS: Ketorolac Tromethamine 15 MG/ML VIAL IVPUSH ×2 (16:04→21:23)
[2023-12-04] MEDS: Labetalol HCL 100 MG/20 ML VIAL 10 MG IVPUSH (16:07)
[2023-12-04 16:40] LABS: Appearance Urine Clear; Color Urine Yellow; Glucose Urine UA Negative (Negative); Leukocyte Esterase Urine Negative (Negative); Nitrite Urine Negative (Negative); PH 7.5 (5.0-9.0); Specific Gravity - Urine >= 1.030 (1.005-1.025); Urine Blood Negative (Negative); Urine Ketones Negative (Negative); Urine Protein Negative (Neg-Trace)
[2023-12-04] MEDS: Acetaminophen 325 MG TABLET 650 MG PO ×2 (17:03→21:23)
[2023-12-04] MEDS: hydrALAZINE HCl 20 MG/ML VIAL 10 MG IVPUSH (17:03)
[2023-12-04 17:07] LABS: Amphetamine Screen Urine Not Detected (Not Detect); Barbiturates, Urine Not Detected (Not Detect); Benzodiazepines Screen Urine Not Detected (Not Detect); Buprenorphine Scr Not Detected (Not Detect); Cannabinoid Screen Urine POSITIVE (Not Detect); Cocaine Screen Urine Not Detected (Not Detect); Fentanyl, urine Not Detected (Not Detect); Methadone Screen, Urine Not Detected (Not Detect); Opiate Screen Urine POSITIVE (Not Detect); Oxycodone Screen Urine Not Detected (Not Detect); Phencyclidine Screen Urine Not Detected (Not Detect)
--- NOTE | 2023-12-04 17:11 | PC.NURSE ---
able to obtain urine sample, patient ambulates to bathroom w/ steady gait. continues to endorse dizziness and headache. upon entry into room, patient appears to be sleeping each time. unable to tolerate lumbar puncture w/ provider.
[2023-12-04 17:32] LABS: TSH reflex Free T4 0.52 uIU/mL (0.32-4.0)
[2023-12-04] MEDS: Heparin Sodium,Porcine 5,000 UNIT/ML VIAL 5000 UNIT SUBCUT (18:15)
[2023-12-04] MEDS: dexAMETHasone sod phosphate 10 MG/ML VIAL IVPUSH (18:15)
[2023-12-04] MEDS: Labetalol HCL 100 MG TABLET PO (18:15)
[2023-12-04] MEDS: cefTRIAXone sodium 1 GM in 0.9 % Sodium Chloride 50 ML IV (18:16)
[2023-12-04 18:23] LABS: Lactic Acid 1.7 mmol/L (0.5-2.0)
[2023-12-04] MEDS: niCARdipine HCL 25 MG in 0.9 % Sodium Chloride 250 ML 52 MG IVCONT ×2 (19:12→22:03)
[2023-12-04] MEDS: vancomycin/NS 2,000 MG/500 ML PLAST..BAG 250 MG IV (19:33)
--- NOTE | 2023-12-04 19:51 | PHA.PROG ---
Admission Date/Time: December 04, 2023 17:48 Indication: Meningitis Weight in k kg Adjusted body weight in Kg: [place] body weight in Kg: Obesity Dosing Indication % IBW: Serum Creatinine - Last 168 Hours 12/04/23 11:24 Creatinine 0.99 Estimated CrCl and GFR - Last 168 Hours 12/04/23 11:24 Estim Creat Clear Calc 91.0 Estimated GFR > 60 Vancomycin Loading Dose: 2000mg x 1 Current Vancomycin Dosing Regimen: 1000mg Q12H Vancomycin Monitoring using AUC goal of 400 - 600 range with trough as surrogate marker: 574mg/L Date and Time for next Vancomycin Level to be drawn: 12/05 @0600 Pharmacist Comments on Vancomycin Plan: Obesity model being used, predicted trough of 17.3mg/L. Vancomycin dosing will take advantage of [employer] as a clinical decision support tool that uses Bayesian modeling to calculate individual patient's pharmacokinetic parameters and forecast the patient's drug concentration time course with the target goal AUC 24 range of 400 - 600 mg/L/hr.
--- NOTE | 2023-12-04 19:57 | PM.CCHP ---
History of Present Illness Date of Service: 12/04/23 Attending physician on admission: Kory Khan Chief Complaint: Headache The patient 33-year-old with a past medical history of hypertension noncompliant with amlodipine,? reports it makes her feel dizzy,? chronic back pain, and obesity who presented to the emergency department after abrupt onset of chills, headaches, body aches,? photophobia and feeling dizzy.?? In the emergency department blood pr/essure noted to be elevated to? 192/132? she reports she does check BP at home and they range 180/100s.? Laboratory data was significant for white count of 16.? LP was attempted in the emergency department,? but patient was unable to tolerate due to severe back pain.? ?Imaging:? ?Head CT/? head/ neck CTA-? no acute findings ? ED course:? She received 15 mg of IV labetalol in total,? 10 mg hydralazine IV, amlodipine 5 mg p.o., ceftriaxone 1 g, vancomycin 2000 mg, acyclovir 727 mg, dexamethasone 10 mg IV push, and started on a Cardene drip. ? Patient is being admitted to ICU for hemodynamically monitoring of hypertensive emergency and possible meningitis Review of Systems Review of Systems: as per HPI [facility] Past Medical History Medical History Hypertension Family History Family History Maternal Grandmother History of breast cancer Surgical History Surgical History History of facial surgery H/O tubal ligation History of bunionectomy Social History Social History (Updated 12/04/23 @ 11:31 by Candida Emery DO) Patient Tobacco Use Status: Current everyday Tobacco user Cigarettes Per Day: 8 Currently Displaying Signs/Symptoms of Drug Intoxication Withdrawal: No Advance Directives: No Advance Directives Information Provided: No service: No Meds Allergies Allergy/AdvReac Type Severity Reaction Status Date / Time No Known Allergies Allergy Verified 12/04/23 10:19 Active Medications: Current Medications Heparin Sodium (Porcine) (Heparin Sodium,Porcine 5,000 Unit/Ml Vial) 5,000 unit SUBCUT Q8H JORDAN Last Admin: 12/04/23 18:15 Dose: 5,000 unit Cefepime HCl 2 gm/ Sodium (Chloride) 50 mls @ 100 mls/hr IV Q8H [facility] Acyclovir Sodium 727 mg/ (Sodium Chloride) 114.54 mls @ 114.54 mls/hr IV Q8H [facility] Dexamethasone Sodium Phosphate (15 mg/ Sodium Chloride) 51.5 mls @ 208 mls/hr IV Q6H [facility] Nicardipine HCl 25 mg/ Sodium (Chloride) 260 mls @ 0 mls/hr IVCONT .Q0M [facility]; Protocol Last Admin: 12/04/23 19:12 Dose: 5 mg/hr, 52 mls/hr Vancomycin HCl 1,000 mg/ (Sodium Chloride) 270 mls @ 270 mls/hr IV Q12H [facility] Ampicillin Sodium 2 gm/ Sodium (Chloride) 100 mls @ 200 mls/hr IV Q4H [facility] Pharmacy Consult (Consult Rx Vancomycin Dosing) 1 each MISCELLANE DAILY PRN PRN Reason: Consult order Physical Exam Vital Signs: Vital Signs: Last Vital Signs Temp 98.9 F 12/04/23 18:53 Pulse 70 12/04/23 19:12 Resp 20 12/04/23 18:53 BP 189/111 H 12/04/23 19:12 Pulse Ox 95 12/04/23 18:53 O2 Del Method Room Air 12/04/23 18:53 BMI result Body Mass Index 45.8 ?General:? Alert oriented x3 no acute distress.? Speaking full sentences.? Speech is well articulated, thought process is coherent.? Following all commands. ?HEENT:? Head is normocephalic, atraumatic, pupils equal round reactive to light accommodation bilaterally.? Extraocular movements appear intact.? Buccal mucosa is dry, Neck is supple ?Cardiac:? Clear S1-S2, no murmurs rubs or gallops. ?Pulmonary:? Clear to auscultation, no wheezes, rales or rhonchi. ?Abdomen:? ?Abdomen soft, non-tender, non-distended. Normal bowel sounds. No pulsatile mass. No hepatosplenomegaly. ?Musculoskeletal:? Moving all 4 extremities upon request a major joints, there is no crepitus or tenderness.? The strength is 5/5 bilaterally and throughout all 4 extremities.? Gait not assessed at this point. ?Neurologic:? cranial nerves 2-12 are grossly intact.? No focal deficits noted.Motor strength as above.?? ?Skin:? Intact, no lesions, edema, erythema, clubbing or cyanosis.? No ulcers. Vascular:? 2+ pulses upper and lower extremities distally.? Results Labs 12/05/23 05:21 12/05/23 05:21 Labs: Laboratory Results - last 24 hr 12/04/23 12/04/23 12/04/23 11:24 16:23 16:35 MCV 91.2 MCH 30.4 MCHC 33.3 RDW 12.4 Plt Count 286 MPV 9.5 Immature Gran % (Auto) 0.5 H Neut % (Auto) 85.6 H Lymph % (Auto) 8.8 L [place] % (Auto) 4.0 Eos % (Auto) 0.7 Baso % (Auto) 0.4 Lymph # (Auto) 1.4 [place] # (Auto) 0.6 Eos # (Auto) 0.1 Baso # (Auto) 0.1 Abs Immat Gran (auto) 0.08 H Absolute Neuts (auto) 13.7 H Absolute Nucleated RBC 0.000 Nucleated RBC % (auto) 0.0 Anion Gap 12 Estim Creat Clear Calc 91.0 Estimated GFR > 60 Random Glucose 160 H Lactic Acid Calcium 10.5 H D Magnesium 1.9 Total Bilirubin 0.4 Direct Bilirubin 0.2 AST 18 ALT 15 Alkaline Phosphatase 91 Troponin I High Sens 8.2 Total Protein 7.9 Albumin 4.2 TSH 0.52 Beta HCG, Quant < 2 Urine Color Yellow Urine Appearance Clear Urine pH 7.5 Ur Specific [place] >= 1.030 H Urine Protein Negative Urine Glucose (UA) Negative Urine Ketones Negative Urine Blood Negative Urine Nitrite Negative Ur Leukocyte Esterase Negative Urine Opiates Screen POSITIVE H Ur Buprenorphine Scrn Not Detected Ur Oxycodone Screen Not Detected Urine Methadone Screen Not Detected Urine Fentanyl Screen Not Detected Ur Barbiturates Screen Not Detected Ur Phencyclidine Scrn Not Detected Ur Amphetamines Screen Not Detected U Benzodiazepines Scrn Not Detected Urine Cocaine Screen Not Detected U Marijuana (THC) Screen POSITIVE H Influenza Type A (PCR) NEGATIVE Influenza Type B (PCR) NEGATIVE RSV RNA Qual (PCR) NEGATIVE SARS-CoV-2 RNA (RT-PCR) NEGATIVE 12/04/23 17:57 MCV MCH MCHC RDW Plt Count MPV Immature Gran % (Auto) Neut % (Auto) Lymph % (Auto) [place] % (Auto) Eos % (Auto) Baso % (Auto) Lymph # (Auto) [place] # (Auto) Eos # (Auto) Baso # (Auto) Abs Immat Gran (auto) Absolute Neuts (auto) Absolute Nucleated RBC Nucleated RBC % (auto) Anion Gap Estim Creat Clear Calc Estimated GFR Random Glucose Lactic Acid 1.7 Calcium Magnesium Total Bilirubin Direct Bilirubin AST ALT Alkaline Phosphatase Troponin I High Sens Total Protein Albumin TSH Beta HCG, Quant Urine Color Urine Appearance Urine pH Ur Specific [place] Urine Protein Urine Glucose (UA) Urine Ketones Urine Blood Urine Nitrite Ur Leukocyte Esterase Urine Opiates Screen Ur Buprenorphine Scrn Ur Oxycodone Screen Urine Methadone Screen Urine Fentanyl Screen Ur Barbiturates Screen Ur Phencyclidine Scrn Ur Amphetamines Screen U Benzodiazepines Scrn Urine Cocaine Screen U Marijuana (THC) Screen Influenza Type A (PCR) Influenza Type B (PCR) RSV RNA Qual (PCR) SARS-CoV-2 RNA (RT-PCR) Imaging Radiologist's Impressions: Impressions Head CT 12/04/23 11:25 IMPRESSION: No acute intracranial pathology. Head/Neck CTA 12/04/23 14:59 IMPRESSION: 1. No evidence of acute intracranial hemorrhage or edematous territorial infarction. 2. CTA of the head and neck without proximal occlusion or flow-limiting stenosis. Assessment and Plan (1) Encephalopathy, hypertensive: Status: Acute (2) Hypertensive emergency: Status: Acute (3) Leukocytosis: Status: Acute (4) Acute headache: Qualifiers: Headache type: unspecified Intractability: not intractable Qualified Code(s): R51.9 - Headache, unspecified Status: Acute Plan ?33-year-old with a past medical history of hypertension noncompliance with medications, chronic back pain and obesity who is admitted to ICU with hypertensive emergency and rule out meningitis Neuro:? ?Rule out meningitis:? patient does have white count of 16, reporting acute headache, body aches, photophobia, and dizziness. ? Lactic is normal,? no evidence of severe septic shock.? Continue empiric antibiotics.? ED attempted an LP,? but unable to get it due to patient an increased amount of pain during procedure and refusing. IR tomorrow for LP.? ? Encephalopathy:? according to the emergency department patient with altered mental status times,? during my assessment patient alert and oriented x3 following all commands.? Continue with frequent neuro checks Cardiac:?? ?Hypertensive emergency:? patient?s blood pressure systolics in 190s to 200s? despite administration of multiple IV pushes and PO medications.? Now on Cardene drip with better blood pressure control.? Patient does report not taking amlodipine at home,? due to making her feel dizzy at times.? Wean off Cardene as tolerated Pulmonary:? ??No acute issues Renal:?? ?No acute issues Endo:?No acute issues GI:? ??No acute issues ??ID:?? ?Possible meningitis:? blood cultures done in the emergency department, empirically treated with ampicillin, cefepime, vancomycin, and? and? acyclovir.? LP tomorrow Heme/Onc:? No acute issues. Psych:? No acute issues. Misc: no acute issues Prophylaxis:? subQ heparin Code? status:? FULL CODE,??? Critical care time: x 30 min of critical care time? Case discussed with attending Dr Khan?
[2023-12-04] MEDS: cefEPime HCl 2 GM in 0.9 % Sodium Chloride 50 ML IV (19:58)
--- NOTE | 2023-12-04 20:31 | PHA.MEDREC ---
Pharmacy Consult ? Medication Reconciliation Pharmacy has completed the medication reconciliation.Went to speak to patient i was stopped by her nurse. Nurse confirmed she is only on amlodipine 5 mg daily.
[2023-12-04] MEDS: Ampicillin Sodium 2 GM in 0.9 % Sodium Chloride 100 ML IV ×2 (20:42→23:16)
[2023-12-05] VITALS (40 sets, daily range): BP systolic 125–208; BP diastolic 71–128; PULSE 66–108; RESP 14–22; TEMP 36.4–37.2; O2SAT 90–98; BMI 46.6
[2023-12-05] MEDS: cefEPime HCl 2 GM in 0.9 % Sodium Chloride 50 ML IV ×3 (01:32→18:13)
[2023-12-05] MEDS: Heparin Sodium,Porcine 5,000 UNIT/ML VIAL 5000 UNIT SUBCUT ×3 (01:33→18:13)
[2023-12-05] MEDS: Ampicillin Sodium 2 GM in 0.9 % Sodium Chloride 100 ML IV ×4 (03:27→18:12)
[2023-12-05] MEDS: niCARdipine HCL 25 MG in 0.9 % Sodium Chloride 250 ML 26 MG IVCONT ×2 (03:28→23:37)
[2023-12-05] MEDS: Acetaminophen 325 MG TABLET 650 MG PO ×3 (04:19→21:30)
[2023-12-05] MEDS: Ketorolac Tromethamine 15 MG/ML VIAL IVPUSH ×3 (04:19→18:20)
--- NOTE | 2023-12-05 04:29 | PC.NURSE ---
Addendum entered by Angelo Blanco RN 12/05/23 04:53: SERIAL NEUROLOGIC ASSESSMENTS UNCHANGED/STABLE OVERNIGHT Original Note: ADMIT TO 260-1 APPROX 6:40PM...PATIENT AWAKE..ALERT..ORIENTED X3...SPEECH CLEAR...[place] WITH GOOD STRENGTH...PUPILS EQUAL/REACTIVE....REMAINS PHOTOSENSITIVE...CONTUNUES WITH #6-7/10 HEADACHE...BP ELEVATED AT ADMISSION..STARTED NICARDIPINE DRIP AND TITRATED PER AUG WITH IMPROVED BP...MULTIPLE ANTIBIOTICS PER AUG...PRN TYLENOL AND TORADOL ORDERED BY ICU PLASTIC BUBBLE PACKER AND GIVEN APPROX 9:30PM...HEADACHE GRADUALY IMPROVED TO 1-2/10 PER PATIENT AND ABLE TO NAP INTERMITTANTLY...C/O RECURRANCE OF #6-7/10 HEADACHE THIS AM...REPEAT TYLENOL PO AND TORADOL GIVEN...REPOSITIONS SELF AD-VICTOR HUGO...OOB TO BEDSIDE COMMODE TO VOID WITH STEADY GAIT...NSR RARE PVC...DENIED NAUSEA...GINGERALE AND H20 TAKEN W/O DIFFICULTY..NPO AFTER 12AM EXCEPT FOR MED FOR PLANNED LP BY IR IN AM
[2023-12-05 05:29] LABS: VBG Base Excess 0.1 mmol/L; VBG HCO3 21 mmol/L (22-26); VBG pCO2 27 mmHg; VBG pO2 57 mmHg
[2023-12-05 05:30] LABS: Venous Blood Gas Refer to POC result
[2023-12-05 05:49] LABS: Basophils Percent Auto 0.2 % (0-2); Hematocrit 37.5 % (37.0-47.0); Hemoglobin 13.2 g/dl (12.0-16.0); Imm Gran Abs Auto 0.04 X10*3/uL (0.00-0.03); Imm Gran Pct Auto 0.3 % (0.0-0.4); Lymphocytes Absolute Auto 0.7 X10*3/uL (1.2-4.9); Lymphocytes Percent Auto 5.8 % (20-40); MANUAL DIFF FLAG SCAN; Mean Corpuscular HGB Conc 35.2 g/dl (31.0-35.0); Mean Corpuscular Hemoglobin 31.4 pg (27.0-33.0); Mean Corpuscular Volume 89.1 fL (80.0-98.0); Mean Platelet Volume 9.9 fL (9.4-12.3); Monocytes Absolute Auto 0.1 X10*3/uL (0.1-1.2); Neutrophils Absolute Auto 11.5 x10*3/uL (2.0-8.3); Neutrophils Percent Auto 92.7 % (45-73); Platelet Count 300 X10*3/uL (160-400); Red Blood Count 4.21 X10*6/uL (4.20-5.50); Red Cell Distribution Width 12.8 % (11.0-16.0); SCAN SMEAR FLAG 1; White Blood Count 12.4 X10*3/uL (4.8-10.8)
[2023-12-05 06:00] LABS: Alanine Aminotransferase 14 U/L (0-31); Alkaline Phosphatase 91 U/L (39-117); Anion Gap 11 (12-20); Aspartate Amino Transferase 14 U/L (5-31); Bilirubin Total 0.7 mg/dL (0.0-1.0); Blood Urea Nitrogen 11 mg/dL (9-16); Calcium 10.4 mg/dL (8.4-10.2); Carbon Dioxide 23 mmol/L (22-29); Chloride 106 mmol/L (96-108); Estimated Glomerular Filt Rate > 60; Glucose Random 230 mg/dL (60-115); Magnesium 1.9 mg/dL (1.6-2.6); Phosphorus 2.1 mg/dL (2.7-4.5); Potassium 3.7 mmol/L (3.3-5.1); Sodium 136 mmol/L (135-145); Total Protein 7.3 g/dL (6.5-8.0)
[2023-12-05 06:29] LABS: SLIDE REVIEW VERIFIED
[2023-12-05] MEDS: vancomycin HCL 1,000 MG in 0.9 % Sodium Chloride 250 ML 270 MG IV (07:50)
--- NOTE | 2023-12-05 08:35 | HE.PHANOTE ---
RE VANCO Patients current dose of vancomycin is 1000 mg Q12H. Continue current dose until level on 12/05 @0600. Renal improved, Scr yesterday was 0.99, today is 0.91. Predicted AUC continues to be 537.
[2023-12-05] MEDS: Potassium Phosphate/NS 15 MMOL/250 ML PLAST..BAG 62.5 MMOL IV (08:54)
--- NOTE | 2023-12-05 09:47 | MHC.CM.PN ---
Met w/pt to review d/c planning needs: pt very sleepy, states she is independent, has no services or DME and resides with her children. Declined HCP at this time and states she has transportation to home. Pt unsure of her insurance payor but has had Medicaid in the past. Will refer to Financial services for assistance. CM to follow for finalization of d/c plans.
--- NOTE | 2023-12-05 10:02 | P.PNCC_ITS ---
Subjective Subjective Date of Service: 12/05/23 Interval History: 33-year-old lady with underlying hypertension noncompliant with under hypertensive regimen admitted on 12/04/2023 with abrupt onset of chills, headaches, body aches, photophobia, and feeling dizzy, also with hypertensive emergency requiring Cardene drip. Patient initial laboratory studies with leukocytosis and left-sided shift. Initial CT head with no acute findings. Patient covered for suspected meningitis. LP attempted at emergency room and unsuccessful. Patient admitted to intensive care unit. No events overnight. Mental status appears to be at baseline. Continues to require Cardene drip. Critical Care Time (minutes): 45 Physical Exam 2 Vital Signs: Vital Signs: Last Vital Signs Temp 98.9 F 12/05/23 08:00 Pulse 89 12/05/23 09:17 Resp 18 12/05/23 09:00 BP 131/86 12/05/23 09:17 Pulse Ox 95 12/05/23 09:00 O2 Del Method Room Air 12/05/23 09:00 O2 Flow Rate 2 12/04/23 23:00 BMI result Body Mass Index 46.6 Const: General: no acute distress, alert and awake Nutritional Appearance: obese Eyes: Sclerae: sclerae normal EOM: EOMs intact bilaterally Neck: Neck: Yes no lymphadenopathy, Yes trachea midline and Yes supple Resp: Effort & Inspection: normal respiratory effort and no respiratory distress Auscultation: clear to auscultation bilaterally Cardio: Rate: regular rate Rhythm: regular rhythm Heart sounds: no gallops, no murmurs and no rubs GI: Palpation (GI): Soft to palpation and Other GI palpation findings present ( Nontender) Auscultation: normal bowel sounds Extrem: General: Yes no pedal edema, No clubbing and No cyanosis Objective Data Labs 12/05/23 05:21 12/05/23 05:21 Labs: Laboratory Results - last 24 hr 12/04/23 12/04/23 12/04/23 11:24 16:23 16:35 WBC 16.0 H RBC 4.34 Hgb 13.2 Hct 39.6 MCV 91.2 MCH 30.4 MCHC 33.3 RDW 12.4 Plt Count 286 MPV 9.5 Immature Gran % (Auto) 0.5 H Neut % (Auto) 85.6 H Lymph % (Auto) 8.[address] [place] % (Auto) 4.0 Eos % (Auto) 0.7 Baso % (Auto) 0.4 Lymph # (Auto) 1.4 [place] # (Auto) 0.6 Eos # (Auto) 0.1 Baso # (Auto) 0.1 Abs Immat Gran (auto) 0.08 H Absolute Neuts (auto) 13.7 H Absolute Nucleated RBC 0.000 Nucleated RBC % (auto) 0.0 Smear Tech's Comments VBG pH VBG pCO2 VBG pO2 VBG HCO3 VBG O2 Saturation VBG Base Excess Sodium 140 Potassium 3.8 Chloride 104 Carbon Dioxide 28 Anion Gap 12 BUN 10 Creatinine 0.99 Estim Creat Clear Calc 91.0 Estimated GFR > 60 Random Glucose 160 H Lactic Acid Calcium 10.5 H D Phosphorus Magnesium 1.9 Total Bilirubin 0.4 Direct Bilirubin 0.2 AST 18 ALT 15 Alkaline Phosphatase 91 Troponin I High Sens 8.2 Total Protein 7.9 Albumin 4.2 TSH 0.52 Beta HCG, Quant < 2 Urine Color Yellow Urine Appearance Clear Urine pH 7.5 Ur Specific [place] >= 1.030 H Urine Protein Negative Urine Glucose (UA) Negative Urine Ketones Negative Urine Blood Negative Urine Nitrite Negative Ur Leukocyte Esterase Negative Urine Opiates Screen POSITIVE H Ur Buprenorphine Scrn Not Detected Ur Oxycodone Screen Not Detected Urine Methadone Screen Not Detected Urine Fentanyl Screen Not Detected Ur Barbiturates Screen Not Detected Ur Phencyclidine Scrn Not Detected Ur Amphetamines Screen Not Detected U Benzodiazepines Scrn Not Detected Urine Cocaine Screen Not Detected U Marijuana (THC) Screen POSITIVE H Influenza Type A (PCR) NEGATIVE Influenza Type B (PCR) NEGATIVE RSV RNA Qual (PCR) NEGATIVE SARS-CoV-2 RNA (RT-PCR) NEGATIVE 12/04/23 12/05/23 12/05/23 17:57 05:20 05:21 WBC 12.4 H RBC 4.21 Hgb 13.2 Hct 37.5 MCV 89.1 MCH 31.4 MCHC 35.2 H RDW 12.8 Plt Count 300 MPV 9.9 Immature Gran % (Auto) 0.3 Neut % (Auto) 92.7 H Lymph % (Auto) 5.[address] [place] % (Auto) 1.0 L Eos % (Auto) 0.0 Baso % (Auto) 0.2 Lymph # (Auto) 0.[address] [place] # (Auto) 0.1 Eos # (Auto) 0.0 Baso # (Auto) 0.0 Abs Immat Gran (auto) 0.04 H Absolute Neuts (auto) 11.5 H Absolute Nucleated RBC 0.000 Nucleated RBC % (auto) 0.0 Smear Tech's Comments VERIFIED VBG pH 7.50 H VBG pCO2 27 VBG pO2 57 VBG HCO3 21 L VBG O2 Saturation 91.0 VBG Base Excess 0.1 Sodium 136 Potassium 3.7 Chloride 106 Carbon Dioxide 23 Anion Gap 11 L BUN 11 Creatinine 0.91 Estim Creat Clear Calc 100.0 Estimated GFR > 60 Random Glucose 230 H Lactic Acid 1.7 Calcium 10.4 H Phosphorus 2.1 L Magnesium 1.9 Total Bilirubin 0.7 Direct Bilirubin AST 14 ALT 14 Alkaline Phosphatase 91 Troponin I High Sens Total Protein 7.3 Albumin 4.0 TSH Beta HCG, Quant Urine Color Urine Appearance Urine pH Ur Specific [place] Urine Protein Urine Glucose (UA) Urine Ketones Urine Blood Urine Nitrite Ur Leukocyte Esterase Urine Opiates Screen Ur Buprenorphine Scrn Ur Oxycodone Screen Urine Methadone Screen Urine Fentanyl Screen Ur Barbiturates Screen Ur Phencyclidine Scrn Ur Amphetamines Screen U Benzodiazepines Scrn Urine Cocaine Screen U Marijuana (THC) Screen Influenza Type A (PCR) Influenza Type B (PCR) RSV RNA Qual (PCR) SARS-CoV-2 RNA (RT-PCR) Progress Note: A&P Assessment and plan (1) Hypertensive emergency: Status: Acute (2) Encephalopathy: Status: Acute Plan Assessment: 33-year-old lady admitted with acute encephalopathy and hypertensive emergency Plan: Neuro: Acute encephalopathy, unclear etiology, infectious versus hypertensive. Empiric coverage for meningitis until LP studies are available. LP with IR. Cardiac: Hypertensive emergency on the background of noncompliance with antihypertensive regimen. Continue to titrate off Cardene drip. Start lisinopril. Pulmonary: No acute issues. Renal: No acute issues. Endo: No acute issues. GI: No acute issues. ID: Meningitis is unlikely, but now on empiric coverage until LP studies are available. Heme/Onc: No acute issues. Psych: No acute issues. Miscellaneous: No acute issues. Prophylaxis: Heparin Diet: NPO for procedure Critical care time spent: 45 minutes Quality Stroke Does the patient have a stroke diagnosis?: No VTE Prior VTE?: No VTE Risk Level:: Medical - moderate - high VTE Device Contraindication: Treatment Not Indicated VTE Drug Contraindication: N/A - Med Ordered
[2023-12-05] MEDS: lisinopriL 20 MG TABLET PO ×2 (10:17→20:00)
[2023-12-05] MEDS: niCARdipine HCL 25 MG in 0.9 % Sodium Chloride 250 ML 52 MG IVCONT ×2 (10:20→17:08)
[2023-12-05] MEDS: fentaNYL citrate/PF 100 MCG/2 ML VIAL 25 MCG IVPUSH (12:25)
--- NOTE | 2023-12-05 15:19 | PM.PROC ---
Brief Operative Note Date of procedure: 12/05/23 Pre-op diagnosis: Encephalopathy Post-op diagnosis: same Procedure: FL lumbar puncture L2-3, opening pressure 19 cm H20. 8 cc clear csf removed and sent for analysis. Anesthesia: local
[2023-12-05 15:52] LABS: Glucose CSF 119 mg/dL; Total Protein CSF 24.1 mg/dL (15-45)
[2023-12-05] MEDS: amLODIPine Besylate 10 MG TABLET PO (15:55)
[2023-12-05 16:42] LABS: CSF Appearance Clear, Colorless; CSF Tube # 3
[2023-12-05 16:50] LABS: Cryptococcus neoformans/gattii Not Detected (Not Detect.); Enterovirus Not Detected (Not Detect.); Escherichia coli K1 Not Detected (Not Detect.); Haemophilus influenzae Not Detected (Not Detect.); Herpes simplex virus 1 Not Detected (Not Detect.); Herpes simplex virus 2 Not Detected (Not Detect.); Human herpesvirus 6 Not Detected (Not Detect.); Human parechovirus Not Detected (Not Detect.); Listeria monocytogenes Not Detected (Not Detect.); Neisseria meningitidis Not Detected (Not Detect.); Streptococcus agalactiae Not Detected (Not Detect.); Streptococcus pneumoniae Not Detected (Not Detect.); Varicella zoster virus Not Detected (Not Detect.)
[2023-12-05 17:14] LABS: Appearance CSF CLEAR
[2023-12-05 17:15] LABS: CSF Tube # 1; Color CSF COLORLESS
[2023-12-05 17:16] LABS: Red Blood Cell CSF 3 MM*3; White Blood Cell CSF 3 MM*3
[2023-12-05 17:17] LABS: CSF Monos 60 %; Lymphocytes CSF 30 %; Neutrophils CSF 10 %
[2023-12-05 17:18] LABS: Appearance CSF CLEAR; CSF Tube # 4; Color CSF COLORLESS; Lymphocytes CSF 100 %; Red Blood Cell CSF 0 MM*3; White Blood Cell CSF 2 MM*3
[2023-12-06] VITALS (25 sets, daily range): BP systolic 136–198; BP diastolic 59–115; PULSE 71–96; RESP 15–19; TEMP 36.1–37.3; O2SAT 92–98; BMI 46.2
[2023-12-06] MEDS: Heparin Sodium,Porcine 5,000 UNIT/ML VIAL 5000 UNIT SUBCUT ×3 (02:03→18:27)
[2023-12-06] MEDS: Acetaminophen 325 MG TABLET 650 MG PO (06:13)
[2023-12-06 07:00] LABS: Hematocrit 37.7 % (37.0-47.0); Hemoglobin 12.9 g/dl (12.0-16.0); Mean Corpuscular HGB Conc 34.2 g/dl (31.0-35.0); Mean Corpuscular Hemoglobin 31.1 pg (27.0-33.0); Mean Corpuscular Volume 90.8 fL (80.0-98.0); Mean Platelet Volume 9.5 fL (9.4-12.3); Platelet Count 270 X10*3/uL (160-400); Red Blood Count 4.15 X10*6/uL (4.20-5.50)
[2023-12-06 07:03] LABS: WBC ABN SCTR FOR CBC 1
[2023-12-06 07:14] LABS: Anion Gap 10 (12-20); Blood Urea Nitrogen 16 mg/dL (9-16); Calcium 10.9 mg/dL (8.4-10.2); Carbon Dioxide 27 mmol/L (22-29); Chloride 104 mmol/L (96-108); Creatinine Clr Calc Pharmacy 109.1; Estimated Glomerular Filt Rate > 60; Glucose Random 238 mg/dL (60-115); Magnesium 1.9 mg/dL (1.6-2.6); Potassium 3.6 mmol/L (3.3-5.1); Sodium 137 mmol/L (135-145)
[2023-12-06] MEDS: amLODIPine Besylate 10 MG TABLET PO (08:00)
[2023-12-06] MEDS: lisinopriL 20 MG TABLET PO ×2 (08:00→09:29)
[2023-12-06] MEDS: niCARdipine HCL 25 MG in 0.9 % Sodium Chloride 250 ML 52 MG IVCONT (08:01)
[2023-12-06] MEDS: Ketorolac Tromethamine 15 MG/ML VIAL IVPUSH (08:01)
[2023-12-06 08:57] LABS: Band Neutrophils Percent 0 % (3-5); Lymphocytes Percent Manual 8 % (20-40); Monocytes Percent Manual 4 % (2-11); Neutrophils Percent Manual 88 % (45-73)
[2023-12-06 08:58] LABS: Lymphocytes Absolute Manual 1.9 X10*3/uL (1.2-4.9); Neutrophils Absolute Manual 20.9 X10*3/uL (2.0-8.3); Platelet Estimate NORMAL (NORMAL); Platelet Morphology Comment NORMAL; RBC Morphology NORMAL; White Blood Count 23.8 X10*3/uL (4.8-10.8)
--- NOTE | 2023-12-06 09:28 | P.PNCC_ITS ---
Subjective Subjective Date of Service: 12/06/23 Interval History: 33-year-old lady with underlying hypertension noncompliant with under hypertensive regimen admitted on 12/04/2023 with abrupt onset of chills, headaches, body aches, photophobia, and feeling dizzy, also with hypertensive emergency requiring Cardene drip. Patient initial laboratory studies with leukocytosis and left-sided shift. Initial CT head with no acute findings. Patient covered for suspected meningitis. LP attempted at emergency room and unsuccessful. Patient admitted to intensive care unit. LP studies on 12/05/2023 with no evidence of meningitis or encephalitis. No events overnight. Being titrated off Cardene drip. Critical Care Time (minutes): 30 Physical Exam 2 Vital Signs: Vital Signs: Last Vital Signs Temp 97.9 F 12/06/23 08:00 Pulse 90 12/06/23 09:00 Resp 18 12/06/23 09:00 BP 154/92 H 12/06/23 09:00 Pulse Ox 98 12/06/23 09:00 O2 Del Method Room Air 12/06/23 09:00 O2 Flow Rate 2 12/04/23 23:00 BMI result Body Mass Index 46.2 Const: General: no acute distress, alert and awake Eyes: Sclerae: sclerae normal EOM: EOMs intact bilaterally Neck: Neck: Yes no lymphadenopathy, Yes trachea midline and Yes supple Resp: Effort & Inspection: normal respiratory effort and no respiratory distress Auscultation: clear to auscultation bilaterally Cardio: Rate: regular rate Rhythm: regular rhythm Heart sounds: no gallops, no murmurs and no rubs GI: Palpation (GI): Soft to palpation and Other GI palpation findings present ( Nontender) Auscultation: normal bowel sounds Extrem: General: Yes no pedal edema, No clubbing and No cyanosis Objective Data Labs 12/06/23 06:50 12/06/23 06:50 Labs: Laboratory Results - last 24 hr 12/05/23 12/05/23 12/05/23 14:24 14:24 14:24 WBC RBC Hgb Hct MCV MCH MCHC RDW Plt Count MPV Immature Gran % (Auto) Neut % (Auto) Lymph % (Auto) [place] % (Auto) Eos % (Auto) Baso % (Auto) Lymph # (Auto) [place] # (Auto) Eos # (Auto) Baso # (Auto) Abs Immat Gran (auto) Absolute Neuts (auto) Absolute Nucleated RBC Nucleated RBC % (auto) Neutrophils % (Manual) Band Neutrophils % Lymphocytes % (Manual) Monocytes % (Manual) Abs Neuts (Manual) Lymphocytes # (Manual) Monocytes # (Manual) Platelet Estimate Plt Morphology Comment RBC Morphology Sodium Potassium Chloride Carbon Dioxide Anion Gap BUN Creatinine Estim Creat Clear Calc Estimated GFR Random Glucose Calcium Phosphorus Magnesium CSF Tube Number 3 1 4 CSF Volume 2.0 CSF Appearance CSF Color CSF WBC CSF RBC CSF Neutrophils CSF Lymphocytes CSF Monocytes % CSF Appearance (b) CSF Glucose CSF Total Protein CSF C.neoform/gat PCR CSF CMV DNA (PCR) CSF Enterovirus (PCR) CSF E. coli K1 (PCR) CSF H. influenzae (PCR) CSF HSV I (PCR) CSF HSV II (PCR) CSF HHV 6 (PCR) CSF L.monocytogenes PCR CSF N. meningitidis PCR CSF Parechovirus (PCR) CSF S. agalactiae (PCR) CSF S. pneumoniae (PCR) CSF VZV (PCR) 12/05/23 12/05/23 12/05/23 14:24 14:24 14:24 WBC RBC Hgb Hct MCV MCH MCHC RDW Plt Count MPV Immature Gran % (Auto) Neut % (Auto) Lymph % (Auto) [place] % (Auto) Eos % (Auto) Baso % (Auto) Lymph # (Auto) [place] # (Auto) Eos # (Auto) Baso # (Auto) Abs Immat Gran (auto) Absolute Neuts (auto) Absolute Nucleated RBC Nucleated RBC % (auto) Neutrophils % (Manual) Band Neutrophils % Lymphocytes % (Manual) Monocytes % (Manual) Abs Neuts (Manual) Lymphocytes # (Manual) Monocytes # (Manual) Platelet Estimate Plt Morphology Comment RBC Morphology Sodium Potassium Chloride Carbon Dioxide Anion Gap BUN Creatinine Estim Creat Clear Calc Estimated GFR Random Glucose Calcium Phosphorus Magnesium CSF Tube Number CSF Volume 2.0 CSF Appearance CLEAR CLEAR CSF Color COLORLESS COLORLESS CSF WBC 3 CSF RBC CSF Neutrophils CSF Lymphocytes CSF Monocytes % CSF Appearance (b) CSF Glucose CSF Total Protein CSF C.neoform/gat PCR CSF CMV DNA (PCR) CSF Enterovirus (PCR) CSF E. coli K1 (PCR) CSF H. influenzae (PCR) CSF HSV I (PCR) CSF HSV II (PCR) CSF HHV 6 (PCR) CSF L.monocytogenes PCR CSF N. meningitidis PCR CSF Parechovirus (PCR) CSF S. agalactiae (PCR) CSF S. pneumoniae (PCR) CSF VZV (PCR) 12/05/23 12/05/23 12/05/23 14:24 14:24 14:24 WBC RBC Hgb Hct MCV MCH MCHC RDW Plt Count MPV Immature Gran % (Auto) Neut % (Auto) Lymph % (Auto) [place] % (Auto) Eos % (Auto) Baso % (Auto) Lymph # (Auto) [place] # (Auto) Eos # (Auto) Baso # (Auto) Abs Immat Gran (auto) Absolute Neuts (auto) Absolute Nucleated RBC Nucleated RBC % (auto) Neutrophils % (Manual) Band Neutrophils % Lymphocytes % (Manual) Monocytes % (Manual) Abs Neuts (Manual) Lymphocytes # (Manual) Monocytes # (Manual) Platelet Estimate Plt Morphology Comment RBC Morphology Sodium Potassium Chloride Carbon Dioxide Anion Gap BUN Creatinine Estim Creat Clear Calc Estimated GFR Random Glucose Calcium Phosphorus Magnesium CSF Tube Number CSF Volume CSF Appearance CSF Color CSF WBC 2 CSF RBC 3 0 CSF Neutrophils 10 CSF Lymphocytes 30 100 CSF Monocytes % 60 CSF Appearance (b) Clear, Colorless CSF Glucose 119 CSF Total Protein 24.1 CSF C.neoform/gat PCR Not Detected CSF CMV DNA (PCR) Not Detected CSF Enterovirus (PCR) Not Detected CSF E. coli K1 (PCR) Not Detected CSF H. influenzae (PCR) Not Detected CSF HSV I (PCR) Not Detected CSF HSV II (PCR) Not Detected CSF HHV 6 (PCR) Not Detected CSF L.monocytogenes PCR Not Detected CSF N. meningitidis PCR Not Detected CSF Parechovirus (PCR) Not Detected CSF S. agalactiae (PCR) Not Detected CSF S. pneumoniae (PCR) Not Detected CSF VZV (PCR) Not Detected 12/06/23 06:50 WBC 23.8 H RBC 4.15 L Hgb 12.9 Hct 37.7 MCV 90.8 MCH 31.1 MCHC 34.2 RDW 13.0 Plt Count 270 MPV 9.5 Immature Gran % (Auto) Cancelled Neut % (Auto) Cancelled Lymph % (Auto) Cancelled [place] % (Auto) Cancelled Eos % (Auto) Cancelled Baso % (Auto) Cancelled Lymph # (Auto) Cancelled [place] # (Auto) Cancelled Eos # (Auto) Cancelled Baso # (Auto) Cancelled Abs Immat Gran (auto) Cancelled Absolute Neuts (auto) Cancelled Absolute Nucleated RBC 0.000 Nucleated RBC % (auto) 0.0 Neutrophils % (Manual) 88 H Band Neutrophils % 0 L Lymphocytes % (Manual) 8 L Monocytes % (Manual) 4 Abs Neuts (Manual) 20.9 H Lymphocytes # (Manual) 1.9 Monocytes # (Manual) 1.0 Platelet Estimate NORMAL Plt Morphology Comment NORMAL RBC Morphology NORMAL Sodium 137 Potassium 3.6 Chloride 104 Carbon Dioxide 27 Anion Gap 10 L BUN 16 Creatinine 0.83 Estim Creat Clear Calc 109.1 Estimated GFR > 60 Random Glucose 238 H Calcium 10.9 H Phosphorus 3.0 Magnesium 1.9 CSF Tube Number CSF Volume CSF Appearance CSF Color CSF WBC CSF RBC CSF Neutrophils CSF Lymphocytes CSF Monocytes % CSF Appearance (b) CSF Glucose CSF Total Protein CSF C.neoform/gat PCR CSF CMV DNA (PCR) CSF Enterovirus (PCR) CSF E. coli K1 (PCR) CSF H. influenzae (PCR) CSF HSV I (PCR) CSF HSV II (PCR) CSF HHV 6 (PCR) CSF L.monocytogenes PCR CSF N. meningitidis PCR CSF Parechovirus (PCR) CSF S. agalactiae (PCR) CSF S. pneumoniae (PCR) CSF VZV (PCR) Microbiology Microbiology Results: Microbiology 12/05/23 14:24 Cerebrospinal Fluid Gram Stain - Final 12/05/23 14:24 Cerebrospinal Fluid CSF Examination - Final 12/05/23 14:24 Cerebrospinal Fluid Fluid Description - Final 12/04/23 17:57 Blood - Venous Blood Culture - Preliminary No growth after 24 hours. 12/04/23 11:24 Blood - Venous Blood Culture - Preliminary No growth after 24 hours. Progress Note: A&P Assessment and plan (1) Hypertensive emergency: Status: Acute Plan Assessment: 33-year-old lady admitted with acute encephalopathy and hypertensive emergency Plan: Neuro: Acute encephalopathy, appears to be hypertensive emergency related, resolved. Cardiac: Hypertensive emergency on the background of noncompliance with antihypertensive regimen. Continue to titrate off Cardene drip. Continue lisinopril and amlodipine, start spironolactone. Pulmonary: No acute issues. Renal: No acute issues. Endo: No acute issues. GI: No acute issues. ID: LP studies are negative for meningitis, empiric antibiotics/antiviral stopped.. Heme/Onc: No acute issues. Psych: No acute issues. Miscellaneous: No acute issues. Prophylaxis: Heparin Diet: Regular Critical care time spent: 30 minutes Quality Stroke Does the patient have a stroke diagnosis?: No VTE Prior VTE?: No VTE Risk Level:: Medical - moderate - high VTE Device Contraindication: Treatment Not Indicated VTE Drug Contraindication: N/A - Med Ordered
[2023-12-06] MEDS: Insulin Glargine,Hum.rec.anlog 100 UNIT/ML 10 ML VIAL 10 UNIT SUBCUT (09:29)
[2023-12-06] MEDS: Venlafaxine HCl ER 75 MG CAP.ER.24H PO (09:29)
[2023-12-06] MEDS: Spironolactone 25 MG TABLET PO (09:30)
[2023-12-07] VITALS (7 sets, daily range): BP systolic 140–154; BP diastolic 64–78; PULSE 62–69; RESP 16–18; TEMP 36.2–36.8; O2SAT 96–98
[2023-12-07 06:01] LABS: MANUAL DIFF FLAG NO
[2023-12-07 06:14] LABS: Basophils Percent Auto 0.1 % (0-2); Hematocrit 37.7 % (37.0-47.0); Hemoglobin 13.2 g/dl (12.0-16.0); Imm Gran Abs Auto 0.13 X10*3/uL (0.00-0.03); Imm Gran Pct Auto 0.7 % (0.0-0.4); Lymphocytes Absolute Auto 1.4 X10*3/uL (1.2-4.9); Lymphocytes Percent Auto 7.9 % (20-40); Mean Corpuscular Hemoglobin 31.4 pg (27.0-33.0); Mean Corpuscular Volume 89.5 fL (80.0-98.0); Mean Platelet Volume 9.7 fL (9.4-12.3); Monocytes Percent Auto 5.6 % (2-11); Neutrophils Absolute Auto 15.4 x10*3/uL (2.0-8.3); Neutrophils Percent Auto 85.7 % (45-73); Platelet Count 273 X10*3/uL (160-400); Red Blood Count 4.21 X10*6/uL (4.20-5.50); Red Cell Distribution Width 12.6 % (11.0-16.0)
[2023-12-07 06:26] LABS: Anion Gap 13 (12-20); Blood Urea Nitrogen 19 mg/dL (9-16); Calcium 10.6 mg/dL (8.4-10.2); Carbon Dioxide 28 mmol/L (22-29); Chloride 101 mmol/L (96-108); Creatinine Clr Calc Pharmacy 111.8; Estimated Glomerular Filt Rate > 60; Glucose Random 178 mg/dL (60-115); Magnesium 2.1 mg/dL (1.6-2.6); Phosphorus 3.1 mg/dL (2.7-4.5); Potassium 3.6 mmol/L (3.3-5.1); Sodium 138 mmol/L (135-145)
[2023-12-07] MEDS: Acetaminophen 325 MG TABLET 650 MG PO (08:35)
[2023-12-07] MEDS: Spironolactone 25 MG TABLET PO (08:37)
[2023-12-07] MEDS: lisinopriL 40 MG TABLET PO (08:39)
[2023-12-07] MEDS: Venlafaxine HCl ER 75 MG CAP.ER.24H PO (08:39)
[2023-12-07] MEDS: amLODIPine Besylate 10 MG TABLET PO (08:40)
[2023-12-07] MEDS: Insulin Glargine,Hum.rec.anlog 100 UNIT/ML 10 ML VIAL 10 UNIT SUBCUT (08:41)
--- NOTE | 2023-12-07 11:12 | P.DS_ITS ---
DS: Providers Provider Date of Service: 12/07/23 Date of admission: 12/04/23 17:48 Primary care physician: Chuck Her MD DS: Diagnosis Discharge Diagnosis (1) Hypertensive emergency: Status: Acute DS: Summary Hospital Course Hospital Course: Chief Complaint: Headache The patient 33-year-old with a past medical history of hypertension noncompliant with amlodipine,? reports it makes her feel dizzy,? chronic back pain, and obesity who presented to the emergency department after abrupt onset of chills, headaches, body aches,? photophobia and feeling dizzy.?? In the emergency department blood pr/essure noted to be elevated to? 192/132? she reports she does check BP at home and they range 180/100s.? Laboratory data was significant for white count of 16.? LP was attempted in the emergency department,? but patient was unable to tolerate due to severe back pain.? ?Imaging:? ?Head CT/? head/ neck CTA-? no acute findings ? ED course:? She received 15 mg of IV labetalol in total,? 10 mg hydralazine IV, amlodipine 5 mg p.o., ceftriaxone 1 g, vancomycin 2000 mg, acyclovir 727 mg, dexamethasone 10 mg IV push, and started on a Cardene drip. ? Patient is being admitted to ICU for hemodynamically monitoring of hypertensive emergency and possible meningitis Hospital course: Patient was admitted through the ICU for management of hypertension emergency associated with confusion, headache. There was also concern for meningitis. As for HTN emergency she was inititated on Nipride drip and later was transitioned to oral medication inlcuding Lisinpril, Norvasc and Aldactone--see med list. Her blood pressure not yet at [place] but much and should have continuous outpatient follow up for further adjustment in her BP meds. She is asked to check her blood pressure outside of the hospital and should follow up with PCP for further evaluation and adjustment to medication. Given that her blood pressures have longstanding uncontrolled HTN, it is advised to gradually lower her blood pressures and ultimately to reach a targeted goal. Her symptoms of headaches, dizziness and confused have all resolved. Will discharge her on present medication of Lisinopril 40, Norvasc 10 and ladactone 25 mg daily. Creatine is within normal and electrolytes are normal. As for elevated blood sugars, her fasting blood sugar is 178, sugars range from 160 to 238, there was no acidosis, and this, hemoglobin A1C is 6, so will add Metoformin 500 mg twice daily, she says she is able to check her sugars so will give glucometer and advised to keep a log of sugars level. We talk about taking measures to loose weight. Leukocytosis was likely reactive and due to steroid. Meningitis was ruled out. Final diagnoses: Hypertension emergency Hypertension encephalopathy Leukocytosis headache Time Attestation Discharge Coordination Time (in mins): 34 Quality: Safe Use of Opioids Does Pt have an Active Cancer Diagnosis on the Problem List?: No Quality: Stroke Does the patient have a stroke diagnosis?: No Physical Exam Vital Signs: Vital Signs: Last Vital Signs Temp 97.6 F 12/07/23 08:00 Pulse 69 12/07/23 08:00 Resp 18 12/07/23 08:00 BP 150/76 H 12/07/23 08:40 Pulse Ox 98 12/07/23 08:00 O2 Del Method Room Air 12/07/23 08:00 O2 Flow Rate 2 12/04/23 23:00 BMI result Body Mass Index 46.2 DS: Data Data Completed and Pending Labs on day of discharge: Laboratory Results - last 24 hr 12/07/23 05:39 WBC 18.0 H RBC 4.21 Hgb 13.2 Hct 37.7 MCV 89.5 MCH 31.4 MCHC 35.0 RDW 12.6 Plt Count 273 MPV 9.7 Immature Gran % (Auto) 0.7 H Neut % (Auto) 85.7 H Lymph % (Auto) 7.9 L [place] % (Auto) 5.6 Eos % (Auto) 0.0 Baso % (Auto) 0.1 Lymph # (Auto) 1.4 [place] # (Auto) 1.0 Eos # (Auto) 0.0 Baso # (Auto) 0.0 Abs Immat Gran (auto) 0.13 H Absolute Neuts (auto) 15.4 H Absolute Nucleated RBC 0.000 Nucleated RBC % (auto) 0.0 Sodium 138 Potassium 3.6 Chloride 101 Carbon Dioxide 28 Anion Gap 13 BUN 19 H Creatinine 0.81 Estim Creat Clear Calc 111.8 Estimated GFR > 60 Random Glucose 178 H Calcium 10.6 H Phosphorus 3.1 Magnesium 2.1 Preliminary micro results at discharge 12/05/23 14:24 CSF Culture - Preliminary Cerebrospinal Fluid No growth after 2 days 12/04/23 17:57 Blood Culture - Preliminary Blood - Venous No growth after 48 hours. 12/04/23 11:24 Blood Culture - Preliminary Blood - Venous No growth after 48 hours. Discharge Plan Discharge Anticipated Discharge Date/Time: 12/07/23 11:06 Patient Disposition: Home, Self-Care Discharge Diagnosis: Hypertension emergency, HTN encephalopathy Referrals: Chuck Her MD [Primary Care Provider] - 1 Week Discharge Medications: New spironolactone 25 mg Tablet 25 mg PO DAILY Qty: 90 0RF Protocol: Hold for SBP< HOLD for SBP < : 90 amlodipine 10 mg Tablet 10 mg PO DAILY Qty: 90 0RF Protocol: Hold for SBP< HOLD for SBP < : 90 lisinopril 40 mg Tablet 40 mg PO DAILY Qty: 90 0RF Protocol: Hold for SBP< HOLD for SBP < : 90 (DME) FreeStyle Lite Strips Strip Qty: 100 0RF Rx Instructions: Test four times a day or as directed. (DME) blood-glucose meter [FreeStyle Lite Meter] Kit Qty: 1 0RF Rx Instructions: As Directed alcohol swabs Pads, Medicated 1 pad TOPICAL QIDACHS Qty: 100 0RF Rx Instructions: Use four times a day or as directed. (DME) lancets [FreeStyle Lancets] 28 gauge misc Qty: 100 0RF Rx Instructions: Test four times a day or as directed. Discontinued amlodipine 5 mg tablet 5 mg PO DAILY 30 Days Qty: 30 0RF Discharge Orders: Discharge Order (Routine); Ordered 12/07/23 Ordered By: Tejas Moe Diet: Advance to usual diet Activity on Discharge: As tolerated Stand Alone Forms: Patient Portal Discharge page, Work/School Release Print Language: Macedonian Care Plan Goals: Blood pressure controll and prevent complication of uncontrolled blood pressure Health Concerns: Uncontrolled high blood pressure new diabetes Plan of Treatment: take all prescribed medication as directed and follow up with your Doctor in a week, call for appointment Check your blood pressure at home on at local store or pharmacy Assessment: see above Discharge Date/Time: 12/07/23 14:03
[2023-12-07 11:24] LABS: Estimated Average Glucose 126 mg/dL
--- NOTE | 2023-12-07 12:43 | MHC.CM.PN ---
Pt has been medically cleared for DC, she will go home, self care, via family transport.
== END 2023-12-07 14:03 | disposition home or self-care (01) | DRG 199 ==
LOC: HO.ED 17:50 → HO.EDOVER 18:03 → HO.ICU 18:11 → HO.IMC 12-06 14:59
PROVIDERS: Emergency Medicine; Admitting Provider Internal Medicine Pulmonary Disease; Emergency Provider Student in an Organized Health Care Education/Training Program; PCP Internal Medicine; Visit Provider Internal Medicine
DX: I16.1 Hypertensive emergency (principal); I67.4 Hypertensive encephalopathy; Z68.42 Body mass index [BMI] 45.0-49.9, adult; I10 Essential (primary) hypertension; E66.9 Obesity, unspecified; F17.210 Nicotine dependence, cigarettes, uncomplicated; G89.29 Other chronic pain; M54.9 Dorsalgia, unspecified; Z71.6 Tobacco abuse counseling; T46.1X6A Underdosing of calcium-channel blockers, initial encounter; Z91.128 Patient's intentional underdosing of medication regimen for other reason; Z20.822 Contact with and (suspected) exposure to COVID-19; Z79.899 Other long term (current) drug therapy
CPT/HCPCS: 0241U; 36415; 62328; 70450; 70496; 70498; 80048; 80053; 80076; 80307; 81003; 82803; 82945; 83036; 83605; 83735; 84100; 84157; 84443; 84484; 84702; 85007; 85025; 85027; 87015; 87040; 87070; 87205; 87483; 89051; 93005; 99285; J0133; J0290; J0360; J0692; J0696; J1100; J1200; J1644; J1885; J1920; J2270; J2404; J2405; J2765; J3010; J3370; Q9967

== ENCOUNTER → 2023-12-04 10:53 | Outpatient (BNV) | payer MEDICAID, SELFPAY | PROVIDERS: Emergency Provider Student in an Organized Health Care Education/Training Program; PCP Internal Medicine; Visit Provider Internal Medicine Cardiovascular Disease | DX: R94.31 Abnormal electrocardiogram [ECG] [EKG] (principal) | CPT/HCPCS: 93010 ==

== ENCOUNTER 2023-12-04 17:48 | Outpatient (BNV) | payer MEDICAID, SELFPAY | END 2023-12-05 14:10 | PROVIDERS: Admitting Provider Internal Medicine Pulmonary Disease; Emergency Provider Student in an Organized Health Care Education/Training Program; PCP Internal Medicine; Visit Provider Physician Assistant Surgical | DX: R51.9 Headache, unspecified (principal) | CPT/HCPCS: 62328 ==

== ENCOUNTER → 2023-12-04 17:48 | Outpatient (BNV) | payer MEDICAID, SELFPAY | PROVIDERS: Admitting Provider Internal Medicine Pulmonary Disease; Emergency Provider Student in an Organized Health Care Education/Training Program; PCP Internal Medicine; Visit Provider Registered Nurse Community Health | DX: I67.4 Hypertensive encephalopathy (principal); I16.1 Hypertensive emergency; D72.829 Elevated white blood cell count, unspecified; R51.9 Headache, unspecified | CPT/HCPCS: 99291 ==

== ENCOUNTER → 2023-12-04 17:48 | Outpatient (BNV) | payer MEDICAID, SELFPAY | PROVIDERS: Admitting Provider Internal Medicine Pulmonary Disease; Emergency Provider Student in an Organized Health Care Education/Training Program; PCP Internal Medicine; Visit Provider Internal Medicine Pulmonary Disease | DX: I16.1 Hypertensive emergency (principal) | CPT/HCPCS: 99291 ==

== ENCOUNTER → 2023-12-04 17:48 | Outpatient (BNV) | payer MEDICAID, SELFPAY | PROVIDERS: Admitting Provider Internal Medicine Pulmonary Disease; Emergency Provider Student in an Organized Health Care Education/Training Program; PCP Internal Medicine; Visit Provider Internal Medicine | DX: I16.1 Hypertensive emergency (principal) | CPT/HCPCS: 99239 ==

== ENCOUNTER 2024-06-25 10:07 | Outpatient (REF) | payer MEDICAID, SELFPAY ==
[2024-06-28 02:52] LABS: TS Negative Control Passed; TS Panel A 0; TS Panel B 0; TS Positive Control Passed; TSpotTB Negative (Negative)
== END 2024-06-25 10:08 | disposition home or self-care (01) ==
LOC: HO.LAB 10:07
PROVIDERS: PCP Internal Medicine; Visit Provider Internal Medicine
DX: Z02.1 Encounter for pre-employment examination (principal); Z11.1 Encounter for screening for respiratory tuberculosis
CPT/HCPCS: 36415; 86481

== ENCOUNTER 2025-02-21 22:42 | Inpatient (IN) | payer MEDICAID, SELFPAY ==
--- NOTE | ~2025-02-21 | CT_ITS ---
CLINICAL HISTORY: severe headache HTN started [address] head without contrast Comparison: Head CT from 12/04/2023 Findings: No acute intracranial hemorrhage, accounting for artifacts. No midline shift or hydrocephalus. No large arterial territorial infarction by CT, with artifacts. Vascular calcifications noted. Metal artifacts including from imaged ear rings. Partially empty sella by CT. Mild mucosal thickening of the imaged paranasal sinuses. Imaged nasal septum deviates to the right. Trace right mastoid effusion. No acute skull fracture. IMPRESSION: No acute intracranial abnormality by CT. This document has been electronically signed by: Carson Portillo MD on 02/22/2025 00:45:20
--- NOTE | ~2025-02-21 | CT_ITS ---
CLINICAL HISTORY: AMS CT head without contrast Comparison: CT/REG/SR - CT HEAD/BRAIN WO IV CON - 02/21/25 23:16 EDT Findings: No acute intracranial hemorrhage or midline shift. The [place]-white matter differentiation is maintained. No significant atrophy-like change or white matter disease. The paranasal sinuses and mastoid air cells are clear. The globes are proptotic. The calvarium is intact. IMPRESSION: No acute intracranial findings. This document has been electronically signed by: Catalino Acuna DO on 02/22/2025 10:55:40
--- NOTE | 2025-02-21 22:46 | ECG_ITS ---
Test Reason : HTN Blood Pressure : */* mmHG Vent. Rate : 64 BPM Atrial Rate : 64 BPM P-R Int : 158 ms QRS Dur : 88 ms QT Int : 438 ms P-R-T Axes : 36 -12 30 degrees QTcB Int : 451 ms Normal sinus rhythm Moderate voltage criteria for LVH, may be normal variant ( R in aVL , [place] product ) Borderline ECG When compared with ECG of 04-Dec-2023 11:27, Fusion complexes are no longer Present Premature ventricular complexes are no longer Present Premature supraventricular complexes are no longer Present Borderline criteria for Lateral infarct are no longer Present Non-specific change in ST segment in Inferior leads Referred By: Candida Emery Electronically Signed By: Charlie Mora
[2025-02-21 22:48] VITALS: BP 215/125; PULSE 90; RESP 18; TEMP 36.6; O2SAT 97; BMI 41.6
--- NOTE | 2025-02-21 22:49 | ED_ITS ---
HPI - Headache General Chief Complaint: General Medical Stated Complaint: speech and memory Time Seen by Provider: 02/21/25 22:53 Source: patient Mode of arrival: ambulatory Limitations: no limitations History of Present Illness ED Provider: Dr. Guerline Baird HPI Narrative: patient comes to the emergency room complaining of not feeling well for several hours. Patient's seems To be in pain, confused, trying to answering questions but she seems a bit confused. in triage, it was noted that patient's blood pressure is 215/125. Patient complaining of headache, denies neck pain, denies fever chills, no URI symptoms. Patient states that she has been out of her blood pressure medications for several months. Does not remember exactly how long She ran out of her meds. Related Data Previous Rx's ?Medication ?Instructions ?Recorded alcohol swabs 1 pad topical QIDACHS #100 e a 12/07/23 amlodipine 10 mg tablet 10 mg PO DAILY #90 tabs 11/18 blood sugar diagnostic (FreeStyle #100 ea 12/07/23 Lite Strips) blood-glucose meter (FreeStyle #1 ea 12/07/23 Lite Meter kit) lancets 28 gauge (FreeStyle #100 ea 12/07/23 Lancets) lisinopril 40 mg tablet 40 mg PO DAILY #90 tabs 11/18 spironolactone 25 mg tablet 25 mg PO DAILY #90 tabs Allergies Allergy/AdvReac Type Severity Reaction Status Date / Time No Known Allergies Allergy Verified 02/21/25 22:51 Review of Systems 2 Review of Systems: Constitutional : No Weight loss, No Fever, No Chills, No Night Sweats, No Fatigue, complaining of generalized malaise ENT/Mouth : No Hearing loss, No Ear Pain, No Nasal Congestion, No Sinus Pain, No Hoarseness, No sore throat, No Rhinorrhea, No Swallowing Difficulty Eyes: No Eye Pain, No Swelling, No Redness, No Foreign Body, No Discharge, No Vision Changes Cardiovascular : No Chest Pain, No SOB, No Dyspnea on Exertion, No Orthopnea, No Edema, No Palpitations Respiratory : No Cough, No Sputum, No Wheezing, No Smoke Exposure, No Dyspnea Gastrointestinal : No Nausea, No Vomiting, No Diarrhea, No Constipation, No abdominal Pain, No Hematochezia, No Melena Genitourinary : no irregular bleeding, No Dysuria, No Urinary Frequency, No Hematuria, No Urinary Incontinence, No Urgency, No Flank Pain, No Urinary Flow Changes, No Hesitancy Musculoskeletal : No joint pain, No Myalgias, No Joint Swelling Skin : No Skin Lesions, No rash Neuro : No Weakness, No Numbness, No Paresthesias, No Loss of Consciousness, No Dizziness, Complaining of Headache, admits that she is feeling confused Psych : No Anxiety/Panic, No Depression, No SI/HI/AH/VH, No Social Issues, Heme/Lymph: No Bruising, No Bleeding,No Lymphadenopathy Endocrine : No Polyuria, No Polydipsia, No Temperature Intolerance [facility] Past Medical History Medical History Hypertension Surgical History History of facial surgery H/O tubal ligation History of bunionectomy Family History Family History Maternal Grandmother History of breast cancer Social History Social History (Updated 12/04/23 @ 11:31 by Candida Emery DO) Patient Tobacco Use Status: Current everyday Tobacco user Cigarettes Per Day: 8 Do you have a plan to hurt others: No Plan service: No Physical Exam 2 Exam: Exam: Appearance: Alert. seems a bit lethargic, confused, tearful Eyes: Pupils equal, round and reactive to light. ENT: Pharynx normal. Neck: Normal inspection. Neck supple. No lymph nodes noted. No crepitus CVS: Normal heart rate and rhythm. Pulses normal. Normal S1 and S2 Respiratory: No respiratory distress. Breath sounds normal. No Wheezing. No rales Abdomen: Soft and nontender. No rigidity. No distention. Skin: Skin warm and dry. Normal skin color. Normal skin turgor. Extremities: No lower extremity edema. No Lacerations. No Rash Neuro: Oriented X 3. No motor deficit. No sensory deficit. Moving all extremities. No slurred speech. CN 2 through 12 grossly intact Psych: anxious, seems a bit confused, tearful Vital Signs: Vital Signs: Last Vital Signs Temp 98.3 F 02/22/25 00:14 Pulse 90 02/22/25 01:40 Resp 16 02/22/25 00:14 BP 220/123 H 02/22/25 01:40 Pulse Ox 96 02/22/25 00:14 O2 Del Method Room Air 02/22/25 00:14 BMI result Body Mass Index 41.6 Course Course Course Narrative: 34 yo female with PMH of DM, HTN not on any medications for many weeks who states at 5 hours she was at rest and states her whole entire head hurts and she has nausea. She continues to state I don't feel good She denies recent trauma. She has no obvious deficits in triage. She is not on blood thinners. No fevers. She is very vague. I have ordered CT head/labs/EKG. Hx of ICU stay with uncontrolled HTN this is a RAPID medical screening exam the rest of the history and physical exam is to be done by the main provider. PHILIPP 02/21/25 1050pm Medications Administered Generic Name Dose Route Start Last Admin Trade Name Freq PRN Reason Stop Dose Admin Nicardipine HCl 25 mg/ Sodium 250 mls @ 0 mls/hr 02/22/25 01:15 02/22/25 01:40 Chloride IVCONT 7.5 mg/hr .Q0M JORDAN 75 mls/hr Protocol Titration Per Protocol Discontinued Medications Generic Name Dose Route Start Last Admin Trade Name Freq PRN Reason Stop Dose Admin Hydralazine HCl 10 mg 02/22/25 00:19 02/22/25 00:26 Hydralazine Hcl 20 Mg/Ml Vial IVPUSH 02/22/25 00:20 10 mg ONCE ONE Administration Protocol Labetalol HCl 10 mg 02/21/25 23:03 02/21/25 23:09 Labetalol Hcl 100 Mg/20 Ml Vial IVPUSH 02/21/25 23:04 10 mg ONCE ONE Administration Morphine Sulfate 2 mg 02/21/25 23:09 02/21/25 23:31 Morphine Sulfate 2 Mg/Ml Cartridge IVPUSH 02/21/25 23:10 2 mg ONCE ONE Administration Protocol Nitroglycerin 1 inch 02/22/25 00:25 02/22/25 00:33 Nitroglycerin 2 % Oint 1 Gm Packet TRANSDERMA 02/22/25 00:26 1 inch ONCE ONE Administration Ondansetron HCl 4 mg 02/21/25 23:09 02/21/25 23:31 Ondansetron Hcl 4 Mg/2 Ml Vial IVPUSH 02/21/25 23:10 4 mg ONCE ONE Administration Medical Decision Making Medical Decision Making [facility] Narrative: all of patient's la2bs and imaging pending. Patient has a blood pressure of 215/25, rechecked, 128 systolic., heart rate between 70 and 90, sinus I reviewed patient's records From previous admissions. In November of 2023, almost a year ago, patient presented in the same way. Patient had encephalopathy secondary to hypertensive emergency. To the on arrival, patient admitted that she has been out of blood pressure meds for several months my interpretation of EKG: Normal sinus rhythm, heart rate 64, no ST segment depression or elevation, no T-wave inversion, QTC 451 patient is receiving 10 mg of IV labetalol. my interpretation of labs: Patient's white blood cell count is 16.6. Patient has chronic leukocytosis, no acute changes. Chemistry within normal limits, normal LFTs, normal troponin, normal lipase, hCG negative, urinalysis negative for UT, urine positive for opiates and marijuana. Patient was given IV morphine prior to getting the urine sample. CT scan does not show any acute abnormality, no acute intracranial abnormality after IV labetalol, patient received IV hydralazine, nitro paste patch, patient's blood pressure started to 20s. Unlikely that any p.o. medications we will have any significant effect. Patient was started on nicardipine drip I discussed the patient with Dr. Khan from Intensive Care, patient being admitted to the ICU Differential Diagnosis Differential Diagnoses: The differential diagnosis associated with the presentation includes ( hypertensive urgency, hypertensive emergency, intracranial bleed, malignant hypertension) Admission/Observation Consideration of admission/observation: Escalation of care including admission/observation considered Consult Healthcare Provider Management of the patient was discussed with: [employer]em[employer] Analyst Lab Data [facility] Lab Attestation statement: I reviewed the patient's lab results. 02/21/25 23:00 02/21/25 23:00 Labs: Lab Results 02/21/25 02/22/25 Range/Units 23:00 00:48 WBC 16.6 H (4.8-10.8) X10*3/uL RBC 4.21 (4.20-5.50) X10*6/uL Hgb 12.5 (12.0-16.0) g/dl Hct 36.6 L (37.0-47.0) % MCV 86.9 (80.0-98.0) fL MCH 29.7 (27.0-33.0) pg MCHC 34.2 (31.0-35.0) g/dl RDW 13.0 (11.0-16.0) % Plt Count 296 (160-400) X10*3/uL MPV 9.4 (9.4-12.3) fL Immature Gran % (Auto) 0.4 (0.0-0.4) % Neut % (Auto) 81.6 H (45-73) % Lymph % (Auto) 11.7 L (20-40) % [place] % (Auto) 4.5 (2-11) % Eos % (Auto) 1.3 (0-4) % Baso % (Auto) 0.5 (0-2) % Lymph # (Auto) 2.0 (1.2-4.9) X10*3/uL [place] # (Auto) 0.7 (0.1-1.2) X10*3/uL Eos # (Auto) 0.2 (0.0-0.4) X10*3/uL Baso # (Auto) 0.1 (0.0-0.2) X10*3/uL Abs Immat Gran (auto) 0.06 H (0.00-0.03) X10*3/uL Absolute Neuts (auto) 13.6 H (2.0-8.3) x10*3/uL Absolute Nucleated RBC 0.000 (0.0-0.012) X10*3/uL Nucleated RBC % (auto) 0.0 (0.0-0.2) /100WBC Sodium 139 (135-145) mmol/L Potassium 3.8 (3.3-5.1) mmol/L Chloride 102 (96-108) mmol/L Carbon Dioxide 25 (22-29) mmol/L Anion Gap 16 (12-20) BUN 13 (9-16) mg/dL Creatinine 1.20 (0.5-1.4) mg/dL Estim Creat Clear Calc 81.3 Estimated GFR 51 Random Glucose 163 H (60-115) mg/dL Calcium 10.3 H (8.4-10.2) mg/dL Magnesium 1.8 (1.6-2.6) mg/dL Total Bilirubin 0.4 (0.0-1.0) mg/dL Direct Bilirubin 0.1 (0.0-0.5) mg/dL AST 27 (5-31) U/L ALT 15 (0-31) U/L Alkaline Phosphatase 111 (39-117) U/L Troponin I High Sens 13.2 D (<3.5-17.0) ng/L Total Protein 8.0 (6.5-8.0) g/dL Albumin 4.7 (3.5-5.0) g/dL Lipase 12 (8-78) U/L Beta HCG, Quant < 2 mIU/mL Urine Color Yellow Urine Appearance Clear Urine pH 6.0 (5.0-9.0) Ur Specific [place] 1.010 (1.005-1.025) Urine Protein Trace (Neg-Trace) mg/dL Urine Glucose (UA) 100 H (Negative) mg/dL Urine Ketones Negative (Negative) mg/dL Urine Blood Negative (Negative) Urine Nitrite Negative (Negative) Ur Leukocyte Esterase Negative (Negative) Urine Opiates Screen POSITIVE H (Not Detect) Ur Buprenorphine Scrn Not Detected (Not Detect) ng/mL Ur Oxycodone Screen Not Detected (Not Detect) ng/mL Urine Methadone Screen Not Detected (Not Detect) ng/mL Urine Fentanyl Screen Not Detected (Not Detect) Ur Barbiturates Screen Not Detected (Not Detect) Ur Phencyclidine Scrn Not Detected (Not Detect) Ur Amphetamines Screen Not Detected (Not Detect) U Benzodiazepines Scrn Not Detected (Not Detect) Urine Cocaine Screen Not Detected (Not Detect) U Marijuana (THC) Screen POSITIVE H (Not Detect) Independent Interpretation I performed an independent interpretation of an: EKG and CT Scan Interpretation: my interpretation of EKG: Normal sinus rhythm, heart rate 64, no ST segment depression or elevation, no T-wave inversion, QTC 451 Radiology Impression Discussion of test interpretation with radiology: I have reviewed the radiologist's reading. Radiologist Impression: No acute intracranial hemorrhage, accounting for artifacts. No midline shift or hydrocephalus. No large arterial territorial infarction by CT, with artifacts. Vascular calcifications noted. Metal artifacts including from imaged ear rings. Partially empty sella by CT. Mild mucosal thickening of the imaged paranasal sinuses. Imaged nasal septum deviates to the right. Trace right mastoid effusion. No acute skull fracture. External Record Review External record reviewed: Inpatient record in November of 2023, patient presented the same, with encephalopathy and hypertensive emergency. Patient needed IV medications and ICU admission. Chronic Conditions Patient?s care impacted by: Other ( Hypertension) Social Determinants Patient?s care significantly limited by Social Determinants of Health including: Other Social Determinant of Health ( medication noncompliance) Critical Care Time Critical Care Time Critical Care Time: Yes Total Critical Care Time: 60 Attestation: I have personally provided critical care time. Time includes review of lab data, radiology results, discussion with consultants, and monitoring for potential decompensation. Intervention performed as documented. Discharge Plan Discharge Clinical Impression: Hypertensive emergency, Encephalopathy Patient Disposition: Admitted As Inpatient Print Language: Greenlandic
[2025-02-21 23:04] LABS: MANUAL DIFF FLAG NO
[2025-02-21 23:07] LABS: Hematocrit 36.6 % (37.0-47.0); Hemoglobin 12.5 g/dl (12.0-16.0); Imm Gran Abs Auto 0.06 X10*3/uL (0.00-0.03); Imm Gran Pct Auto 0.4 % (0.0-0.4); Lymphocytes Absolute Auto 2.0 X10*3/uL (1.2-4.9); Mean Corpuscular HGB Conc 34.2 g/dl (31.0-35.0); Mean Corpuscular Hemoglobin 29.7 pg (27.0-33.0); Mean Corpuscular Volume 86.9 fL (80.0-98.0); NRBC Abs Auto 0.000 X10*3/uL (0.0-0.012); NRBC Pct Auto 0.0 /100WBC (0.0-0.2); Platelet Count 296 X10*3/uL (160-400); Red Blood Count 4.21 X10*6/uL (4.20-5.50); White Blood Count 16.6 X10*3/uL (4.8-10.8)
[2025-02-21 23:09] VITALS: BP 198/125; PULSE 67
[2025-02-21 23:27] LABS: Troponin-I High Sensitivity 13.2 ng/L (<3.5-17.0)
[2025-02-21 23:29] LABS: Alanine Aminotransferase 15 U/L (0-31); Albumin Level 4.7 g/dL (3.5-5.0); Alkaline Phosphatase 111 U/L (39-117); Anion Gap 16 (12-20); Aspartate Amino Transferase 27 U/L (5-31); Blood Urea Nitrogen 13 mg/dL (9-16); Calcium 10.3 mg/dL (8.4-10.2); Carbon Dioxide 25 mmol/L (22-29); Chloride 102 mmol/L (96-108); Creatinine Clr Calc Pharmacy 81.3; Estimated Glomerular Filt Rate 51; Lipase 12 U/L (8-78); Magnesium 1.8 mg/dL (1.6-2.6); Potassium 3.8 mmol/L (3.3-5.1); Sodium 139 mmol/L (135-145); Total Protein 8.0 g/dL (6.5-8.0)
[2025-02-22] VITALS (37 sets, daily range): BP systolic 140–220; BP diastolic 77–128; PULSE 59–103; RESP 11–23; TEMP 36.7–37.5; O2SAT 93–99; BMI 38.3
--- NOTE | 2025-02-22 00:20 | PC.NURSE ---
dr kirby made aware of bp 204/104 hr 68 awaiting new orders
[2025-02-22] MEDS: Nitroglycerin 2 % Oint 1 GM Packet 1 INCH TRANSDERMA (00:33)
[2025-02-22 00:53] LABS: Appearance Urine Clear; Glucose Urine UA 100 mg/dL (Negative); PH 6.0 (5.0-9.0); Specific Gravity - Urine 1.010 (1.005-1.025)
--- NOTE | 2025-02-22 01:04 | PC.NURSE ---
per dr kirby nicardipine gtt does not need to be infused through central line. full charge bookkeeper made aware
[2025-02-22 01:06] LABS: Cannabinoid Screen Urine POSITIVE (Not Detect)
--- NOTE | 2025-02-22 01:28 | PC.NURSE ---
pt medicated per MAR.
--- NOTE | 2025-02-22 02:12 | PC.NURSE ---
Addendum entered by Jordyn Bonilla RN 02/22/25 02:34: error- carleni keyur Original Note: at this time nitro patch removed and nicardipine gtt reduced to 2.5mg/h per wanda keyur from icu
--- NOTE | 2025-02-22 02:17 | PM.CCHP ---
History of Present Illness Date of Service: 02/22/25 Attending physician on admission: Kory Khan Chief Complaint: AMS The patient 34-year-old female with a past medical history of hypertension (noncompliant with? medications), chronic back pain, and obesity who presented to the emergency department? with altered mental status.? Patient reported she was not feeling well for several hours. Patient complaining of headache, denies neck pain, denies fever chills, no URI symptoms.? Patient states that she has been out of her blood pressure medications for several months. She was also noted to be confused.? Blood pressure was elevated to 215/125, afibrile, HR sinus 62- 80s.? ?Laboratory data only significant for? 16.6 with no bandemia.? IMAGING:? Head CT:? negative for acute findings ?ED course:? ?She received labetalol 10 mg IV push, hydralazine 10 mg IV push, nitro paste 1 in,? morphine 2 mg and Zofran.? ?Despite multiple hypertensive agents,? blood pressure remained high she required Cardene drip Review of Systems Review of Systems: Yes all other systems are reviewed and are negative [facility] Past Medical History Medical History Hypertension Family History Family History Maternal Grandmother History of breast cancer Surgical History Surgical History History of facial surgery H/O tubal ligation History of bunionectomy Social History Social History (Updated 12/04/23 @ 11:31 by Candida Emery DO) Household Members: Children Housing: Apartment Do you presently have visiting nurse or other home services: No Patient Tobacco Use Status: Current everyday Tobacco user Tobacco use type: Cigarette Cigarettes Per Day: 10 Smoked in Last 30 Days: Yes Patient Interested in Nicotine Replacement: Yes Currently Displaying Signs/Symptoms of Drug Intoxication Withdrawal: No Have you been hit, kicked, punched, or otherwise hurt by someone within the past year? If so, by whom?: No Do you feel safe in your current relationship?: No Current Relationship Is there a partner from a previous relationship who is making you feel unsafe now?: No Are you made to feel afraid or neglected: No Advance Directives: No Advance Directives Information Provided: Yes Do you have a plan to hurt others: No Plan Recently lost weight without trying: No Nutrition Risks: No Nutritional Risk Patient : No : No service: No Meds Allergies Allergy/AdvReac Type Severity Reaction Status Date / Time No Known Allergies Allergy Verified 02/21/25 22:51 Active Medications: Current Medications Enoxaparin Sodium (Enoxaparin Sodium 40 Mg/0.4 Ml Syringe) 40 mg SUBCUT Q24H JORDAN Nicardipine HCl 25 mg/ Sodium (Chloride) 250 mls @ 0 mls/hr IVCONT .Q0M JORDAN; Protocol Last Titration: 02/22/25 02:11 Dose: 2.5 mg/hr, 25 mls/hr Physical Exam Exam: Exam: ?General:? Alert oriented x3 no acute distress.? Speaking full sentences. Following all commands. ?HEENT:? Head is normocephalic, atraumatic, pupils equal round reactive to light accommodation bilaterally.? Extraocular movements appear intact.? Buccal mucosa is dry, Neck is supple ?Cardiac:? Clear S1-S2, no murmurs rubs or gallops. ?Pulmonary:? Clear to auscultation, no wheezes, rales or rhonchi. ?Abdomen: ? Abdomen soft, non-tender, non-distended. Normal bowel sounds. No pulsatile mass. No hepatosplenomegaly. ?Musculoskeletal:? Moving all 4 extremities upon request a major joints, there is no crepitus or tenderness.? The strength is 5/5 bilaterally and throughout all 4 extremities.? Gait not assessed at this point. ?Neurologic:? cranial nerves 2-12 are grossly intact.? No focal deficits noted.Motor strength as above.?? ?Skin:? Intact, no lesions, edema, erythema, clubbing or cyanosis.? No ulcers. Vascular:? 2+ pulses upper and lower extremities distally.? Vital Signs: Vital Signs: Last Vital Signs Temp 99.0 F 02/22/25 02:00 Pulse 96 02/22/25 02:11 Resp 16 02/22/25 02:00 BP 145/88 H 02/22/25 02:11 Pulse Ox 99 02/22/25 02:00 O2 Del Method Room Air 02/22/25 02:00 BMI result Body Mass Index 41.6 Results Labs 02/22/25 04:05 02/22/25 04:05 Labs: Laboratory Results - last 24 hr 02/21/25 02/22/25 23:00 00:48 MCV 86.9 MCH 29.7 MCHC 34.2 RDW 13.0 Plt Count 296 MPV 9.4 Immature Gran % (Auto) 0.4 Neut % (Auto) 81.6 H Lymph % (Auto) 11.7 L [place] % (Auto) 4.5 Eos % (Auto) 1.3 Baso % (Auto) 0.5 Lymph # (Auto) 2.0 [place] # (Auto) 0.7 Eos # (Auto) 0.2 Baso # (Auto) 0.1 Abs Immat Gran (auto) 0.06 H Absolute Neuts (auto) 13.6 H Absolute Nucleated RBC 0.000 Nucleated RBC % (auto) 0.0 Anion Gap 16 Estim Creat Clear Calc 81.3 Estimated GFR 51 Random Glucose 163 H Calcium 10.3 H Magnesium 1.8 Total Bilirubin 0.4 Direct Bilirubin 0.1 AST 27 ALT 15 Alkaline Phosphatase 111 Total Protein 8.0 Albumin 4.7 Lipase 12 Beta HCG, Quant < 2 Urine Color Yellow Urine Appearance Clear Urine pH 6.0 Ur Specific [place] 1.010 Urine Protein Trace Urine Glucose (UA) 100 H Urine Ketones Negative Urine Blood Negative Urine Nitrite Negative Ur Leukocyte Esterase Negative Urine Opiates Screen POSITIVE H Ur Buprenorphine Scrn Not Detected Ur Oxycodone Screen Not Detected Urine Methadone Screen Not Detected Urine Fentanyl Screen Not Detected Ur Barbiturates Screen Not Detected Ur Phencyclidine Scrn Not Detected Ur Amphetamines Screen Not Detected U Benzodiazepines Scrn Not Detected Urine Cocaine Screen Not Detected U Marijuana (THC) Screen POSITIVE H Assessment and Plan (1) Hypertensive emergency: Status: Acute Plan ?34-year-old with a past medical history of hypertension noncompliance with medications, chronic back pain and obesity who is admitted to ICU with hypertensive emergency requiring Cardene drip Neuro:? ?Encephalopathy: ? when she 1st arrived to the emergency department patient noted to be slightly confused,? on my assessment she is back to baseline.? Altered mental status likely related to hypertensive emergency.? Now resolved Cardiac:?? ?Hypertensive emergency:? patient?s blood pressure systolics in the 200s? despite administration of multiple IV? hypertensive agents.? Patient? admitted in the past with similar presentation due to medication noncompliance,? she does report not taking medications for ?several months? because ?she does not like how they make her feel?.? Now on Cardene drip with better blood pressure control. Wean off Cardene as tolerated.? Resume oral agents when able Pulmonary:? ??No acute issues Renal:?? ?No acute issues Endo:?No acute issues GI:? ??No acute issues ??ID:?? ?Leukocytosis:? from chart review it appears patient has a chronic leukocytosis no evidence of acute infection at this time Heme/Onc:? No acute issues. Psych:? No acute issues. Misc: no acute issues Prophylaxis:? Lovenox Code? status:? FULL CODE Critical care time: x 30 min of critical care time
--- OUTSIDE RECORDS SUMMARY | 2025-02-22 02:41 | XMS_ITS | Clinical Summary ---
Author Organization [facility] ity Address [address] [place] [address] Care Team Providers Care Golf Instructor Name Role Phone Chuck Her MD Primary Care Provider [phone] Social History Tobacco Use Types Packs/Day Years Used Date Smoking Tobacco: Never Assessed Comments Unknown Sex and Gender Information Value Date Recorded Sex Assigned at Not on file Legal Sex Female 1:00 AM EST Gender Identity Not on file Sexual Orientation Not on file Last Filed Vital Signs Vital Sign Reading Time Taken Comments Blood Pressure 229/148 06/22/2023 3:56 PM EST has not taken bp meds in a while Pulse 85 06/22/2023 3:56 PM EST Temperature - - Respiratory Rate - - Oxygen Saturation - - Inhaled Oxygen Concentration - - Weight 106 kg (234 lb) 10/04/2023 10:22 AM EDT Height 156.2 cm (5' 1.5 ) 06/22/2023 3: 56 PM EST Body Mass Index 43.5 06/22/2023 3:56 PM EST Plan of Treatment Health Maintenance Due Date Last Done Comments DTaP,Tdap,and Td Vaccines (1 - Tdap) 2007 Hepatitis B Vaccines (1 of 3 - 19+ 3-dose series) 2007 Cervical Cancer Screening: P ap Smear 2009 HIV Screening 05/14/2024 Hepatitis C Screening 05/14/2024 Social Influencers of Health Screening 05/14/2024 Depression Screening 06/19/2024 COVID-19 Vaccine (1 - 2023-2 5 season) 2025 Influenza Vaccine (#1) 2025 HIB Vaccines Aged Out No longer eligi ble based on patient's age to complete this topic HPV Vaccines Aged Out No longer eligi ble based on patient's age to complete this topic Hepatitis A Vaccines Aged Out No long er eligible based on patient's age to complete this topic IPV Vaccines Aged Out No longer eligi ble based on patient's age to complete this topic MMR Vaccines Aged Out No longer eligi ble based on patient's age to complete this topic Meningococcal ACWY Vaccine Aged Out N o longer eligible based on patient's age to complete this topic Meningococcal B Vaccine Aged Out No l onger eligible based on patient's age to complete this topic Pneumococcal Vaccine: Pediat rics (0 to 5 Years) and At-Risk Patients (6 to 49 Years) Aged Out No longer eligible b ased on patient's age to complete this topic RSV Immunization Patients Un sherrie 20 months Aged Out No longer eligible b ased on patient's age to complete this topic Varicella Vaccines Aged Out No longer eligible based on patient's age to complete this topic Care Teams Golf Instructor Relationship Specialty Start Date End Date Chuck Her MD [address] [place] [address] Dr Mirela MA PCP - General 04/10/23
--- OUTSIDE RECORDS SUMMARY | 2025-02-22 02:41 | XMS_ITS | Clinical Summary ---
Author Organization [employer] Address [address] [place] [address] Care Team Providers Care Laundry Equipment Operator Name Role Phone Unavailable Primary Care Provider Unavailabl e Encounters Date Type Department Care Team Description 02/10/2025 Telephone [facility] [address] [place] [address] Hector Hwang MD Appointment Request from Last 3 Months Social History Tobacco Use Types Packs/Day Years Used Date Smoking Tobacco: Never Assessed Comments Unknown Sex and Gender Information Value Date Recorded Sex Assigned at Not on file Legal Sex Female 1:10 PM EDT Gender Identity Not on file Sexual Orientation Not on file Plan of Treatment Health Maintenance Due Date Last Done Comments Depression Screening 1988 HIV Screening 1988 SDOH Screening 1988 Disability Screening 1988 Alcohol/Substance Use Screening 2000 Tobacco Screening 2000 Family Planning (PISQ) 2003 HPV Vaccines (1 - 3-dose series) 2003 Hepatitis C Screening 2006 DTaP/Tdap/Td Vaccines (1 - Tdap) 2007 Hepatitis B Vaccines (1 of 3 - 19+ 3-dose series) 2007 Pap Smear 2009 Cervical Cancer Screening 2018 HPV/Cotest 2018 COVID-19 Vaccine (1 - 2023-2 5 season) 2025 Influenza Vaccine (#1) 2025 Zoster Vaccines (1 of 2) 2038 RSV Patients and Pa tients Aged 60 years or older (1 - 1-dose 75+ series) 2063 HIB Vaccines Aged Out No longer eligi [...] patient's age to complete this topic Meningococcal Vaccine Aged Out No usha lisa eligible based on patient's age to complete this topic Pneumococcal Vaccine: Pediat rics (0 to 5 Years) and At-Risk Patients (6 to 49) Years Aged Out No longer eligible b ased on patient's age to complete this topic RSV under 20 months Aged Out No longe r eligible based on patient's age to complete this topic Rotavirus Vaccines Aged Out No longer eligible based on patient's age to complete this topic Insurance [facility] C[facility]
[2025-02-22 04:22] LABS: MANUAL DIFF FLAG NO
[2025-02-22 04:23] LABS: Hematocrit 36.7 % (37.0-47.0); Hemoglobin 12.4 g/dl (12.0-16.0); Imm Gran Abs Auto 0.08 X10*3/uL (0.00-0.03); Imm Gran Pct Auto 0.5 % (0.0-0.4); Lymphocytes Absolute Auto 1.3 X10*3/uL (1.2-4.9); Mean Corpuscular HGB Conc 33.8 g/dl (31.0-35.0); Mean Corpuscular Hemoglobin 29.0 pg (27.0-33.0); Mean Corpuscular Volume 85.7 fL (80.0-98.0); NRBC Abs Auto 0.000 X10*3/uL (0.0-0.012); NRBC Pct Auto 0.0 /100WBC (0.0-0.2); Platelet Count 290 X10*3/uL (160-400); Red Blood Count 4.28 X10*6/uL (4.20-5.50); White Blood Count 17.5 X10*3/uL (4.8-10.8)
[2025-02-22 04:36] LABS: Albumin Level 4.6 g/dL (3.5-5.0); Anion Gap 16 (12-20); Blood Urea Nitrogen 12 mg/dL (9-16); Calcium 11.0 mg/dL (8.4-10.2); Carbon Dioxide 23 mmol/L (22-29); Chloride 103 mmol/L (96-108); Creatinine Clr Calc Pharmacy 88.0; Estimated Glomerular Filt Rate 59; Magnesium 1.8 mg/dL (1.6-2.6); Potassium 3.9 mmol/L (3.3-5.1); Sodium 138 mmol/L (135-145)
--- NOTE | 2025-02-22 07:12 | PC.NURSE ---
Critical Care Nursing Note Patient arrived from the ED at 0315 via stretcher.? On arrival, the patient's nicardipine drip was infusing at a rate of 2.5 mg/hr: titration goal SBP of <160. Patient alert and oriented, expresses needs appropriately. Patient OOB to bedside commode.
--- NOTE | 2025-02-22 07:26 | PHA.MEDREC ---
Pharmacy Consult ? Medication Reconciliation Pharmacy has completed the medication reconciliation. Patient has no claim history since June 2024. Per patient on admission has been out of medications for months.
[2025-02-22 07:54] LABS: Hemoglobin A1C 134.9796 umol/L; Total Hemoglobin (HGBA1C) 3289.5018 umol/L
[2025-02-22] MEDS: Sodium,Potassium Phosphates POWD.PACK 2 PACKET PO (08:01)
--- NOTE | 2025-02-22 08:29 | PC.NURSE ---
Assessed patient at beginnig of shift. patient asleep, but wakes spontaneously. alert and oriented, calm and cooperative with care, states she wants to go home, states she does not want to eat breakfast because it is too bland. Patient blood pressures still elevated requiring titrations, Nicardipine titrated up per MAR, blood pressures appear to go up with patient becoming more wakeful and active in bed. PO blood pressure medications started today with nicardipine drip still infusing. Patient woke-up with reports of 10/10 persistent headache. Reports minimal effect from tylenol given at 0450 (see MAR). Messaged provider about patient pain level and Tylenol not being due until 10:50. MD stated can give Tylenol again early. RN educated about headache and pain being related to persistently high BPs and educated on importance of resuming cardiac mediations outside the hospital setting. patient receptive to teaching stating she will if she needs to.
[2025-02-22 10:40] LABS: Glucose, Whole Blood 147 mg/dL (60-115)
--- NOTE | 2025-02-22 13:05 | PC.NURSE ---
EVENT NOTE: At approximately 0930 Cardene gtt paused per MD. Patient calm, cooperative and asymptomatic.? At 0945 patient rolling around in bed, and sitting up at the edge of bed, restless, crying, holding head, reporting 10/10 pain, with nausea and emesis x1, stating she does not feel right. RN to bedside to help patient back supine position with head of bed at 50 degrees.? MD made aware of patient presentation, new pain medication ordered, see AUG.? At 0950 the patient was very lethargic, and arousable to firm touch or pain, unable to track. Intermittently able to follow commands and keep eyes open. Patient started to show unilateral symptoms such as: right sided facial droop when smiling and right arm drift seen when holding both arms straight overhead. At this time the patient was unable to state her last name, speech was slurred, patient had difficulty word finding, and 1 more bout of emesis. Patient was laying supine in high fowlers with arms by her side when undisturbed, eyes closed.? made aware of patient presentation, provider to the bedside with RN, stated to get head CT STAT.? At approximately 10:30 Patient transported with CCT and this RN to ED CT scanner. Oxygen tank brought with NRB, but patient sats remained high 90s through transport. Zoll utilized for monitoring in transport. The patient remained lethargic until after CT, however when being slid back to bed from the scanner showed wakefulness and equal strength bilaterally.? At 10:50 Arrived back to ICU. On assessment, patient's neuro symptoms were resolved, able to fully reposition in bed, strength was normal, speech was normal, only remaining symptoms being persistent mild headache and limited recollection of the previous hour.? (See Vitals) (See MAR) POC obtained 147. Medications reviewed: patient received lovenox this morning. Stroke team messaged on [employer]eed[employer]. Perform and Document: Q2HR Neuros (until otherwise directed by provider or until transfer from ICU) Stroke Education? Swallow Screen
[2025-02-22 16:17] LABS: Glucose, Whole Blood 154 mg/dL (60-115)
[2025-02-22 20:35] LABS: Glucose, Whole Blood 129 mg/dL (60-115)
[2025-02-23] VITALS (23 sets, daily range): BP systolic 113–173; BP diastolic 70–119; PULSE 47–84; RESP 12–20; TEMP 36.1–37.1; O2SAT 92–99
[2025-02-23] MEDS: 0.9 % Sodium Chloride Flush 3 ML SYRINGE IVFLUSH ×4 (00:30→19:54)
[2025-02-23 05:35] LABS: Hematocrit 34.6 % (37.0-47.0); Hemoglobin 11.7 g/dl (12.0-16.0); Imm Gran Abs Auto 0.03 X10*3/uL (0.00-0.03); Imm Gran Pct Auto 0.3 % (0.0-0.4); Lymphocytes Absolute Auto 2.6 X10*3/uL (1.2-4.9); MANUAL DIFF FLAG NO; Mean Corpuscular HGB Conc 33.8 g/dl (31.0-35.0); Mean Corpuscular Hemoglobin 29.3 pg (27.0-33.0); Mean Corpuscular Volume 86.7 fL (80.0-98.0); NRBC Abs Auto 0.000 X10*3/uL (0.0-0.012); NRBC Pct Auto 0.0 /100WBC (0.0-0.2); Platelet Count 269 X10*3/uL (160-400); Red Blood Count 3.99 X10*6/uL (4.20-5.50); White Blood Count 9.3 X10*3/uL (4.8-10.8)
[2025-02-23 05:48] LABS: Albumin Level 4.0 g/dL (3.5-5.0); Anion Gap 13 (12-20); Blood Urea Nitrogen 16 mg/dL (9-16); Calcium 10.2 mg/dL (8.4-10.2); Carbon Dioxide 25 mmol/L (22-29); Chloride 104 mmol/L (96-108); Creatinine Clr Calc Pharmacy 75.8; Estimated Glomerular Filt Rate 49; Magnesium 2.2 mg/dL (1.6-2.6); Potassium 3.5 mmol/L (3.3-5.1); Sodium 138 mmol/L (135-145)
[2025-02-23 07:28] LABS: Glucose, Whole Blood 136 mg/dL (60-115)
--- NOTE | 2025-02-23 08:40 | ECG_ITS ---
Test Reason : Bradycardia Blood Pressure : */* mmHG Vent. Rate : 44 BPM Atrial Rate : 44 BPM P-R Int : 134 ms QRS Dur : 86 ms QT Int : 492 ms P-R-T Axes : 24 -7 18 degrees QTcB Int : 420 ms Marked sinus bradycardia with sinus arrhythmia Moderate voltage criteria for LVH, may be normal variant ( R in aVL , Quinten product ) Nonspecific T wave abnormality Abnormal ECG When compared with ECG of 21-Feb-2025 23:12, T wave inversion more evident in Inferior leads T wave inversion now evident in Lateral leads Referred By: Kory Khan Electronically Signed By: MORELIA CUNHA MD
--- NOTE | 2025-02-23 10:32 | P.PNCC_ITS ---
Subjective Subjective Date of Service: 02/23/25 Interval History: 34-year-old lady with underlying history of hypotension with poor compliance with medications admitted on 02/22/2025 with hypertensive emergency and PRES with resolution of symptoms on Cardene drip. Patient has been titrated off Cardene drip with no recurrence of her PRES symptoms. Critical Care Time (minutes): 0 Physical Exam 2 Vital Signs: Vital Signs: Last Vital Signs Temp 97.6 F 02/23/25 08:00 Pulse 57 02/23/25 10:00 Resp 12 02/23/25 10:00 BP 159/99 H 02/23/25 10:00 Pulse Ox 98 02/23/25 10:00 O2 Del Method Room Air 02/23/25 10:00 BMI result Body Mass Index 38.3 Const: General: no acute distress, alert and awake Eyes: Sclerae: sclerae normal EOM: EOMs intact bilaterally Neck: Neck: Yes no lymphadenopathy, Yes trachea midline and Yes supple Resp: Effort & Inspection: normal respiratory effort and no respiratory distress Auscultation: clear to auscultation bilaterally Cardio: Rate: regular rate Rhythm: regular rhythm Heart sounds: no gallops, no murmurs and no rubs GI: Palpation (GI): Soft to palpation and Other GI palpation findings present ( Nontender) Auscultation: normal bowel sounds Extrem: General: Yes no pedal edema, No clubbing and No cyanosis Objective Data Labs 02/23/25 05:30 02/23/25 05:30 Labs: Laboratory Results - last 24 hr 02/22/25 02/22/25 02/22/25 10:33 16:14 20:32 WBC RBC Hgb Hct MCV MCH MCHC RDW Plt Count MPV Immature Gran % (Auto) Neut % (Auto) Lymph % (Auto) [place] % (Auto) Eos % (Auto) Baso % (Auto) Lymph # (Auto) [place] # (Auto) Eos # (Auto) Baso # (Auto) Abs Immat Gran (auto) Absolute Neuts (auto) Absolute Nucleated RBC Nucleated RBC % (auto) Sodium Potassium Chloride Carbon Dioxide Anion Gap BUN Creatinine Estim Creat Clear Calc Estimated GFR POC Glucose 147 H 154 H 129 H Random Glucose Calcium Phosphorus Magnesium Albumin 02/23/25 02/23/25 05:30 07:24 WBC 9.3 RBC 3.99 L Hgb 11.7 L Hct 34.6 L MCV 86.7 MCH 29.3 MCHC 33.8 RDW 13.2 Plt Count 269 MPV 9.3 L Immature Gran % (Auto) 0.3 Neut % (Auto) 60.7 Lymph % (Auto) 27.7 [place] % (Auto) 8.5 Eos % (Auto) 2.3 Baso % (Auto) 0.5 Lymph # (Auto) 2.6 [place] # (Auto) 0.8 Eos # (Auto) 0.2 Baso # (Auto) 0.1 Abs Immat Gran (auto) 0.03 Absolute Neuts (auto) 5.6 Absolute Nucleated RBC 0.000 Nucleated RBC % (auto) 0.0 Sodium 138 Potassium 3.5 Chloride 104 Carbon Dioxide 25 Anion Gap 13 BUN 16 Creatinine 1.23 Estim Creat Clear Calc 75.8 Estimated GFR 49 POC Glucose 136 H Random Glucose 135 H Calcium 10.2 D Phosphorus 3.7 Magnesium 2.2 Albumin 4.0 Progress Note: A&P Assessment and plan (1) Hypertensive emergency: Status: Acute (2) PRES (posterior reversible encephalopathy syndrome): Status: Acute Plan Assessment: 33-year-old lady admitted with acute encephalopathy and hypertensive emergency Plan: Neuro: PRES resolved with improvement in hypotension. Cardiac: Hypertensive emergency on the background of noncompliance with antihypertensive regimen. Titrated off Cardene drip. Continue lisinopril, spironolactone, amlodipine, and clonidine. May benefit from further workup for secondary causes of hypertension. Pulmonary: No acute issues. Renal: No acute issues. Endo: No acute issues. GI: No acute issues. ID: No acute issues. Heme/Onc: No acute issues. Psych: No acute issues. Miscellaneous: No acute issues. Prophylaxis: Heparin Diet: Regular Quality Stroke Does the patient have a stroke diagnosis?: No VTE Prior VTE?: No VTE Risk Level:: Medical - moderate - high VTE Device Contraindication: Treatment Not Indicated VTE Drug Contraindication: N/A - Med Ordered
--- NOTE | 2025-02-23 11:51 | HO.PM.IMPN ---
Subjective Subjective Date of Service: 02/23/25 Interval History: Appears hemodynamically stable neurologically intact, no further cardiac Review of Systems Review of Systems: Yes all other systems are reviewed and are negative Physical Exam Exam: Exam: General: AOx3, morbidly obese, no acute distress Resp: CTA bilaterally CVS: S1, S2, RRR GI: +BS, NT, no distention Skin: Warm, dry Neuro: Cranial nerves II-XII grossly intact bilaterally. Motor grossly intact bilaterally Extremities: No edema Psych: Tearful about her health Vital Signs: Vital Signs: Last Vital Signs Temp 97.6 F 02/23/25 08:00 Pulse 47 L 02/23/25 10:58 Resp 14 02/23/25 10:58 BP 155/109 H 02/23/25 10:58 Pulse Ox 98 02/23/25 10:58 O2 Del Method Room Air 02/23/25 10:58 BMI result Body Mass Index 38.3 Objective Data Active Medications Acetaminophen (Acetaminophen 325 Mg Tablet) 650 mg PO Q6H PRN PRN Reason: Pain, Mild 1-3,fever,headache Last Admin: 02/23/25 08:04 Dose: 650 mg Documented By: LUIS Amlodipine Besylate (Amlodipine Besylate 10 Mg Tablet) 10 mg PO DAILY [facility]; Protocol Last Admin: 02/23/25 08:05 Dose: 10 mg Documented By: LUIS Clonidine HCl (Clonidine Hcl 0.2 Mg Tablet) 0.2 mg PO BID [facility]; Protocol Last Admin: 02/23/25 08:05 Dose: 0.2 mg Documented By: LUIS Enoxaparin Sodium (Enoxaparin Sodium 40 Mg/0.4 Ml Syringe) 40 mg SUBCUT Q24H [facility] Last Admin: 02/23/25 08:04 Dose: 40 mg Documented By: LUIS Insulin Human Lispro (Insulin Lispro 100 Unit/Ml 3 Ml Vial) 0 unit SUBCUT QIDACHS [facility]; Protocol Last Admin: 02/23/25 07:41 Dose: Not Given Documented By: LUIS Non-Admin Reason: No Insulin Coverage Ketorolac Tromethamine (Ketorolac Tromethamine 15 Mg/Ml Vial) 15 mg IVPUSH Q6H PRN PRN Reason: Pain, Moderate(Pain Scale 4-6) Last Admin: 02/23/25 05:57 Dose: 15 mg Documented By: CARLITA Lisinopril (Lisinopril 40 Mg Tablet) 40 mg PO DAILY [facility]; Protocol Last Admin: 02/23/25 08:05 Dose: 40 mg Documented By: LUIS Sodium Chloride (0.9 % Sodium Chloride Flush 3 Ml Syringe) 3 ml IVFLUSH QSHIFT [facility] Last Admin: 02/23/25 08:01 Dose: 3 ml Documented By: LUIS Spironolactone (Spironolactone 25 Mg Tablet) 25 mg PO BID@0900,1800 [facility]; Protocol Last Admin: 02/23/25 08:05 Dose: 25 mg Documented By: LUIS Labs 02/23/25 05:30 02/23/25 05:30 Labs: Laboratory Results - last 24 hr 02/22/25 02/22/25 02/23/25 16:14 20:32 05:30 MCV 86.7 MCH 29.3 MCHC 33.8 RDW 13.2 Plt Count 269 MPV 9.3 L Immature Gran % (Auto) 0.3 Neut % (Auto) 60.7 Lymph % (Auto) 27.7 [place] % (Auto) 8.5 Eos % (Auto) 2.3 Baso % (Auto) 0.5 Lymph # (Auto) 2.6 [place] # (Auto) 0.8 Eos # (Auto) 0.2 Baso # (Auto) 0.1 Abs Immat Gran (auto) 0.03 Absolute Neuts (auto) 5.6 Absolute Nucleated RBC 0.000 Nucleated RBC % (auto) 0.0 Anion Gap 13 Estim Creat Clear Calc 75.8 Estimated GFR 49 POC Glucose 154 H 129 H Random Glucose 135 H Calcium 10.2 D Phosphorus 3.7 Magnesium 2.2 Albumin 4.0 02/23/25 07:24 MCV MCH MCHC RDW Plt Count MPV Immature Gran % (Auto) Neut % (Auto) Lymph % (Auto) [place] % (Auto) Eos % (Auto) Baso % (Auto) Lymph # (Auto) [place] # (Auto) Eos # (Auto) Baso # (Auto) Abs Immat Gran (auto) Absolute Neuts (auto) Absolute Nucleated RBC Nucleated RBC % (auto) Anion Gap Estim Creat Clear Calc Estimated GFR POC Glucose 136 H Random Glucose Calcium Phosphorus Magnesium Albumin Assessment and Plan (1) Hypertensive emergency: Status: Acute Plan Patient is a 34-year-old female who presented to the ED due to hypertensive emergency with symptoms of confusion and headache, likely in the setting of noncompliance to antihypertensive medication reports feeling dizzy? # hypertensive emergency /encephalopathy #PRES # medication noncompliance due to side effects-feeling dizzy She was managed in the ICU for a day and was stabilized on Cardene drip. We will continue her lisinopril, amlodipine, spironolactone, and we will initiate clonidine during this admission Patient reports she will continue to take her meds now as she is about to be a grand mal Tele Daily labs DM type 2 Morbid obesity Insulin sliding scale for now Diabetic diet Metformin p.o. b.i.d. manager of digital consulted for establishing a primary care and getting her situated She would like to receive a letter at the time of discharge . Lovenox for DVT prophylaxis This note is constructed using voice recognition software. While every effort has been made to ensure accuracy, harbormaster errors may have been included. Quality Stroke Does the patient have a stroke diagnosis?: No VTE Prior VTE?: No VTE Risk Level:: Medical - moderate - high VTE Device Contraindication: Treatment Not Indicated VTE Drug Contraindication: N/A - Med Ordered
[2025-02-23 13:14] LABS: Glucose, Whole Blood 111 mg/dL (60-115)
--- NOTE | 2025-02-23 14:18 | PC.NURSE ---
This morning patient's heart rate fluctuating and sustaining <60, going as low as 37bpm. EKG performed. Patient now in sinus rhythm When compared with yesterday on day-shift, blood pressures improved generally. Patient to be downgraded to Tele.
[2025-02-23 16:04] LABS: Hemoglobin A1C 122.7138 umol/L; Total Hemoglobin (HGBA1C) 3027.7504 umol/L
[2025-02-23 16:52] LABS: Glucose, Whole Blood 108 mg/dL (60-115)
[2025-02-23 21:17] LABS: Glucose, Whole Blood 165 mg/dL (60-115)
[2025-02-23 22:36] LABS: Glucose, Whole Blood 140 mg/dL (60-115)
[2025-02-24 00:23] VITALS: BP 152/102; PULSE 61; RESP 16; TEMP 37.6; O2SAT 94
[2025-02-24 03:42] VITALS: BP 162/88; PULSE 84; RESP 16; TEMP 36; O2SAT 93
[2025-02-24 06:45] LABS: MANUAL DIFF FLAG NO
[2025-02-24 07:02] LABS: Hematocrit 36.9 % (37.0-47.0); Hemoglobin 12.3 g/dl (12.0-16.0); Imm Gran Abs Auto 0.04 X10*3/uL (0.00-0.03); Imm Gran Pct Auto 0.4 % (0.0-0.4); Lymphocytes Absolute Auto 2.5 X10*3/uL (1.2-4.9); Mean Corpuscular HGB Conc 33.3 g/dl (31.0-35.0); Mean Corpuscular Hemoglobin 29.4 pg (27.0-33.0); Mean Corpuscular Volume 88.3 fL (80.0-98.0); NRBC Abs Auto 0.000 X10*3/uL (0.0-0.012); NRBC Pct Auto 0.0 /100WBC (0.0-0.2); Platelet Count 273 X10*3/uL (160-400); Red Blood Count 4.18 X10*6/uL (4.20-5.50); White Blood Count 9.1 X10*3/uL (4.8-10.8)
[2025-02-24 07:06] LABS: Alanine Aminotransferase 16 U/L (0-31); Albumin Level 4.0 g/dL (3.5-5.0); Alkaline Phosphatase 94 U/L (39-117); Anion Gap 12 (12-20); Aspartate Amino Transferase 22 U/L (5-31); Blood Urea Nitrogen 23 mg/dL (9-16); Calcium 10.2 mg/dL (8.4-10.2); Carbon Dioxide 26 mmol/L (22-29); Chloride 105 mmol/L (96-108); Creatinine Clr Calc Pharmacy 79.7; Estimated Glomerular Filt Rate 52; Magnesium 2.2 mg/dL (1.6-2.6); Potassium 3.8 mmol/L (3.3-5.1); Sodium 139 mmol/L (135-145); Total Protein 7.0 g/dL (6.5-8.0)
[2025-02-24 07:35] LABS: Glucose, Whole Blood 131 mg/dL (60-115)
[2025-02-24 07:36] VITALS: BP 150/86; PULSE 52; RESP 20; TEMP 36.3; O2SAT 98
--- NOTE | 2025-02-24 10:48 | P.DS_ITS ---
DS: Providers Provider Date of Service: 02/24/25 Date of admission: 02/22/25 02:37 Date of discharge: 02/24/25 Primary care physician: Unknown Physician DS: Diagnosis Discharge Diagnosis (1) Hypertensive emergency: Status: Acute DS: Summary Hospital Course Hospital Course: History and physical as per admitting provider. The patient 34-year-old female with a past medical history of hypertension (noncompliant with? medications), chronic back pain, and obesity who presented to the emergency department? with altered mental status.? Patient reported she was not feeling well for several hours. Patient complaining of headache, denies neck pain, denies fever chills, no URI symptoms.? Patient states that she has been out of her blood pressure medications for several months. She was also noted to be confused.? Blood pressure was elevated to 215/125, afibrile, HR sinus 62- 80s.?Laboratory data only significant for? 16.6 with no bandemia.?IMAGING:?Head CT:? negative for acute findings ED course: She received labetalol 10 mg IV push, hydralazine 10 mg IV push, nitro paste 1 in,? morphine 2 mg and Zofran.?Despite multiple hypertensive agents,? blood pressure remained high she required Cardene drip 34-year-old woman admitted to the ICU initially with hypertensive emergency and press requiring vaso depressive medications. Patient titrated off Cardene drip with no reoccurrence of press symptoms. Patient reported that she had not been taking her blood pressure medications for many months. Patient was started on amlodipine 10 mg daily, lisinopril 40 mg daily, spironolactone 25 mg b.i.d. and clonidine 0.2 mg b.i.d.. It was stressed to the patient how important it was for her to take her medications as prescribed. She should also be checking her blood pressures daily, documenting and sharing with the primary care provider. Discussion regarding weight loss, diet and exercise recovered and reiterated that these things can help with better blood pressure control. Batsheva's noted to have some elevated blood sugars but her hemoglobin A1c was noted to be 5.9 therefore at this time no need to start on any medications but her A1c should be re-evaluated in 3 months. Severe obesity. BMI 38.3 Discussed importance of weight management as this may be contributing to worsening of other comorbidities Time Attestation Discharge Coordination Time (in mins): 45 Quality: Safe Use of Opioids Does Pt have an Active Cancer Diagnosis on the Problem List?: No Quality: Stroke Does the patient have a stroke diagnosis?: No Physical Exam Exam: Exam: Appearing in no acute distress head is normocephalic atraumatic eyes pupils are PERRLA sclera is anicteric mouth throat mucous membranes are intact and moist neck is supple no lymphadenopathy, no JVD noted lung sounds are clear to auscultation heart regular rate rhythm, clear S1, S2 positive bowel sounds, abdomen is soft, nontender neuro patient is alert x3, no focal deficits Vital Signs: Vital Signs: Last Vital Signs Temp 97.3 F 02/24/25 07:36 Pulse 52 02/24/25 07:36 Resp 20 02/24/25 07:36 BP 150/86 H 02/24/25 07:36 Pulse Ox 98 02/24/25 07:36 O2 Del Method Room Air 02/24/25 07:36 BMI result Body Mass Index 38.3 DS: Data Data Completed and Pending Completed studies during hospitalization [Text1]: Procedures Drainage of Spinal Canal, Percutaneous Approach, Diagnostic (12/04/23) Inspection of Spinal Canal, Percutaneous Approach (12/04/23) Labs on day of discharge: Laboratory Results - last 24 hr 02/23/25 02/23/25 02/23/25 05:30 12:21 16:48 WBC RBC Hgb Hct MCV MCH MCHC RDW Plt Count MPV Immature Gran % (Auto) Neut % (Auto) Lymph % (Auto) [place] % (Auto) Eos % (Auto) Baso % (Auto) Lymph # (Auto) [place] # (Auto) Eos # (Auto) Baso # (Auto) Abs Immat Gran (auto) Absolute Neuts (auto) Absolute Nucleated RBC Nucleated RBC % (auto) Sodium Potassium Chloride Carbon Dioxide Anion Gap BUN Creatinine Estim Creat Clear Calc Estimated GFR POC Glucose 111 108 Random Glucose Estimat Average Glucose 123 Hemoglobin A1c % 5.9 Calcium Phosphorus Magnesium Total Bilirubin AST ALT Alkaline Phosphatase Total Protein Albumin 02/23/25 02/23/25 02/24/25 21:11 22:32 06:25 WBC 9.1 RBC Hgb Hct MCV MCH MCHC RDW Plt Count MPV Immature Gran % (Auto) Neut % (Auto) Lymph % (Auto) Creek % (Auto) Eos % (Auto) Baso % (Auto) Lymph # (Auto) [place] # (Auto) Eos # (Auto) Baso # (Auto) Abs Immat Gran (auto) Absolute Neuts (auto) Absolute Nucleated RBC Nucleated RBC % (auto) Sodium Potassium Chloride Carbon Dioxide Anion Gap BUN Creatinine Estim Creat Clear Calc Estimated GFR POC Glucose 165 H 140 H Random Glucose Estimat Average Glucose Hemoglobin A1c % Calcium Phosphorus Magnesium Total Bilirubin AST ALT Alkaline Phosphatase Total Protein Albumin 02/24/25 02/24/25 02/24/25 06:25 06:25 06:25 WBC Cancelled RBC 4.18 L Cancelled Hgb 12.3 Cancelled Hct 36.9 L MCV MCH MCHC RDW Plt Count MPV Immature Gran % (Auto) Neut % (Auto) Lymph % (Auto) [place] % (Auto) Eos % (Auto) Baso % (Auto) Lymph # (Auto) [place] # (Auto) Eos # (Auto) Baso # (Auto) Abs Immat Gran (auto) Absolute Neuts (auto) Absolute Nucleated RBC Nucleated RBC % (auto) Sodium Potassium Chloride Carbon Dioxide Anion Gap BUN Creatinine Estim Creat Clear Calc Estimated GFR POC Glucose Random Glucose Estimat Average Glucose Hemoglobin A1c % Calcium Phosphorus Magnesium Total Bilirubin AST ALT Alkaline Phosphatase Total Protein Albumin 02/24/25 02/24/25 02/24/25 06:25 06:25 06:25 WBC RBC Hgb Hct Cancelled MCV 88.3 Cancelled MCH 29.4 Cancelled MCHC 33.3 RDW Plt Count MPV Immature Gran % (Auto) Neut % (Auto) Lymph % (Auto) [place] % (Auto) Eos % (Auto) Baso % (Auto) Lymph # (Auto) [place] # (Auto) Eos # (Auto) Baso # (Auto) Abs Immat Gran (auto) Absolute Neuts (auto) Absolute Nucleated RBC Nucleated RBC % (auto) Sodium Potassium Chloride Carbon Dioxide Anion Gap BUN Creatinine Estim Creat Clear Calc Estimated GFR POC Glucose Random Glucose Estimat Average Glucose Hemoglobin A1c % Calcium Phosphorus Magnesium Total Bilirubin AST ALT Alkaline Phosphatase Total Protein Albumin 02/24/25 02/24/25 02/24/25 06:25 06:25 06:25 WBC RBC Hgb Hct MCV MCH MCHC Cancelled RDW 13.0 Cancelled Plt Count 273 Cancelled MPV 9.7 Immature Gran % (Auto) Neut % (Auto) Lymph % (Auto) [place] % (Auto) Eos % (Auto) Baso % (Auto) Lymph # (Auto) [place] # (Auto) Eos # (Auto) Baso # (Auto) Abs Immat Gran (auto) Absolute Neuts (auto) Absolute Nucleated RBC Nucleated RBC % (auto) Sodium Potassium Chloride Carbon Dioxide Anion Gap BUN Creatinine Estim Creat Clear Calc Estimated GFR POC Glucose Random Glucose Estimat Average Glucose Hemoglobin A1c % Calcium Phosphorus Magnesium Total Bilirubin AST ALT Alkaline Phosphatase Total Protein Albumin 02/24/25 02/24/25 02/24/25 06:25 06:25 06:25 WBC RBC Hgb Hct MCV MCH MCHC RDW Plt Count MPV Cancelled Immature Gran % (Auto) 0.4 Cancelled Neut % (Auto) 59.3 Cancelled Lymph % (Auto) 27.5 Creek % (Auto) Eos % (Auto) Baso % (Auto) Lymph # (Auto) [place] # (Auto) Eos # (Auto) Baso # (Auto) Abs Immat Gran (auto) Absolute Neuts (auto) Absolute Nucleated RBC Nucleated RBC % (auto) Sodium Potassium Chloride Carbon Dioxide Anion Gap BUN Creatinine Estim Creat Clear Calc Estimated GFR POC Glucose Random Glucose Estimat Average Glucose Hemoglobin A1c % Calcium Phosphorus Magnesium Total Bilirubin AST ALT Alkaline Phosphatase Total Protein Albumin 02/24/25 02/24/25 02/24/25 06:25 06:25 06:25 WBC RBC Hgb Hct MCV MCH MCHC RDW Plt Count MPV Immature Gran % (Auto) Neut % (Auto) Lymph % (Auto) Cancelled [place] % (Auto) 8.4 Cancelled Eos % (Auto) 3.6 Cancelled Baso % (Auto) 0.8 Lymph # (Auto) [place] # (Auto) Eos # (Auto) Baso # (Auto) Abs Immat Gran (auto) Absolute Neuts (auto) Absolute Nucleated RBC Nucleated RBC % (auto) Sodium Potassium Chloride Carbon Dioxide Anion Gap BUN Creatinine Estim Creat Clear Calc Estimated GFR POC Glucose Random Glucose Estimat Average Glucose Hemoglobin A1c % Calcium Phosphorus Magnesium Total Bilirubin AST ALT Alkaline Phosphatase Total Protein Albumin 02/24/25 02/24/25 02/24/25 06:25 06:25 06:25 WBC RBC Hgb Hct MCV MCH MCHC RDW Plt Count MPV Immature Gran % (Auto) Neut % (Auto) Lymph % (Auto) [place] % (Auto) Eos % (Auto) Baso % (Auto) Cancelled Lymph # (Auto) 2.5 Cancelled [place] # (Auto) 0.8 Cancelled Eos # (Auto) 0.3 Baso # (Auto) Abs Immat Gran (auto) Absolute Neuts (auto) Absolute Nucleated RBC Nucleated RBC % (auto) Sodium Potassium Chloride Carbon Dioxide Anion Gap BUN Creatinine Estim Creat Clear Calc Estimated GFR POC Glucose Random Glucose Estimat Average Glucose Hemoglobin A1c % Calcium Phosphorus Magnesium Total Bilirubin AST ALT Alkaline Phosphatase Total Protein Albumin 02/24/25 02/24/25 02/24/25 06:25 06:25 06:25 WBC RBC Hgb Hct MCV MCH MCHC RDW Plt Count MPV Immature Gran % (Auto) Neut % (Auto) Lymph % (Auto) [place] % (Auto) Eos % (Auto) Baso % (Auto) Lymph # (Auto) [place] # (Auto) Eos # (Auto) Cancelled Baso # (Auto) 0.1 Cancelled Abs Immat Gran (auto) 0.04 H Cancelled Absolute Neuts (auto) 5.4 Absolute Nucleated RBC Nucleated RBC % (auto) Sodium Potassium Chloride Carbon Dioxide Anion Gap BUN Creatinine Estim Creat Clear Calc Estimated GFR POC Glucose Random Glucose Estimat Average Glucose Hemoglobin A1c % Calcium Phosphorus Magnesium Total Bilirubin AST ALT Alkaline Phosphatase Total Protein Albumin 02/24/25 02/24/25 02/24/25 06:25 06:25 06:25 WBC RBC Hgb Hct MCV MCH MCHC RDW Plt Count MPV Immature Gran % (Auto) Neut % (Auto) Lymph % (Auto) [place] % (Auto) Eos % (Auto) Baso % (Auto) Lymph # (Auto) [place] # (Auto) Eos # (Auto) Baso # (Auto) Abs Immat Gran (auto) Absolute Neuts (auto) Cancelled Absolute Nucleated RBC 0.000 Cancelled Nucleated RBC % (auto) 0.0 Cancelled Sodium 139 Potassium 3.8 Chloride 105 Carbon Dioxide 26 Anion Gap 12 BUN 23 H Creatinine 1.17 Estim Creat Clear Calc 79.7 Estimated GFR 52 POC Glucose Random Glucose 130 H Estimat Average Glucose Hemoglobin A1c % Calcium 10.2 Phosphorus 2.9 Magnesium 2.2 Total Bilirubin 0.6 AST 22 ALT 16 Alkaline Phosphatase 94 Total Protein 7.0 Albumin 4.0 02/24/25 07:31 WBC RBC Hgb Hct MCV MCH MCHC RDW Plt Count MPV Immature Gran % (Auto) Neut % (Auto) Lymph % (Auto) Creek % (Auto) Eos % (Auto) Baso % (Auto) Lymph # (Auto) [place] # (Auto) Eos # (Auto) Baso # (Auto) Abs Immat Gran (auto) Absolute Neuts (auto) Absolute Nucleated RBC Nucleated RBC % (auto) Sodium Potassium Chloride Carbon Dioxide Anion Gap BUN Creatinine Estim Creat Clear Calc Estimated GFR POC Glucose 131 H Random Glucose Estimat Average Glucose Hemoglobin A1c % Calcium Phosphorus Magnesium Total Bilirubin AST ALT Alkaline Phosphatase Total Protein Albumin Discharge Plan Discharge Anticipated Discharge Date/Time: 02/24/25 10:45 Patient Disposition: Home, Self-Care Discharge Diagnosis: Hypertensive emergency Discharge Medications: New spironolactone 25 mg Tablet 25 mg PO BID@0900,1800 Qty: 60 0RF Protocol: Hold for SBP< HOLD for SBP < : 90 clonidine HCl 0.2 mg Tablet 0.2 mg PO BID Qty: 60 0RF Protocol: Hold for SBP< HOLD for SBP < : 90 (DME) blood pressure monitor [Blood Pressure Kit] Kit See Rx Instructions .Route Qty: 1 0RF Rx Instructions: As directed Continued amlodipine 10 mg Tablet 10 mg PO DAILY Qty: 90 0RF Protocol: Hold for SBP< HOLD for SBP < : 90 lisinopril 40 mg Tablet 40 mg PO DAILY Qty: 90 0RF Protocol: Hold for SBP< HOLD for SBP < : 90 No Action (DME) FreeStyle Lite Strips Strip Qty: 100 0RF Rx Instructions: Test four times a day or as directed. (DME) blood-glucose meter [FreeStyle Lite Meter] Kit Qty: 1 0RF Rx Instructions: As Directed (DME) lancets [FreeStyle Lancets] 28 gauge misc Qty: 100 0RF Rx Instructions: Test four times a day or as directed. Discharge Orders: Discharge Order (Routine); Ordered 02/24/25 Ordered By: Marianela Forrest Diet: Advance to usual diet Activity on Discharge: As tolerated Stand Alone Forms: Patient Portal Discharge page Print Language: Tristanian Care Plan Goals: Do not miss any doses of your medication! Take all blood pressure medications as prescribed Check blood pressures daily and document to share with primary care provider Weight loss, diet management and exercise we will be an important mainstay and management of blood pressure Health Concerns: Hypertensive emergency Plan of Treatment: Follow up with the primary care provider as needed Take all medications as prescribed Assessment: See discharge summary
[2025-02-24 11:13] LABS: Glucose, Whole Blood 158 mg/dL (60-115)
[2025-02-24 11:37] VITALS: BP 162/90; PULSE 56; RESP 20; TEMP 36.4; O2SAT 100
--- NOTE | 2025-02-24 12:31 | MHC.CM.PN ---
PT LIVES WITH HER CHILDREN AND IS INDEPENDENT WITH CARE SHE HAS NO DME AND NO SERVICES SHE HAS NO PCP AND DECLINES A HCP PT DISCHARGED HOME TODAY WITH NO SERVICES VIA PRIVATE TRANSPORT
--- NOTE | 2025-02-24 17:36 | P.CDIM_ITS ---
PROVIDER RESPONSE TEXT: To clarify, the appropriate diagnosis supported by the clinical indicators: Metabolic QUERY TEXT: PHYSICIAN'S DOCUMENTATION REQUEST Date of Query: 02/24/2025 11:15 AM EDT Patient Name: Batsheva Gillespie Admit Date: 02/22/2025 Dear Marianela Forrest COMMUNICATIONS CONTROLLER, A review of the medical record indicates additional documentation may be needed. Please review below and update the documentation accordingly. Clinical Indicators: Progress note dated 02/23/25 - Hypertensive emergency/encephalopathy Medication noncompliance due to side effects-feeling dizzy. ED 02/21/25 - Confused, trying to answer questions but is confused, memory. ICU progress note 02/22/25 - altered mental status, Encephalopathy, on my assessment she is back at baseline. Altered mental status likely related to hypertensive emergency. Based on the above, please further specify, in the Progress Notes, the known or suspected type of the documented encephalopathy: Metabolic Toxic Toxic metabolic Hypertensive Other specified Other (explain) Clinically unable to determine (explain) Thank you, Sofiya Juarez, CCS, CDIS Use of terms such as suspected, likely, concern for, or probable (associated with a specific diagnosis that is being evaluated, monitored, or treated as if it exists) are acceptable and can be coded in the inpatient setting, when documented at the time of discharge. Please use your independent medical judgment in providing your response. THIS QUERY IS PART OF THE PERMANENT MEDICAL RECORD
== END 2025-02-24 13:24 | disposition home or self-care (01) | DRG 199 ==
LOC: HO.ED 02-22 02:41 → HO.EDOVER 02-22 02:50 → HO.ICU 02-22 02:54 → HO.IMC 02-23 16:59
PROVIDERS: Emergency Medicine; Internal Medicine Pulmonary Disease; Student in an Organized Health Care Education/Training Program; Admitting Provider Registered Nurse Community Health; Emergency Provider Emergency Medicine; Visit Provider Nurse Practitioner Acute Care
DX: I16.1 Hypertensive emergency (principal); G93.41 Metabolic encephalopathy; I67.83 Posterior reversible encephalopathy syndrome; I10 Essential (primary) hypertension; F17.210 Nicotine dependence, cigarettes, uncomplicated; Z71.6 Tobacco abuse counseling; E11.9 Type 2 diabetes mellitus without complications; M54.9 Dorsalgia, unspecified; G89.29 Other chronic pain; E66.01 Morbid (severe) obesity due to excess calories; T46.5X6A Underdosing of other antihypertensive drugs, initial encounter; Z68.38 Body mass index [BMI] 38.0-38.9, adult; Z71.3 Dietary counseling and surveillance; Z79.899 Other long term (current) drug therapy
CPT/HCPCS: 36415; 70450; 80048; 80053; 80076; 80307; 81003; 82040; 82947; 83036; 83690; 83735; 84100; 84484; 84702; 85025; 93005; 99285; J0360; J1650; J1885; J1920; J2270; J2404; J2405

== ENCOUNTER → 2025-02-21 22:46 | Outpatient (BNV) | payer MEDICAID, SELFPAY | PROVIDERS: Admitting Provider Registered Nurse Community Health; Emergency Provider Emergency Medicine; Visit Provider Internal Medicine Cardiovascular Disease | DX: I51.7 Cardiomegaly (principal) | CPT/HCPCS: 93010 ==

== ENCOUNTER → 2025-02-21 22:48 | Outpatient (BNV) | payer MEDICAID, SELFPAY | PROVIDERS: Emergency Provider Emergency Medicine; Visit Provider Radiology Neuroradiology | DX: R41.82 Altered mental status, unspecified (principal) | CPT/HCPCS: 70450 ==

== ENCOUNTER 2025-02-22 02:37 | Outpatient (BNV) | payer MEDICAID, SELFPAY | END 2025-02-22 10:19 | PROVIDERS: Admitting Provider Registered Nurse Community Health; Emergency Provider Emergency Medicine; Visit Provider Radiology Diagnostic Radiology | DX: R41.82 Altered mental status, unspecified (principal) | CPT/HCPCS: 70450 ==

== ENCOUNTER 2025-02-22 02:37 | Outpatient (BNV) | payer MEDICAID, SELFPAY | END 2025-02-23 08:40 | PROVIDERS: Admitting Provider Registered Nurse Community Health; Emergency Provider Emergency Medicine; Visit Provider Internal Medicine Cardiovascular Disease | DX: I49.9 Cardiac arrhythmia, unspecified (principal); R00.1 Bradycardia, unspecified | CPT/HCPCS: 93010 ==

== ENCOUNTER → 2025-02-22 02:37 | Outpatient (BNV) | payer MEDICAID, SELFPAY | PROVIDERS: Admitting Provider Registered Nurse Community Health; Emergency Provider Emergency Medicine; Visit Provider Internal Medicine Pulmonary Disease | DX: I16.1 Hypertensive emergency (principal); I67.83 Posterior reversible encephalopathy syndrome | CPT/HCPCS: 99232 ==

== ENCOUNTER → 2025-02-22 02:37 | Outpatient (BNV) | payer MEDICAID, SELFPAY | PROVIDERS: Admitting Provider Registered Nurse Community Health; Emergency Provider Emergency Medicine; Visit Provider Registered Nurse Community Health | DX: I16.1 Hypertensive emergency (principal) | CPT/HCPCS: 99291 ==

== ENCOUNTER → 2025-02-22 02:37 | Outpatient (BNV) | payer MEDICAID, SELFPAY | PROVIDERS: Admitting Provider Registered Nurse Community Health; Emergency Provider Emergency Medicine; Visit Provider Student in an Organized Health Care Education/Training Program | DX: I16.1 Hypertensive emergency (principal) | CPT/HCPCS: 99239 ==

== ENCOUNTER 2025-02-24 12:21 | Emergency (ER) | payer MEDICAID, SELFPAY ==
[2025-02-24 12:40] VITALS: BP 225/105; PULSE 50; RESP 16; TEMP 36.4; O2SAT 98; BMI 41.4
--- NOTE | 2025-02-24 12:42 | ED.GENADULT ---
HPI - General Adult General Chief complaint: Dizziness Stated complaint: just got d/c from [facility], hypertension? Time Seen by Provider: 02/24/25 14:05 Mode of arrival: ambulatory Limitations: no limitations History of Present Illness ED Provider: NILES Huber HPI narrative: I went to interview patient and she was not in her room, patient left without completing treatment. I was unable to interview patient to see what was going on today. Related Data Previous Rx's ?Medication ?Instructions ?Recorded blood sugar diagnostic (FreeStyle #100 ea 12/07/23 Lite Strips) blood-glucose meter (FreeStyle #1 ea 12/07/23 Lite Meter kit) lancets 28 gauge (FreeStyle #100 ea 12/07/23 Lancets) amlodipine 10 mg tablet 10 mg PO DAILY #90 tabs 02/24/25 blood pressure monitor (Blood #1 ea 02/24/25 Pressure Kit) clonidine HCl 0.2 mg tablet 0.2 mg PO BID #60 tabs 02/24/25 lisinopril 40 mg tablet 40 mg PO DAILY #90 tabs 02/24/25 spironolactone 25 mg tablet 25 mg PO BID@0900,1800 #60 tabs 02/24/25 Allergies Allergy/AdvReac Type Severity Reaction Status Date / Time No Known Allergies Allergy Verified 02/26/25 08:28 [facility] Past Medical History Medical History Hypertension Surgical History History of facial surgery H/O tubal ligation History of bunionectomy Family History Family History Maternal Grandmother History of breast cancer Social History Social History Household Members: Children Housing: Apartment Do you presently have visiting nurse or other home services: No Patient Tobacco Use Status: Current everyday Tobacco user Tobacco use type: Cigarette Cigarettes Per Day: 10 service: No Physical Exam ED Vital Signs: Vital Signs - 24 hr 02/24/25 12:40 Temperature 97.5 F Pulse Rate 50 Respiratory Rate 16 Blood Pressure 225/105 H Pulse Oximetry 98 Oxygen Delivery Method Room Air BMI result Body Mass Index 41.4 Course Course Course Narrative: Rapid medical examination performed in triage by Grace Mulligan PA-C. Patient is a 34 year old assigned female at presenting to the emergency department with dizziness and feeling generally unwell. Patient states that she was admitted for high blood pressure and not feeling well, was discharged today, and got to her car and began to feel much worse. Detailed physical exam and review of systems are deferred to the industrial hygiene engineer. EKG, labs, swabs, and imaging ordered. Patient placed back in the waiting room pending room availability and results. Medical Decision Making Lab Data 02/24/25 12:57 02/24/25 12:57 Labs: Lab Results 02/24/25 Range/Units 12:57 WBC 9.8 (4.8-10.8) X10*3/uL RBC 4.04 L (4.20-5.50) X10*6/uL Hgb 12.0 (12.0-16.0) g/dl Hct 35.6 L (37.0-47.0) % MCV 88.1 (80.0-98.0) fL MCH 29.7 (27.0-33.0) pg MCHC 33.7 (31.0-35.0) g/dl RDW 12.9 (11.0-16.0) % Plt Count 294 (160-400) X10*3/uL MPV 9.5 (9.4-12.3) fL Immature Gran % (Auto) 0.4 (0.0-0.4) % Neut % (Auto) 60.3 (45-73) % Lymph % (Auto) 27.0 (20-40) % [place] % (Auto) 8.4 (2-11) % Eos % (Auto) 3.1 (0-4) % Baso % (Auto) 0.8 (0-2) % Lymph # (Auto) 2.6 (1.2-4.9) X10*3/uL [place] # (Auto) 0.8 (0.1-1.2) X10*3/uL Eos # (Auto) 0.3 (0.0-0.4) X10*3/uL Baso # (Auto) 0.1 (0.0-0.2) X10*3/uL Abs Immat Gran (auto) 0.04 H (0.00-0.03) X10*3/uL Absolute Neuts (auto) 5.9 (2.0-8.3) x10*3/uL Absolute Nucleated RBC 0.000 (0.0-0.012) X10*3/uL Nucleated RBC % (auto) 0.0 (0.0-0.2) /100WBC Sodium 141 (135-145) mmol/L Potassium 3.7 (3.3-5.1) mmol/L Chloride 105 (96-108) mmol/L Carbon Dioxide 28 (22-29) mmol/L Anion Gap 12 (12-20) BUN 23 H (9-16) mg/dL Creatinine 1.20 (0.5-1.4) mg/dL Estim Creat Clear Calc 70.0 Estimated GFR 51 Random Glucose 80 (60-115) mg/dL Calcium 10.4 H (8.4-10.2) mg/dL Magnesium 2.1 (1.6-2.6) mg/dL Total Bilirubin 0.6 (0.0-1.0) mg/dL AST 25 (5-31) U/L ALT 21 (0-31) U/L Alkaline Phosphatase 95 (39-117) U/L Troponin I High Sens 10.2 (<3.5-17.0) ng/L Total Protein 7.3 (6.5-8.0) g/dL Albumin 4.3 (3.5-5.0) g/dL Beta HCG, Quant < 2 mIU/mL Discharge Plan Discharge Clinical Impression: HTN (hypertension) Patient Disposition: Left W/O Completing Treatment Prescriptions: No Action (DME) FreeStyle Lite Strips Strip Qty: 100 0RF Rx Instructions: Test four times a day or as directed. (DME) blood-glucose meter [FreeStyle Lite Meter] Kit Qty: 1 0RF Rx Instructions: As Directed (DME) lancets [FreeStyle Lancets] 28 gauge misc Qty: 100 0RF Rx Instructions: Test four times a day or as directed. spironolactone 25 mg Tablet 25 mg PO BID@0900,1800 Qty: 60 0RF Protocol: Hold for SBP< HOLD for SBP < : 90 clonidine HCl 0.2 mg Tablet 0.2 mg PO BID Qty: 60 0RF Protocol: Hold for SBP< HOLD for SBP < : 90 amlodipine 10 mg Tablet 10 mg PO DAILY Qty: 90 0RF Protocol: Hold for SBP< HOLD for SBP < : 90 lisinopril 40 mg Tablet 40 mg PO DAILY Qty: 90 0RF Protocol: Hold for SBP< HOLD for SBP < : 90 (DME) blood pressure monitor [Blood Pressure Kit] Kit See Rx Instructions .Route Qty: 1 0RF Rx Instructions: As directed Discharge Date/Time: 02/24/25 14:40
--- NOTE | 2025-02-24 12:43 | ECG_ITS ---
Test Reason : WEAKNESS Blood Pressure : */* mmHG Vent. Rate : 49 BPM Atrial Rate : 49 BPM P-R Int : 142 ms QRS Dur : 88 ms QT Int : 456 ms P-R-T Axes : 14 -7 35 degrees QTcB Int : 411 ms Sinus bradycardia Moderate voltage criteria for LVH, may be normal variant ( R in aVL , [place] product ) Nonspecific T wave abnormality Abnormal ECG When compared with ECG of 23-Feb-2025 08:50, No significant change was found Referred By: Grace Mulligan Electronically Signed By: MORELIA CUNHA MD
[2025-02-24 13:01] LABS: MANUAL DIFF FLAG NO
[2025-02-24 13:07] LABS: Hematocrit 35.6 % (37.0-47.0); Hemoglobin 12.0 g/dl (12.0-16.0); Imm Gran Abs Auto 0.04 X10*3/uL (0.00-0.03); Imm Gran Pct Auto 0.4 % (0.0-0.4); Lymphocytes Absolute Auto 2.6 X10*3/uL (1.2-4.9); Mean Corpuscular HGB Conc 33.7 g/dl (31.0-35.0); Mean Corpuscular Hemoglobin 29.7 pg (27.0-33.0); Mean Corpuscular Volume 88.1 fL (80.0-98.0); NRBC Abs Auto 0.000 X10*3/uL (0.0-0.012); NRBC Pct Auto 0.0 /100WBC (0.0-0.2); Platelet Count 294 X10*3/uL (160-400); Red Blood Count 4.04 X10*6/uL (4.20-5.50); White Blood Count 9.8 X10*3/uL (4.8-10.8)
[2025-02-24 13:36] LABS: Alanine Aminotransferase 21 U/L (0-31); Albumin Level 4.3 g/dL (3.5-5.0); Alkaline Phosphatase 95 U/L (39-117); Anion Gap 12 (12-20); Aspartate Amino Transferase 25 U/L (5-31); Blood Urea Nitrogen 23 mg/dL (9-16); Calcium 10.4 mg/dL (8.4-10.2); Carbon Dioxide 28 mmol/L (22-29); Chloride 105 mmol/L (96-108); Creatinine Clr Calc Pharmacy 70.0; Estimated Glomerular Filt Rate 51; Magnesium 2.1 mg/dL (1.6-2.6); Potassium 3.7 mmol/L (3.3-5.1); Sodium 141 mmol/L (135-145); Total Protein 7.3 g/dL (6.5-8.0); Troponin-I High Sensitivity 10.2 ng/L (<3.5-17.0)
--- NOTE | 2025-02-24 14:40 | PC.NURSE ---
Upon RN arrival to room, pt not found in room 17. Gown left on bed, belongings taken, bathrooms and imaging checked for pt location, but pt not found. PA aware of pt leaving without completing treatment.
--- OUTSIDE RECORDS SUMMARY | 2025-02-24 16:02 | XMS_ITS | Clinical Summary ---
[facility] Address [address] [place] [address] Care Team Providers Care Retail Office Manager Name Role Phone Chuck Her MD Primary Care Provider [phone] Social History Tobacco Use Types Packs/Day Years [...] age to complete this topic Care Teams Retail Office Manager Relationship Specialty Start Date End Date Chuck Her MD [address] [place] [address] Dr Mirela MA PCP - General 04/10/23
== END 2025-02-24 14:40 | disposition left against medical advice (07) ==
PROVIDERS: Physician Assistant Medical; Emergency Provider Emergency Medicine
DX: I10 Essential (primary) hypertension (principal); R53.1 Weakness
CPT/HCPCS: 36415; 80053; 83735; 84484; 84702; 85025; 93005; 99283

== ENCOUNTER → 2025-02-24 12:43 | Outpatient (BNV) | payer MEDICAID, SELFPAY | PROVIDERS: Emergency Provider Emergency Medicine; Visit Provider Internal Medicine Cardiovascular Disease | DX: R00.1 Bradycardia, unspecified (principal) | CPT/HCPCS: 93010 ==

== ENCOUNTER 2025-04-25 11:04 | Outpatient (REF) | payer MEDICAID, SELFPAY ==
--- NOTE | ~2025-04-25 | XR_ITS ---
EXAMINATION: X-ray lumbar spine CLINICAL INFORMATION: Chronic low back pain with left-sided sciatica COMPARISON: X-ray 12/06/2022 TECHNIQUE: 6 views FINDINGS: 5 lumbar type vertebral bodies. Vertebral body heights and bony alignment is maintained. No evidence of acute fracture, subluxation, or suspicious bony lesion. Disc spaces are maintained. SI joints are symmetric. No suspicious soft tissue calcifications. XR/XR lumbar spine 4V min IMPRESSION: No acute findings. Electronically signed by: Alvaro White MD 04/25/2025 12:41 PM [facility]
--- OUTSIDE RECORDS SUMMARY | 2025-04-25 10:20 | XMS_ITS | Encounter Summary ---
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 Role Phone Unavailable Primary Care Provider Unavailabl e Reason for Referral * Consultation (Routine) - Pending Review Specialty Diagnoses / Procedures Referred By Contac t Referred To Contact Physiatry Diagnoses Chronic low back pain with left-sided sciatica, unspecified back pain laterality Jojo Castro NP [address] [place] [phone] Phone: tel: fax: Referral ID Status Reason Start Date Expiration Date Visits Requested Visits Authorized [id number] Pending Review Specialty Services Required 04/25/2025 04/25/2026 1 1 Reason for Visit * Reason Comments Back Pain Encounter Details Date Type Department Care Team ([facility] st Contact Info) Description 04/25/2025 10:20 AM EST Office Visit [facility] [address] [place] [address] [phone] Chronic low back pain with left-sided sciatica, unspecified back pain laterality (Primary Dx) Social History Tobacco Use Types Packs/Day Years Used Date Smoking Tobacco: Every Day Cigarettes Passive Smoke Exposure: Current Tobacco Cessation:Ready to Q uit: Not Asked; Counseling Given: Not Answered Comments Unknown Sex and Gender Information Value Date Recorded Sex Assigned at Female 04/10/2025 12:44 PM EDT Legal Sex Female 1:10 PM EDT Gender Identity Female 04/10/2025 12:44 PM EDT Sexual Orientation Straight 04/10/2025 12 :44 PM EDT documented as of this encounter Last Filed Vital Signs Vital Sign Reading Time Taken Comments Blood Pressure 161/99 04/25/2025 10:42 AM EST Pulse 69 04/25/2025 10:42 AM EST Temperature 36.7 C (98.1 F) 04/25/2025 10:42 AM EST Respiratory Rate 18 04/25/2025 10:42 AM EST Oxygen Saturation 99% 04/25/2025 10:42 AM EST Inhaled Oxygen Concentration - - Weight 104 kg (230 lb) 04/25/2025 10:42 AM EST Height - - Body Mass Index 43.46 04/10/2025 1:35 PM EDT documented in this encounter Miscellaneous Notes * Assessment & Plan Note - Jojo Castro NP - 04/25/2025 10:20 AM ESTAssociated Problem(s): Chronic low back pain with left-sided sciatica Orders: XR Lumbar Spine Complete 4+ Views; Future Referral to Physiatry; Future documented in this encounter Plan of Treatment Upcoming Encounters Date Type Department Care Team (Late st Contact Info) Description 05/19/2025 2:00 PM EST Office Visit [facility] [address] [place] [address] Jillian Shanks MD [address] [place] [address] Scheduled Referrals Name Type Priority Associated Diagnoses Orde r Schedule Referral to Physiatry Outpatient Referral Routine Chronic low back pain with left-sided sciatica, unspecified back pain laterality Expected: 04/25/2025 (Approximate), Expires: 04/25/2026 documented as of this encounter Procedures Procedure Name Priority Date/Time Associated Diagnosis Comments XR LUMBAR SPINE COMPLETE 4+ VIEWS Routine 04/25/2025 11:22 AM EST Chronic low back pain with left-sided sciatica, unspecified back pain laterality documented in this encounter Results * XR Lumbar Spine Complete 4+ Views (04/25/2025 11:22 AM EST) Anatomical Region Laterality Modality Spine, L-spine Radiographic Guerita ging 04/25/2025 11:2 2 AM EST Narrative 04/25/2025 12:44 PM EST [facility] [address] [place] [address] XRay Report Signed Patient: Batsheva Gillespie MR#: [id number] : 1990 Acct:[id number] Age/Sex: 34 / F ADM Date: 04/25/25 [facility]: Jojo Castro 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 Vertebral body heights and bony alignment is maintained. No evidence of acute fracture, subluxation, or suspicious bony lesion. Disc spaces are maintained. SI joints are symmetric. No suspicious soft tissue calcifications. XR/XR lumbar spine 4V min IMPRESSION: No acute findings. Electronically signed by: Alvaro White MD 04/25/2025 12:41 PM [facility] Dictated By: Alvaro White MD Signed By: <Electronically signed by Alvaro White MD in OV> 04/25/25 1241 DD/ 1122 TD/TT: 04/25/25 1122 Severity Of Illness Coordinator: Procedure Note Donotuseinterpreter, Image - 04/25/2025 [facility] [address] [place] [address] XRay Report Signed Patient: Batsheva Gillespie MMR#: [id number] : 1990Acct:[id number] Age/Sex: 34 / FADM Date: 04/25/25 [facility] Att[facility] Dr: Jojo Castro DIGITAL TECHNICIAN Ordering Physician: Jojo Castro NP Date of Service: 04/25/25 Procedure(s): XR lumbar spine 4V min Accession Number(s): [id number] cc: Jojo Castro NP Reason for Exam: left lumbar radiculopathy, no known trauma EXAMINATION: X-ray lumbar spine CLINICAL INFORMATION: Chronic low back pain with left-sided sciatica COMPARISON: X-ray 12/06/2022 TECHNIQUE: 6 views FINDINGS: 5 lumbar type vertebral bodies. Vertebral body heights and bony alignment is maintained. No evidence of acute fracture, subluxation, or suspicious bony lesion. Disc spaces are maintained. SI joints are symmetric. No suspicious soft tissue calcifications. XR/XR lumbar spine 4V min IMPRESSION: No acute findings. Electronically signed by: Alvaro White MD 04/25/2025 12:41 PM [facility] Dictated By: Alvaro White MD Signed By: <Electronically signed by Alvaro White MD in OV> 04/25/25 1241 DD/ 1122 TD/TT: 04/25/25 1122 Severity Of Illness Coordinator: AISHA us Jojo Castro NP IMG XR PROCEDURES Final Result documented in this encounter Visit Diagnoses Diagnosis Chronic low back pain with left-sided sciatica, unspecified back pain laterality- Primary documented in this encounter
--- OUTSIDE RECORDS SUMMARY | 2025-04-25 13:19 | XMS_ITS | Encounter Summary ---
Author Organization [employer] Address [address] [facility] [address] [place] [address] Care Team Providers Care Transcript Clerk Name Role Phone Unavailable Primary Care Provider Unavailabl e Encounter Details Date Type Department Care Team (Latest Contact Info) Description 04/25/2025 Travel Social History Tobacco Use Types Packs/Day Years Used Date Smoking Tobacco: Every Day Cigarettes Passive Smoke Exposure: Current Comments Unknown Sex and Gender Information Value Date Recorded Sex Assigned at Female 04/10/2025 12:44 PM EDT Legal Sex Female 1:10 PM EDT Gender Identity Female 04/10/2025 12:44 PM EDT Sexual Orientation Straight 04/10/2025 12 :44 PM EDT documented as of this encounter Plan of Treatment Upcoming Encounters Date Type Department Care Team (Late st Contact Info) Description 05/19/2025 2:00 PM EST Office Visit [facility] [address] [place] [phone] Jillian Shanks MD [address] [place] [address] documented as of this encounter Visit Diagnoses Not on filedocumented in this encounter
--- OUTSIDE RECORDS SUMMARY | 2025-04-25 13:19 | XMS_ITS | Clinical Summary ---
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 90 tablet 04/10/20 25 Active amLODIPine (Norvasc) 10 MG tablet Take 1 tablet (10 mg) by mouth Once per day. 90 tablet 04/10/20 25 Active cloNIDine (Catapres) 0.2 MG tablet Take 1 tablet (0.2 mg) by mouth 2 times daily. 180 tablet 04/10/20 25 026 Active spironolactone (Aldactone) 25 MG tablet Take 1 tablet (25 mg) by mouth 2 times daily. 180 tablet 04/10/20 25 026 Active acetaminophen (Tylenol 8 Hour) 650 MG ER tablet Take 1 tablet (650 mg) by mouth every 8 (eight) hours if needed for mild pain. Do not crush, chew, or split. 40 tablet 1 04/10/20 25 025 Active predniSONE (Deltasone) 20 MG tablet Take 1 tablet (20 mg) by mouth 3 times daily for 5 days, THEN 1 tablet (20 mg) 2 times daily for 2 days, THEN 1 tablet (20 mg) Once per day for 2 days. 21 tablet 04/25/20 25 025 Active cyclobenzaprin e (Flexeril) 10 MG tablet Take 1 tablet (10 mg) by mouth if needed in the morning, at noon, and at bedtime for muscle spasms for up to 10 days. 30 tablet 04/25/20 25 025 Active spironolactone (Aldactone) 25 MG tablet TAKE 1 TABLET BY MOUTH TWICE A DAY @0900,1800 02/25/20 025 Discontinued(Re order (will not trigger notification to Pharmacy)) lisinopril 40 MG tablet Take 1 tablet by mouth Once per day. 02/25/20 025 Discontinued(Re order (will not trigger notification to Pharmacy)) cloNIDine (Catapres) 0.2 MG tablet Take 1 tablet by mouth 2 times daily. 02/25/20 025 Discontinued(Re order (will not trigger notification to Pharmacy)) amLODIPine (Norvasc) 10 MG tablet Take 1 tablet by mouth Once per day. 02/25/20 025 Discontinued(Re order (will not trigger notification to Pharmacy)) baclofen (Lioresal) 10 MG tablet Take 1 tablet (10 mg) by mouth if needed in the morning, at noon, and at bedtime for muscle spasms. 40 tablet 1 04/10/20 Discontinued(In effective) Active Problems Problem Noted Date Diagnosed Date Chronic low back pain with left-sided sciatica 1 06/25/2024 Assessment & Plan (04/25/2025 10:54 AM EST): Orders: XR Lumbar Spine Complete 4+ Views; Future Referral to Physiatry; Future Essential hypertension 04/10/2025 Tobacco dependence 04/10/2025 Encounters Date Type Department Care Team Description 04/25/2025 10:20 AM EST Office Visit [facility] [address] [place] [phone] Chronic low back pain with left-sided sciatica, unspecified back pain laterality (Primary Dx) 04/25/2025 Travel 04/10/2025 1:40 PM EDT Office Visit [facility] [address] [place] [phone] Isabel Rider DO Essential hypertension (Primary Dx); Acute bilateral low back pain without sciatica 04/10/2025 Travel 02/10/2025 Telephone [facility] [address] [place] [address] Hector Hwang MD Appointment Request from Last [...] Orientation Straight 04/10/2025 12 :44 PM EDT Last Filed Vital Signs Vital Sign Reading Time Taken Comments Blood Pressure 161/99 04/25/2025 10:42 AM EST Pulse 69 04/25/2025 10:42 AM EST Temperature 36.7 C (98.1 F) 04/25/2025 10:42 AM EST Respiratory Rate 18 04/25/2025 10:42 AM EST Oxygen Saturation 99% 04/25/2025 10:42 AM EST Inhaled Oxygen Concentration - - Weight 104 kg (230 lb) 04/25/2025 10:42 AM EST Height 154.9 cm (5' 1 ) 04/10/2025 1:35 PM EDT Body Mass Index 43.46 04/10/2025 1:35 PM EDT Plan of Treatment Upcoming Encounters Date Type Department Care Team (Late st Contact Info) Description 05/19/2025 2:00 PM EST Office Visit [facility] [address] [place] [address] Jillian Shanks MD [address] [place] [address] Health Maintenance Due Date Last Done Comments Depression Screening 1990 HIV Screening 1990 Lipid Panel 1988 SDOH Screening 1988 Disability Screening 1988 Alcohol/Substance Use Screening 2000 Family Planning (PISQ) 2003 HPV Vaccines (1 - 3-dose series) 2003 Hepatitis C Screening 2006 DTaP/Tdap/Td Vaccines (1 - Tdap) 2007 Hepatitis B Vaccines (1 of 3 - 19+ 3-dose series) 2007 Pneumococcal Vaccine: Pediat rics (0 to 5 Years) and At-Risk Patients (6 to 49) Years (1 of 2 - PCV) 2007 Pap Smear 2009 Cervical Cancer Screening 2018 HPV/Cotest 2018 COVID-19 Vaccine (1 - 2023-2 5 season) 2025 Influenza Vaccine (#1) 2025 Tobacco Screening 04/25/2026 04/25/2025 Zoster Vaccines (1 of 2) 2038 RSV [...] on patient's age to complete this topic Procedures Procedure Name Priority Date/Time Associated Diagnosis Comments XR LUMBAR SPINE COMPLETE 4+ VIEWS Routine 04/25/2025 11:22 AM EST Chronic low back pain with left-sided sciatica, unspecified back pain laterality from Last 3 Months Results * XR Lumbar Spine Complete 4+ Views (04/25/2025 11:22 AM EST) Anatomical Region Laterality Modality Spine, L-spine Radiographic Guerita ging 04/25/2025 11:2 2 AM EST Narrative 04/25/2025 12:44 PM EST [address] [address] XRay Report Signed Patient: Batsheva Gillespie MR#: [id number] : 1990 Acct:[id number] Age/Sex: 34 / F ADM Date: 04/25/25 Loc: [facility] Attending Dr: Jojo Castro LOOM FIXER APPRENTICE Ordering Physician: Jojo Castro NP Date of Service: 04/25/25 Procedure(s): XR lumbar spine 4V min Accession Number(s): [id number] cc: Jojo Castro NP Reason for Exam: [...] by: Alvaro White MD 04/25/2025 12:41 PM [facility] Dictated By: Alvaro White MD Signed By: <Electronically signed by Alvaro White MD in OV> 04/25/25 1241 DD/ 1122 TD/TT: 04/25/25 1122 Box Printer: AISHA Procedure Note Donotuseinterpreter, Image - 04/25/2025 [place] [address] XRay Report Signed Patient: Batsheva Gillespie [facility]#: [id number] : 1990Acct:[id number] Age/Sex: 34 / FADM Date: 04/25/25 Loc: [facility] Attending Dr: Jojo Castro LOOM FIXER APPRENTICE Ordering Physician: Jojo Castro NP Date of Service: 04/25/25 Procedure(s): XR lumbar spine 4V min Accession Number(s): [id number] cc: Jojo Castro NP Reason for Exam: [...] by: Alvaro White MD 04/25/2025 12:41 PM EST Dictated By: Alvaro White MD Signed By: <Electronically signed by Alvaro White MD in OV> 04/25/25 1241 DD/ 1122 TD/TT: 04/25/25 1122 Box Printer: AISHA us Jojo Castro NP IMG XR PROCEDURES Final Result from Last 3 Months Insurance [facility] C3
== END 2025-04-25 11:05 | disposition home or self-care (01) ==
LOC: HO.HHCX 11:04
PROVIDERS: Visit Provider Nurse Practitioner Family
DX: M54.42 Lumbago with sciatica, left side (principal); G89.29 Other chronic pain; M54.16 Radiculopathy, lumbar region
CPT/HCPCS: 72110

== ENCOUNTER → 2025-04-25 11:04 | Outpatient (BNV) | payer MEDICAID, SELFPAY | PROVIDERS: Visit Provider Radiology Diagnostic Ultrasound | DX: M54.42 Lumbago with sciatica, left side (principal) | CPT/HCPCS: 72110 ==